=== PATIENT | male | born 1980 | race Caucasian/White ===

== ENCOUNTER 2018-06-20 11:47 | Emergency (ER) | payer OTHER, MEDICAID, SELFPAY ==
[2018-06-20 11:50] VITALS: BP 167/92; PULSE 82; RESP 24; TEMP 37; O2SAT 98
--- NOTE | 2018-06-20 11:54 | DI.RAD.S_ITS ---
PROCEDURE: XR CHEST 1V INDICATIONS: chest pain TECHNIQUE: One view of the chest was acquired. COMPARISON: [facility], , CHEST 2 VIEW, 08/30/2010, 13:55. FINDINGS: Surgical changes and devices: None. Lungs and pleura: No pleural effusions or pneumothorax. Lungs are clear considering reduced inspiratory volume. Mediastinum: Mediastinal contours appear normal. Heart size is normal. Bones and chest wall: No suspicious bony lesions. Overlying soft tissues appear unremarkable. IMPRESSION: Source of current symptoms is not seen. Reduced inspiratory volume. Dictated by: Meet Willett M.D. on 06/20/2018 at 12:04 Approved by: Meet Willett M.D. on 06/20/2018 at 12:05
[2018-06-20] MEDS: ASPIRIN 81 MG TAB 324 MG PO (12:05)
[2018-06-20] MEDS: NITROGLYCERIN 0.4 MG SL TAB SL (12:06)
[2018-06-20] MEDS: SODIUM CHLORIDE 0.9% 500 ML 150 ML IV (12:08)
[2018-06-20 12:09] VITALS: BP 143/63; PULSE 94; RESP 19; O2SAT 97
[2018-06-20 12:09] LABS: Add Manual Diff / Slide Review NO; Basophils Percent Auto 0.5 % (0-2); Eosinophils Percent Auto 2.7 % (2-4); Hematocrit 48.3 % (41-53); Hemoglobin 16.1 g/dL (13.5-17.5); Mean Corpuscular HGB Conc 33.3 % (30-36); Mean Corpuscular Volume 87.1 fL (80-100); Neutrophils Absolute Auto 9900 /uL (3000-5900); Neutrophils Percent Auto 69.8 % (50-75); Platelet Count 357 X10^3/uL (150-400); Red Blood Cell Count 5.54 X10^6/uL (4.5-5.9); Red Cell Distribution Width 13.7 % (11.6-14.8); White Blood Cell Count 14.2 X10^3/uL (4.5-11.0)
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
[2018-06-20 12:12] LABS: INR 1.1 (0.9-1.3); Prothrombin Time 12.2 SECONDS (10.1-12.7)
[2018-06-20 12:14] LABS: PTT Partial Thromboplastin Tim 29 SECONDS (26.4-36.2)
[2018-06-20 12:17] LABS: Alanine Aminotransferase 42 IU/L (21-72); Albumin 4.3 g/dL (3.5-5.0); Albumin Globulin Ratio 1.5 (1.0-2.8); Alkaline Phosphatase 94 U/L (38-126); Aspartate Aminotransferase 21 IU/L (17-59); BUN Creatinine Ratio 17.1 (6-22); Bilirubin Total 0.7 mg/dL (0.2-1.3); Blood Urea Nitrogen 12 mg/dL (9-20); Calcium 8.8 mg/dL (8.4-10.2); Carbon Dioxide 27 mmol/L (22-32); Chloride 104 mmol/L (98-107); Creatine Kinase 86 U/L (55-170); Estimated Glomerular Filt Rate > 60.0 mL/min (>60); Globulin 2.8 g/dL (1.7-4.1); Glucose 129 mg/dL (70-100); HEMOLYSIS < 15 (0-50); Lipase 61 U/L (23-300); Sodium 142 mmol/L (137-145); Total Protein 7.1 g/dL (6.3-8.2)
--- NOTE | 2018-06-20 12:22 | DI.RAD.S_ITS ---
PROCEDURE: XR CHEST 2V INDICATIONS: left lower chest pain TECHNIQUE: 2 views of the chest were acquired. COMPARISON: None. FINDINGS: Surgical changes and devices: None. Lungs and pleura: No pleural effusions or pneumothorax. Lungs are clear. Mediastinum: Mediastinal contours are normal. Heart size is normal. Bones and chest wall: No suspicious bony abnormalities. Soft tissues appear unremarkable. IMPRESSION: No acute cardiopulmonary disease process. Dictated by: Dacia Ramos MD, PhD on 06/20/2018 at 11:43 Approved by: Dacia Ramos MD, PhD on 06/20/2018 at 11:45
[2018-06-20 12:23] VITALS: BP 140/72; PULSE 93
[2018-06-20 12:29] LABS: Troponin I < 0.012 ng/mL (0.01-0.034)
[2018-06-20] MEDS: KETOROLAC 60 MG/2 ML VIAL 30 MG IV (12:37)
[2018-06-20 12:40] VITALS: BP 146/73; PULSE 87; RESP 20; O2SAT 97
[2018-06-20 12:48] LABS: D Dimer < 200 ng/mL (<230)
[2018-06-20 13:00] VITALS: BP 142/62; PULSE 77; RESP 18; O2SAT 98
[2018-06-20 13:16] VITALS: BP 142/62; PULSE 77; RESP 18; O2SAT 97
--- NOTE | 2018-06-28 12:46 | PC.NURSE ---
Late entry: NS infusing started at 1208 stopped at 1316. 160 cc infused w/o ill effect.
== END 2018-06-20 13:18 | disposition home or self-care (01) ==
PROVIDERS: Emergency Provider Emergency Medicine
DX: S29.011A Strain of muscle and tendon of front wall of thorax, initial encounter (principal)
CPT/HCPCS: 36591; 71045; 71046; 80053; 82550; 83690; 84484; 85025; 85379; 85610; 85730; 93005; 93041; 96361; 96374; 99283; 99285; J1885

== ENCOUNTER 2019-09-10 08:32 | Emergency (ER) | payer SELFPAY ==
[2019-09-10 08:52] VITALS: BP 165/110; PULSE 80; RESP 13; TEMP 36.4; O2SAT 98
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
--- NOTE | 2019-09-10 10:07 | PC.NURSE ---
C/o right hip pain and head pain. No apparent bruising, scratches or obvious injuries noted.
== END 2019-09-10 10:53 | disposition home or self-care (01) ==
PROVIDERS: Emergency Provider Emergency Medicine
DX: M25.551 Pain in right hip (principal); S09.90XA Unspecified injury of head, initial encounter; S39.92XA Unspecified injury of lower back, initial encounter; S29.9XXA Unspecified injury of thorax, initial encounter; V09.9XXA Pedestrian injured in unspecified transport accident, initial encounter
CPT/HCPCS: 70450; 71046; 72100; 72125; 72170; 99283; 99284

== ENCOUNTER 2020-03-03 14:55 | Emergency (ER) | payer SELFPAY ==
[2020-03-03 15:10] VITALS: BP 168/111; PULSE 77; RESP 16; TEMP 36.6; O2SAT 98; BMI 34.9
[2020-03-03 16:29] VITALS: BP 175/83; PULSE 63; O2SAT 98
--- NOTE | 2020-03-03 16:29 | PC.NURSE ---
pt brought back into department into rm 7. repeat vitals obtained
--- NOTE | 2020-03-03 16:38 | ED.FALL ---
HPI - Fall General Chief Complaint: Fall Stated Complaint: Fell Down Stairs, Lt Shoulder Pain, Head/Neck Pain Time Seen by Provider: 03/03/20 16:27 Source: patient and family Mode of arrival: Ambulatory History of Present Illness HPI Narrative: Patient driven here by his mother. Blood pressure on triage noted has improved. Patient here after having mechanical fall. Was walking up the steps at home and stepped on 1 of his daughters Lego pieces, startled him and he fell backwards. Awoke at the bottom of the steps. Complains of left shoulder pain and left-sided neck pain. Feel dizzy. Slightly nauseous. No confusion. Not repeating questions. Denies any pre fall events of chest pain headache palpitations abdominal pain or back pain. Denies any other injuries. No chest abdomen back or lower extremity or pelvis pain. No skin injury. Patient placed in hard collar at triage Related Data Previous Rx's Medication Instructions Recorded baclofen 20 mg PO TID PRN #20 tab 03/03/20 ondansetron 4 mg PO Q8H PRN #10 tab 03/03/20 Allergies Allergy/AdvReac Type Severity Reaction Status Date / Time Penicillins Allergy Intermediate Verified 03/03/20 16:39 Review of Systems Review of Systems Narrative: GENERAL: Denies chills, fatigue, malaise, fever, sweats. HEENT: Denies sinus pain, ear pain, sore throat, difficulty swallowing, dizziness. RESPIRATORY: Denies dyspnea, cough, wheezing, hemoptysis, sputum. CARDIOVASCULAR: Denies chest pain, palpitations, orthopnea, edema, GASTROINTESTINAL: Denies vomiting, abdominal pain, diarrhea, constipation, melena. Has nausea : Denies dysuria, frequency, incontinence, hematuria, urinary retention. MUSCULOSKELETAL: Complains of the shoulder joint pain and neck pain SKIN: Denies rash, skin lesions, or other NEUROLOGIC: Denies weakness, headache, numbness, change in speech, confusion, seizures, incoordination. PSYCHIATRIC: No concerning psychosocial issues. ROS Unobtainable: All systems reviewed & are unremarkable except as noted in HPI and below Patient History Medical History Hypertension (Acute) Surgical History No pertinent past surgical history (Acute) Social History Smoking Status: Current every day smoker Smoking Status: Current every day smoker Substance Use Type: marijuana Exam Narrative Exam Narrative: GENERAL: patient appears stated age. Well-nourished, well-developed patient, in no distress, not toxic HEAD: Atraumatic. Normocephalic. No scalp or skull tenderness in or skin injury crepitus or step-off. No bruising or bleeding or abrasion EYES: Pupils equal round and reactive. Extraocular motions intact. No scleral icterus. No injection or drainage. ENT: Nose without bleeding, purulent drainage. Throat without erythema, tonsillar hypertrophy or exudate. Airway patent. NECK: Trachea midline. Patient in hard collar but able to examined. There is left anterior trapezius muscle tenderness extending to the left side of the neck. CARDIOVASCULAR: Regular rate and rhythm without murmurs, gallops, or rubs. RESPIRATORY: Clear to auscultation. Breath sounds equal bilaterally. No wheezes, rales, or rhonchi. GASTROINTESTINAL: Abdomen soft, non-tender, nondistended. EXTREMITIES: No edema, there is tenderness to the anterior left shoulder but no deformity or step-offs. Able to bring left hand above his head and touch his right shoulder. Strong environmental sampling technician in radial pulse on the left side BACK: Nontender without deformity or crepitance. No flank tenderness. NEURO: AOx3. Clear speech no facial droop, no altered mental status. Answers questions appropriately. SKIN: No rash or erythema of visible areas Initial Vital Signs Initial Vital Signs: Vital Signs Temperature 97.8 F 03/03/20 15:10 Pulse Rate 77 03/03/20 15:10 Respiratory Rate 16 03/03/20 15:10 Blood Pressure 168/111 H 03/03/20 15:10 Pulse Oximetry 98 03/03/20 15:10 Course Course Course Narrative: Patient sleeping comfortably. I will patient to review results. C-collar cleared, CT C-spine no acute process. No midline tenderness or step-off. No nausea at this time no dizziness. Orders Ordered: Discontinued Medications Ondansetron HCl (Zofran Odt) 4 mg SL NOW ONE Stop: 03/03/20 16:38 Last Admin: 03/03/20 16:48 Dose: 4 mg Documented by: RIVERA Reevaluation(s) Reevaluation #1: Patient states feeling much better. He desires discharge home. Time: 18:24 Vital Signs Vital signs: Vital Signs - 8 hr 03/03/20 15:10 03/03/20 16:29 Temperature 97.8 F Pulse Rate 77 63 Respiratory Rate 16 Blood Pressure 168/111 H 175/83 H Pulse Oximetry 98 98 MDM - Fall Imaging Data CT scan - head: Radiologist's Impression: [address] [address] [address] Scan Report Signed Patient: Tushar Herron AMR#: [id number] : 1980Acct:[id number] Age/Sex: 40 / MDate of Service: 03/03/20 Loc: ED Accession Number: [id number] Procedure: CT head/brain wo con Ordering Provider: Bennett Cat MD PROCEDURE: CT HEAD/BRAIN WO CON INDICATIONS: Fall/injury TECHNIQUE: Noncontrast 4.5 mm thick angled axial sections acquired from the foramen magnum to the vertex, with coronal and sagittal reformats. For radiation dose reduction, the following was used: automated exposure control, adjustment of mA and/or kV according to patient size. COMPARISON: [facility], CT, CT HEAD/BRAIN WO CON, 09/10/2019, 9:04. [facility], CT, HEAD WITHOUT CONTRAST, 10/28/2008, 19:17. [facility], CT, CT CERVICAL SPINE WO CON, 03/03/2020, 16:37. FINDINGS: Image quality: Excellent. CSF spaces: Basal cisterns are patent. No extra-axial fluid collections. Ventricles are normal in size and shape. Brain: No midline shift. No intracranial masses or hemorrhage. Hanna-white matter interface is normal. Skull and face: Calvarium and visualized facial bones are intact, without suspicious lesions. Sinuses: Moderate mucosal thickening is seen within the maxillary sinuses. No significant mucosal thickening is seen elsewhere within the paranasal sinuses. No abnormal fluid is seen within the mastoid air cells. IMPRESSION: No acute intracranial hemorrhage is seen. No acute intracranial process is seen. Maxillary sinus disease again seen. Dictated by: Nicola Ramirez M.D. on 03/03/2020 at 16:04 Approved by: Nicola Ramirez M.D. on 03/03/2020 at 16:06 CT - cervical spine: Radiologist's Impression: [address] [address] [address] Scan Report Signed Patient: Tushar Herron AMR#: [id number] : 1980Acct:[id number] Age/Sex: 40 / MDate of Service: 03/03/20 Loc: ED Accession Number: [id number] Procedure: CT cervical spine wo con Ordering Provider: Bennett Cat MD PROCEDURE: CT CERVICAL SPINE WO CON INDICATIONS: Fall/injury TECHNIQUE: Noncontrast 3 mm thick sections acquired from the skull base to the T4 level. Sagittal and coronal reformats were then constructed. For radiation dose reduction, the following was used: automated exposure control, adjustment of mA and/or kV according to patient size. COMPARISON: [facility], CT, C-SPINE WITHOUT CONTRAST, 08/30/2010, 13:26. [facility], CT, CT HEAD/BRAIN WO CON, 03/03/2020, 16:37. [facility], CT, CT CERVICAL SPINE WO CON, 09/10/2019, 9:04. FINDINGS: Image quality: This examination is somewhat limited by quantum mottle artifact. Bones: No fractures or dislocations. Visualized superior ribs are intact. Mild to moderate disc space narrowing is seen at C5-C6 and C6-C7. Soft tissues: Prevertebral soft tissues are normal in thickness. No paravertebral hematomas. No apical pneumothoraces. IMPRESSION: No acute fractures are seen. Dictated by: Nicola Ramirez M.D. on 03/03/2020 at 16:06 Approved by: Nicola Ramirez M.D. on 03/03/2020 at 16:08 X-ray left shoulder: Radiologist's Impression: [address] [address] XRay Report Signed Patient: Tushar Herron AMR#: [id number] : 1980Acct:[id number] Age/Sex: 40 / MDate of Service: 03/03/20 Loc: ED Accession Number: [id number] Procedure: XR shoulder LT min 2V Ordering Provider: Bennett Cat MD PROCEDURE: XR SHOULDER LT MIN 2V INDICATIONS: pain/injury TECHNIQUE: 3 views of the shoulder were acquired. COMPARISON: None. FINDINGS: Bones: No fractures or dislocations. No suspicious bony lesions. Visualized ribs appear intact. Soft tissues: No suspicious soft tissue calcifications. IMPRESSION: Left shoulder without acute fracture or dislocation. If there is persistent clinical concern for occult fracture given adequate mechanism of injury, consider repeat imaging in 10-14 days. Dictated by: Johnnie De Jesus M.D. on 03/03/2020 at 18:09 Approved by: Johnnie De Jesus M.D. on 03/03/2020 at 18:12 [facility] Narrative Medical decision making narrative: Appropriate for discharge home. No altered mental status. Instructions for concussive syndrome given to patient. As well as shoulder strain/contusion Discharge Plan Departure Patient Disposition: Home Clinical Impression: Concussion with loss of consciousness Qualifiers: Encounter type: initial encounter Qualified Code(s): S06.0X9A - Concussion with loss of consciousness of unspecified duration, initial encounter Acute cervical myofascial strain Qualifiers: Encounter type: initial encounter Qualified Code(s): S16.1XXA - Strain of muscle, fascia and tendon at neck level, initial encounter Contusion of left shoulder Qualifiers: Encounter type: initial encounter Qualified Code(s): S40.012A - Contusion of left shoulder, initial encounter Discharge Date/Time: 03/03/20 18:49 Instructions: DI for Concussion, DI for Contusion, DI for Cervical Muscle Strain, DI for Shoulder Pain Activity Restrictions/Additional Instructions: No driving tonight. Return if worse. See family doctor in a week for recheck. Also have your blood pressure rechecked. Continue home medications. Return if worse or any questions or concerns. Her medications have been electronically sent to [facility] Prescriptions: New ondansetron 4 mg tablet,disintegrating 4 mg PO Q8H PRN (Reason: nausea and vomiting) Qty: 10 RF: 0 baclofen 20 mg tablet 20 mg PO TID PRN (Reason: pain) Qty: 20 RF: 0 Stand Alone Forms: Work Release Note
[2020-03-03] MEDS: ONDANSETRON 4 MG ODT SL (16:48)
--- NOTE | 2020-03-03 17:42 | DI.RAD.S_ITS ---
PROCEDURE: XR SHOULDER LT MIN 2V INDICATIONS: pain/injury TECHNIQUE: 3 views of the shoulder were acquired. COMPARISON: None. FINDINGS: Bones: No fractures or dislocations. No suspicious bony lesions. Visualized ribs appear intact. Soft tissues: No suspicious soft tissue calcifications. IMPRESSION: Left shoulder without acute fracture or dislocation. If there is persistent clinical concern for occult fracture given adequate mechanism of injury, consider repeat imaging in 10-14 days. Dictated by: Johnnie De Jesus M.D. on 03/03/2020 at 18:09 Approved by: Johnnie De Jesus M.D. on 03/03/2020 at 18:12
[2020-03-03 18:40] VITALS: BP 151/87; PULSE 77; O2SAT 100
== END 2020-03-03 18:49 | disposition home or self-care (01) ==
PROVIDERS: Emergency Provider Emergency Medicine
DX: S06.0X9A Concussion with loss of consciousness of unspecified duration, initial encounter (principal); S16.1XXA Strain of muscle, fascia and tendon at neck level, initial encounter; S40.012A Contusion of left shoulder, initial encounter; R11.0 Nausea; W10.9XXA Fall (on) (from) unspecified stairs and steps, initial encounter
CPT/HCPCS: 70450; 72125; 73030; 99284

== ENCOUNTER 2020-03-14 09:37 | Emergency (ER) | payer SELFPAY ==
[2020-03-14] VITALS (27 sets, daily range): BP systolic 148–191; BP diastolic 73–104; PULSE 75–98; RESP 18; TEMP 36.9–37.1; O2SAT 96–99
--- NOTE | 2020-03-14 09:54 | DI.CT.S_ITS ---
PROCEDURE: CT ABDOMEN PELVIS WO/W CON INDICATIONS: Left flank pain, LCV tenderness and LLQ tenderness TECHNIQUE: After the administration of oral contrast, 5 mm thick sections acquired from the diaphragms to the iliac crests. After the administration of intravenous contrast, 5 mm thick sections acquired from the diaphragms to the symphysis. 5 mm thick coronal and sagittal reformats were acquired. For radiation dose reduction, the following was used: automated exposure control, adjustment of mA and/or kV according to patient size. COMPARISON: None. FINDINGS: Image quality: Excellent. ABDOMEN: Lung bases: Lung bases are clear. Heart size is normal. Solid organs: Liver is normal in size and enhancement. Gallbladder is within normal limits . Biliary system is non-dilated. Pancreas enhances normally. Spleen is normal in size and enhancement. No adrenal nodules. Right kidney is normal in size. There is mild left renal enlargement. There is mild left perinephric fat stranding. There is a nonobstructing 8 mm calculus within the left interpolar/inferior pole kidney anteriorly. There is a nonobstructing 4 mm calculus within the inferior pole left kidney. Within the left interpolar kidney posteriorly, there is a 44 mm diameter low-density focus which demonstrates surrounding hypoperfusion within the adjacent renal parenchyma. Bowel and peritoneum: Stomach, small and large bowel loops are normal in caliber and wall thickness. No free fluid or air. Normal appendix. Nodes and vessels: No retroperitoneal or mesenteric adenopathy by size criteria. Aorta and inferior vena are normal in caliber. Miscellaneous: No ventral hernias. PELVIS: Genitourinary: Bladder wall thickness is normal. Miscellaneous: No inguinal hernias or adenopathy. Bones: No suspicious bony lesions. No vertebral body compression fractures. IMPRESSION: 1. Left renal abscess with surrounding pyelonephritis. 2. Nonobstructing left renal calculi. 3. No evidence of urinary tract obstruction. 4. Normal appendix. Dictated by: James Iglesias M.D. on 03/14/2020 at 9:52 Approved by: James Iglesias M.D. on 03/14/2020 at 9:56
--- NOTE | 2020-03-14 09:57 | ED.ABDPAIN ---
HPI - Abdominal Pain General Chief Complaint: Abdominal Pain Stated Complaint: PAIN IN LOWER ABD LT SIDE Time Seen by Provider: 03/14/20 09:45 Source: patient Mode of arrival: Wheelchair Limitations: no limitations History of Present Illness HPI narrative: CC: Left flank Pain HPI: The patient is a 40-year-old male who developed the sudden onset of left lower abdominal pain. The patient is writhing in pain and discomfort like he is having a kidney stone but denies a history of kidney stones. The pain is sharp in nature and 8/10 in intensity. He states that it hurts to take a deep breath and cough. It is worse with breathing. He denies any significant chest pain or cough. He has had no palpitations or dizziness. He denies any fall or injury. He has had no headache neck pain but feels cold with chills. He has had no fever. He has had normal bowel movements with his last bowel movement being yesterday. He denies any diarrhea melena or hematochezia. He denies a history of Crohn's disease ulcerative colitis diverticulitis or irritable bowel syndrome. He denies any fall or injury. He denies a history of asthma COPD myocardial infarction diabetes mellitus but admits to history of hypertension. He smokes marijuana and cigarettes but does not drink alcohol. He denies a history of pancreatitis. Related Data Home Medications Medication Instructions Recorded Confirmed No Known Home Medications 03/14/20 03/14/20 Allergies Allergy/AdvReac Type Severity Reaction Status Date / Time Penicillins Allergy Intermediate Verified 03/14/20 09:47 Review of Systems Review of Systems Narrative: Review of systems were all negative except for those mentioned in history of present illness. Patient History Medical History Hypertension (Acute) Surgical History No pertinent past surgical history (Acute) Social History Smoking Status: Current every day smoker Smoking Status: Current every day smoker alcohol intake frequency: 0-2 drinks per day Substance Use Type: marijuana Exam Narrative Exam Narrative: PHYSICAL EXAM: CONSTITUTIONAL: Awake, Alert, Oriented, he is very uncomfortable writhing in pain and discomfort. HEAD: AT/NC EENT: PERRL, FROM of eyes, no discharge,. NOSE:No epistaxis or nasal drainage MOUTH:Oral mucosa is moist and pink, posterior pharynx is without erythema or exudate. NECK: Supple, no obvious JVD, Trachea is midline without stridor, no palpable LN. SPINE: Palpation of the cervical, Thoracic, Lumbar or Sacral spine reveals no gross deformity or tenderness. The patient has tender to palpation over his left costovertebral angle. THORAX: No deformity, retractions, chest wall tenderness. LUNGS: Clear, symmetrical breath sounds without respiratory distress. HEART: Normal heart tones, regular rhythm and rate without murmur. ABDOMEN: The patient's abdomen is mildly distended. He is tender to palpation in the left upper and left lower quadrants with mild guarding no rebound no rigidity. No palpable mass. EXTREMITIES: No edema, deformity, tenderness. SKIN: No rash, bruising, petechiae or purpura. NEURO: Awake, alert, oriented, conversive, cranial nerves II-XII are symmetrical , moves all 4 extremities and is ambulatory. Initial Vital Signs Initial Vital Signs: Vital Signs Temperature 98.8 F 03/14/20 09:40 Pulse Rate 90 03/14/20 09:40 Respiratory Rate 18 03/14/20 09:40 Blood Pressure 174/104 H 03/14/20 09:40 Pulse Oximetry 99 03/14/20 09:40 Course Course Course Narrative: 1130: CT scan of the abdomen reveals IMPRESSION: 1. Left renal abscess with surrounding pyelonephritis. 2. Nonobstructing left renal calculi. 3. No evidence of urinary tract obstruction. 4. Normal appendix. Will call the hospitalist to admit this patient. Two blood cultures have been obtained on the patient and the patient has been administered 2 g of Maxipime. 1143: Dr. araiza talk off arm does not do surgery on the kidney for an abscess he recommended the patient be referred to neurology. I will call Dr. Lezama and discuss the patient with him. 1147: I discussed the patient with Dr. Lezama who states that the patient needs to be transferred to either [place] or [facility] to be treated by medicine for his pyelonephritis and Interventional Radiology to insert a arm catheter drain for the abscess. I will discuss the options with the patient and inform him of the findings. 1200; the patient was informed of the pyelonephritis and arm left renal abscess and the need for it to be drained by interventional radiology. The patient elected to be transferred to [facility] but they have no beds available and boarding in the emergency department. The patient was informed of this and he has elected to try being transferred to [facility] in [place]. 1314: Dr. Lundberg the urologist at [facility] and telling him did not call me back. I called and discussed the patient again with Dr. Montgomery at [facility], billing him and he informed me that he spoke with Dr. reymunod Blackmon. The patient's abscess is a 44 mm hypodense area over the left kidney without mention of any air-fluid levels. Dr. Montgomery and Dr. Lundberg states that normally they do not drain these but treat with IV antibiotics and if he progressively gets worse refer to interventional radiology to drain. Rarely do they have to drain these. They recommend treating the patient as acute pyelonephritis with IV antibiotics. 1420 I discussed the patient with the hospitalist Dr. Davis she is going to call and talk to someone about this patient she is reluctant to admit this patient without the availability of Interventional Radiology. She requested that we order a procalcitonin on the patient. 1428: Dr. Davis called back and refused to admit the patient without IR back up to drain the cyst/abscess. 1433: I called and re-discussed the patient with Dr. Montgomery at [facility]. He states that his urologist Dr. Lundberg does not recommend that this be drained by Urology or eye are and since the ORs at [facility] are not available , he refuses to accept the patient in transfer. 1456;I will call and discuss the patient with [facility]. 1520: I just gave report to the transfer center at [facility]. 1654 the patient and I believe his father were informed that we are waiting for [facility] to call back to determine whether not they will accept the patient in transfer. He was informed that [facility] has no beds to except the patient being transferred and because [facility] in [place] does not have a functional operating rooms refuses to accept the patient to be transferred. 1743: I discussed the patient with Dr. Whalen the hospitalist at [facility] who has accepted the patient being transferred. The transfer center will call back with the room. The patient is to be admitted to a general medical floor as a direct admit. Orders Ordered: Discontinued Medications Hydromorphone HCl (Dilaudid) 1 mg IV NOW ONE Stop: 03/14/20 09:54 Last Admin: 03/14/20 10:05 Dose: 1 mg Documented by: TRACE Hydromorphone HCl (Dilaudid) 1 mg IV NOW ONE Stop: 03/14/20 11:48 Last Admin: 03/14/20 11:50 Dose: 1 mg Documented by: TRACE Hydromorphone HCl (Dilaudid) 1 mg IV NOW ONE Stop: 03/14/20 18:52 Last Admin: 03/14/20 19:04 Dose: 1 mg Documented by: TRACE Sodium Chloride (Normal Saline 0.9%) 1,000 mls @ 1,000 mls/hr IV BOLUS ONE Stop: 03/14/20 10:52 Last Infusion: 03/14/20 11:32 Dose: 0 mls/hr Documented by: Admin: 03/14/20 10:05 Dose: 1,000 mls/hr Documented by: TRACE Cefepime HCl 2 gm/ Sodium (Chloride) 100 mls @ 200 mls/hr IV NOW ONE Stop: 03/14/20 11:17 Last Infusion: 03/14/20 12:13 Dose: 0 mls/hr Documented by: Admin: 03/14/20 11:42 Dose: 200 mls/hr Documented by: TRACE Ketorolac Tromethamine (Toradol) 30 mg IV NOW ONE Stop: 03/14/20 14:33 Last Admin: 03/14/20 14:54 Dose: 30 mg Documented by: TRACE Nicotine (Nicoderm) 21 mg TOP NOW ONE Stop: 03/14/20 14:05 Last Admin: 03/14/20 14:13 Dose: 21 mg Documented by: TRACE Ondansetron HCl (Zofran) 4 mg IV NOW ONE Stop: 03/14/20 09:54 Last Admin: 03/14/20 10:05 Dose: 4 mg Documented by: TRACE Vital Signs Vital signs: Vital Signs - 8 hr 03/14/20 11:08 03/14/20 11:09 03/14/20 11:30 Pulse Rate 90 86 88 Blood Pressure 173/98 H 164/91 H Pulse Oximetry 98 99 99 03/14/20 12:00 03/14/20 12:30 03/14/20 12:31 Pulse Rate 89 80 75 Blood Pressure 179/84 H 168/93 H Pulse Oximetry 97 96 96 03/14/20 13:00 03/14/20 13:01 03/14/20 13:30 Pulse Rate 78 89 Blood Pressure 167/98 H Pulse Oximetry 96 98 03/14/20 13:31 03/14/20 13:37 03/14/20 14:00 Pulse Rate 87 88 79 Blood Pressure 158/90 H 180/100 H Pulse Oximetry 98 99 97 03/14/20 14:20 03/14/20 14:29 03/14/20 14:30 Pulse Rate 87 86 85 Blood Pressure 166/88 H 166/88 H Pulse Oximetry 98 99 99 03/14/20 15:00 03/14/20 15:01 03/14/20 15:31 Pulse Rate 91 H 90 Blood Pressure 177/86 H 178/79 H Pulse Oximetry 97 97 03/14/20 16:00 03/14/20 16:31 03/14/20 17:00 Pulse Rate 98 H 90 86 Blood Pressure 191/90 H 183/86 H Pulse Oximetry 98 98 98 03/14/20 17:01 Pulse Rate 88 Blood Pressure 181/81 H Pulse Oximetry 98 MDM - Abdominal Pain Medical Records Attestation: I reviewed the patient's medical records. Lab Data Attestation: I reviewed the patient's lab results. Result diagrams: 03/14/20 10:00 03/14/20 10:00 Labs: Lab Results 03/14/20 03/14/20 03/14/20 Range/Units 10:00 10:00 10:00 WBC 17.3 H (4.5-11.0) X10^3/uL RBC 5.08 (4.5-5.9) X10^6/uL Hgb 15.0 (13.5-17.5) g/dL Hct 44.9 (41-53) % MCV 88.3 (80-100) fL MCH 29.5 (26-34) PG MCHC 33.4 (30-36) % RDW 13.8 (11.6-14.8) % Plt Count 308 (150-400) X10^3/uL Neut % (Auto) 77.3 H (50-75) % Lymph % (Auto) 15.7 L (25-40) % [place] % (Auto) 5.6 (3-14) % Eos % (Auto) 1.0 L (2-4) % Baso % (Auto) 0.4 (0-2) % Neut # (Auto) 17693 H (3732-2324) /uL Lymph # (Auto) 2700 (5776-6745) /uL [place] # (Auto) 1000 H (0-900) /uL Eos # (Auto) 200 (0-450) /uL Baso # (Auto) 100 (0-100) /uL ESR (0-15) MM/HR Sodium 134 L (137-145) mmol/L Potassium 3.8 (3.4-5.1) mmol/L Chloride 98 (98-107) mmol/L Carbon Dioxide 28 (22-32) mmol/L BUN 10 (9-20) mg/dL Creatinine 0.65 L (0.66-1.25) mg/dL Estimated GFR > 60.0 (>60) mL/min BUN/Creatinine Ratio 15.4 (6-22) Glucose 191 H (70-100) mg/dL Lactate 1.2 (0.7-2.1) mmol/L Calcium 9.3 (8.4-10.2) mg/dL Total Bilirubin 0.9 (0.2-1.3) mg/dL AST 22 (17-59) IU/L ALT 32 (<50) IU/L Alkaline Phosphatase 104 (38-126) U/L C-Reactive Protein (<1.0) mg/dL Total Protein 7.4 (6.3-8.2) g/dL Albumin 4.3 (3.5-5.0) g/dL Globulin 3.1 (1.7-4.1) g/dL Albumin/Globulin Ratio 1.4 (1.0-2.8) Lipase 38 (23-300) U/L Procalcitonin (<0.5) ng/mL Urine Color Urine Appearance Urine pH (4.5-8.0) Ur Specific [place] (1.000-1.035) Urine Protein (Negative) Urine Glucose (UA) (Negative) g/dL Urine Ketones (NEGATIVE) Urine Occult Blood (Negative) Urine Nitrate (Negative) Urine Bilirubin (NEGATIVE) Urine Urobilinogen (0.2) E.U./dL Ur Leukocyte Esterase (NEGATIVE) Urine RBC (0-5/HPF) Urine WBC (0-5/HPF) Ur Squamous Epith Cells (0-5/HPF) Urine Bacteria (None) Ur Culture Indicated? COVID-19 PCR (Negative) 03/14/20 03/14/20 03/14/20 Range/Units 10:00 10:00 10:00 WBC (4.5-11.0) X10^3/uL RBC (4.5-5.9) X10^6/uL Hgb (13.5-17.5) g/dL Hct (41-53) % MCV (80-100) fL MCH (26-34) PG MCHC (30-36) % RDW (11.6-14.8) % Plt Count (150-400) X10^3/uL Neut % (Auto) (50-75) % Lymph % (Auto) (25-40) % [place] % (Auto) (3-14) % Eos % (Auto) (2-4) % Baso % (Auto) (0-2) % Neut # (Auto) (3722-3670) /uL Lymph # (Auto) (8198-1254) /uL [place] # (Auto) (0-900) /uL Eos # (Auto) (0-450) /uL Baso # (Auto) (0-100) /uL ESR 3 (0-15) MM/HR Sodium (137-145) mmol/L Potassium (3.4-5.1) mmol/L Chloride (98-107) mmol/L Carbon Dioxide (22-32) mmol/L BUN (9-20) mg/dL Creatinine (0.66-1.25) mg/dL Estimated GFR (>60) mL/min BUN/Creatinine Ratio (6-22) Glucose (70-100) mg/dL Lactate (0.7-2.1) mmol/L Calcium (8.4-10.2) mg/dL Total Bilirubin (0.2-1.3) mg/dL AST (17-59) IU/L ALT (<50) IU/L Alkaline Phosphatase (38-126) U/L C-Reactive Protein 4.9 H (<1.0) mg/dL Total Protein (6.3-8.2) g/dL Albumin (3.5-5.0) g/dL Globulin (1.7-4.1) g/dL Albumin/Globulin Ratio (1.0-2.8) Lipase (23-300) U/L Procalcitonin < 0.05 (<0.5) ng/mL Urine Color Urine Appearance Urine pH (4.5-8.0) Ur Specific [place] (1.000-1.035) Urine Protein (Negative) Urine Glucose (UA) (Negative) g/dL Urine Ketones (NEGATIVE) Urine Occult Blood (Negative) Urine Nitrate (Negative) Urine Bilirubin (NEGATIVE) Urine Urobilinogen (0.2) E.U./dL Ur Leukocyte Esterase (NEGATIVE) Urine RBC (0-5/HPF) Urine WBC (0-5/HPF) Ur Squamous Epith Cells (0-5/HPF) Urine Bacteria (None) Ur Culture Indicated? COVID-19 PCR (Negative) 03/14/20 03/14/20 Range/Units 10:55 12:10 WBC (4.5-11.0) X10^3/uL RBC (4.5-5.9) X10^6/uL Hgb (13.5-17.5) g/dL Hct (41-53) % MCV (80-100) fL MCH (26-34) PG MCHC (30-36) % RDW (11.6-14.8) % Plt Count (150-400) X10^3/uL Neut % (Auto) (50-75) % Lymph % (Auto) (25-40) % [place] % (Auto) (3-14) % Eos % (Auto) (2-4) % Baso % (Auto) (0-2) % Neut # (Auto) (3216-9534) /uL Lymph # (Auto) (7144-0517) /uL [place] # (Auto) (0-900) /uL Eos # (Auto) (0-450) /uL Baso # (Auto) (0-100) /uL ESR (0-15) MM/HR Sodium (137-145) mmol/L Potassium (3.4-5.1) mmol/L Chloride (98-107) mmol/L Carbon Dioxide (22-32) mmol/L BUN (9-20) mg/dL Creatinine (0.66-1.25) mg/dL Estimated GFR (>60) mL/min BUN/Creatinine Ratio (6-22) Glucose (70-100) mg/dL Lactate (0.7-2.1) mmol/L Calcium (8.4-10.2) mg/dL Total Bilirubin (0.2-1.3) mg/dL AST (17-59) IU/L ALT (<50) IU/L Alkaline Phosphatase (38-126) U/L C-Reactive Protein (<1.0) mg/dL Total Protein (6.3-8.2) g/dL Albumin (3.5-5.0) g/dL Globulin (1.7-4.1) g/dL Albumin/Globulin Ratio (1.0-2.8) Lipase (23-300) U/L Procalcitonin (<0.5) ng/mL Urine Color Yellow Urine Appearance Clear Urine pH 7.0 (4.5-8.0) Ur Specific [place] <=1.005 (1.000-1.035) Urine Protein Negative (Negative) Urine Glucose (UA) Negative (Negative) g/dL Urine Ketones Negative (NEGATIVE) Urine Occult Blood 1+ H (Negative) Urine Nitrate Negative (Negative) Urine Bilirubin Negative (NEGATIVE) Urine Urobilinogen 0.2 (0.2) E.U./dL Ur Leukocyte Esterase Trace H (NEGATIVE) Urine RBC 1-5/hpf (0-5/HPF) Urine WBC 1-5/hpf (0-5/HPF) Ur Squamous Epith Cells 0-1 /hpf (0-5/HPF) Urine Bacteria Few (2-10) H (None) Ur Culture Indicated? Specimen cultured COVID-19 PCR Negative (Negative) Discharge Plan Departure Patient Disposition: [facility] Clinical Impression: Acute left flank pain, Abscess of left kidney, Acute pyelonephritis Discharge Date/Time: 03/14/20 19:15 Prescriptions: No Action No Known Home Medications RF: 0
[2020-03-14 10:05] LABS: Add Manual Diff / Slide Review NO; Basophils Absolute Auto 100 /uL (0-100); Basophils Percent Auto 0.4 % (0-2); Eosinophils Absolute Auto 200 /uL (0-450); Hematocrit 44.9 % (41-53); Lymphocytes Absolute Auto 2700 /uL (1100-4500); Lymphocytes Percent Auto 15.7 % (25-40); Mean Corpuscular HGB Conc 33.4 % (30-36); Mean Corpuscular Hemoglobin 29.5 PG (26-34); Mean Corpuscular Volume 88.3 fL (80-100); Monocytes Absolute Auto 1000 /uL (0-900); Monocytes Percent Auto 5.6 % (3-14); Neutrophils Absolute Auto 13400 /uL (1500-7000); Neutrophils Percent Auto 77.3 % (50-75); Platelet Count 308 X10^3/uL (150-400); Red Blood Cell Count 5.08 X10^6/uL (4.5-5.9); Red Cell Distribution Width 13.8 % (11.6-14.8); White Blood Cell Count 17.3 X10^3/uL (4.5-11.0)
[2020-03-14] MEDS: HYDROMORPHONE 1 MG INJ IV ×3 (10:05→19:04)
[2020-03-14] MEDS: ONDANSETRON 4 MG/2 ML INJ IV (10:05)
[2020-03-14] MEDS: SODIUM CHLORIDE 0.9% 1,000 ML 1000 ML IV (10:05)
[2020-03-14 10:19] LABS: Lactate (Lactic Acid) 1.2 mmol/L (0.7-2.1)
[2020-03-14 10:21] LABS: Alanine Aminotransferase 32 IU/L (<50); Albumin 4.3 g/dL (3.5-5.0); Albumin Globulin Ratio 1.4 (1.0-2.8); Alkaline Phosphatase 104 U/L (38-126); Aspartate Aminotransferase 22 IU/L (17-59); BUN Creatinine Ratio 15.4 (6-22); Bilirubin Total 0.9 mg/dL (0.2-1.3); Blood Urea Nitrogen 10 mg/dL (9-20); Calcium 9.3 mg/dL (8.4-10.2); Carbon Dioxide 28 mmol/L (22-32); Chloride 98 mmol/L (98-107); Estimated Glomerular Filt Rate > 60.0 mL/min (>60); Globulin 3.1 g/dL (1.7-4.1); Glucose 191 mg/dL (70-100); HEMOLYSIS < 15 (0-50); Lipase 38 U/L (23-300); Potassium 3.8 mmol/L (3.4-5.1); Sodium 134 mmol/L (137-145); Total Protein 7.4 g/dL (6.3-8.2)
[2020-03-14 11:24] LABS: Appearance Urine UA CLEAR; Bilirubin Urine UA NEGATIVE (NEGATIVE); Color Urine UA YELLOW; Glucose Urine UA NEGATIVE (Negative); Ketones Urine UA NEGATIVE (NEGATIVE); Leukocyte Esterase Urine UA TRACE (NEGATIVE); Nitrite Urine UA NEGATIVE (Negative); Occult Blood Urine UA 1+ (Negative); Protein Urine UA NEGATIVE (Negative); Specific Gravity Urine UA <=1.005 (1.000-1.035); Urobilinogen Urine UA 0.2 E.U./dL (0.2)
[2020-03-14 11:33] LABS: Bacteria Urine Few (2-10); Culture Indicated Urine Specimen Cultured; RBC Urine 1-5/HPF (0-5/HPF); Squamous Epithelial Cell Urine 0-1 /HPF (0-5/HPF); WBC Urine 1-5/HPF (0-5/HPF)
[2020-03-14] MEDS: CEFEPIME 2 GM in SODIUM CHLORIDE 0.9% 100 ML 200 ML IV (11:42)
[2020-03-14 13:18] LABS: COVID19 -Nasal RAPID Negative (Negative)
[2020-03-14] MEDS: NICOTINE 21 MG PATCH TOP (14:13)
[2020-03-14 14:40] LABS: C-Reactive Protein Quant 4.9 mg/dL (<1.0)
[2020-03-14 14:53] LABS: Procalcitonin < 0.05 ng/mL (<0.5)
[2020-03-14] MEDS: KETOROLAC 60 MG/2 ML VIAL 30 MG IV (14:54)
[2020-03-14 15:03] LABS: Erythrocyte Sedimentation Rate 3 MM/HR (0-15)
== END 2020-03-14 19:15 | disposition short-term general hospital (02) ==
PROVIDERS: Emergency Provider Emergency Medicine
DX: R10.32 Left lower quadrant pain (principal); N15.1 Renal and perinephric abscess; N10 Acute pyelonephritis; I10 Essential (primary) hypertension
CPT/HCPCS: 36415; 74178; 80053; 81001; 83605; 83690; 84145; 85025; 85651; 86140; 87040; 87086; 87635; 96361; 96365; 96375; 96376; 99284; 99285; J0692; J1170; J1885; J2405; Q9967

== ENCOUNTER 2020-12-10 15:35 | Emergency (ER) | payer SELFPAY ==
[2020-12-10 15:40] VITALS: BP 227/118; PULSE 94; RESP 16; TEMP 36.7; O2SAT 96; BMI 38.9
--- NOTE | 2020-12-10 15:51 | DI.RAD.S_ITS ---
PROCEDURE: XR SHOULDER RT MIN 2V INDICATIONS: fell down 1.5 flight stairs,mod trauma TECHNIQUE: 3 views of the shoulder were acquired. COMPARISON: [facility], CR, XR SHOULDER LT MIN 2V, 03/03/2020, 17:39. FINDINGS: Bones: There is a linear lucency near the distal right clavicle with possible cortical irregularity/step-off. There is overlying soft tissue swelling. This may represent a subtle nondisplaced fracture. Coracoclavicular and acromioclavicular intervals are maintained. Remainder of the visualized osseous structures appear intact. No suspicious bony lesions. Visualized ribs appear intact. Soft tissues: No suspicious soft tissue calcifications. IMPRESSION: Possible nondisplaced distal right clavicle fracture. The coracoclavicular and acromioclavicular intervals are maintained. Recommend correlating with physical examination for point tenderness over the acromioclavicular joint and distal clavicle. Dictated by: Johnnie De Jesus M.D. on 12/10/2020 at 15:26 Approved by: Johnnie De Jesus M.D. on 12/10/2020 at 15:29
--- NOTE | 2020-12-10 15:51 | DI.CT.S_ITS ---
PROCEDURE: CT HEAD/BRAIN WO CON INDICATIONS: fell down 1.5 flight stairs,mod trauma TECHNIQUE: Noncontrast 4.5 mm thick angled axial sections acquired from the foramen magnum to the vertex, with coronal and sagittal reformats. For radiation dose reduction, the following was used: automated exposure control, adjustment of mA and/or kV according to patient size. COMPARISON: [facility], CT, CT HEAD/BRAIN WO CON, 03/03/2020, 16:37. [facility], CT, CT HEAD/BRAIN WO CON, 09/10/2019, 9:04. FINDINGS: Image quality: Excellent. CSF spaces: Basal cisterns are patent. No extra-axial fluid collections. Ventricles are normal in size and shape. Brain: No midline shift. No intracranial masses or hemorrhage. [place]-white matter interface is normal. Skull and face: Calvarium and visualized facial bones are intact, without suspicious lesions. Sinuses: Visualized sinuses and mastoids are clear. IMPRESSION: CT head without acute intracranial abnormalities. No acute calvarial fractures. Dictated by: Johnnie De Jesus M.D. on 12/10/2020 at 15:29 Approved by: Johnnie De Jesus M.D. on 12/10/2020 at 15:32
--- NOTE | 2020-12-10 15:51 | DI.CT.S_ITS ---
PROCEDURE: CT CERVICAL SPINE WO CON INDICATIONS: fell down 1.5 flight stairs,mod trauma TECHNIQUE: Noncontrast 3 mm thick sections acquired from the skull base to the T4 level. Sagittal and coronal reformats were then constructed. For radiation dose reduction, the following was used: automated exposure control, adjustment of mA and/or kV according to patient size. COMPARISON: [facility], CT, CT CERVICAL SPINE WO CON, 03/03/2020, 16:37. [facility], CT, CT CERVICAL SPINE WO CON, 09/10/2019, 9:04. FINDINGS: Image quality: Excellent. Bones: No acute fractures or dislocations. No acute compression fractures of the vertebral bodies. Craniocervical junction is intact. C1-C2 relationship is preserved. Visualized superior ribs are intact. Straightening of cervical lordosis which may be due to patient positioning and/or concurrent muscle spasms. Multilevel cervical spondylosis is again noted, most severe at C6-7. There is disc space loss, degenerative endplate changes and endplate osteophyte formation at this level. Soft tissues: Prevertebral soft tissues are normal in thickness. No paravertebral hematomas. No apical pneumothoraces. IMPRESSION: 1. CT cervical spine without acute fracture or dislocation. 2. Mild straightening of normal cervical lordosis likely related to positioning and/or concurrent muscle spasms. 3. Multilevel cervical spondylosis most severe at C6-7. Dictated by: Johnnie De Jesus M.D. on 12/10/2020 at 15:33 Approved by: Johnnie De Jesus M.D. on 12/10/2020 at 15:39
--- NOTE | 2020-12-10 16:45 | ED_ITS ---
HPI - Fall General Chief Complaint: Fall Stated Complaint: fall, head injury, dizzy Time Seen by Provider: 12/10/20 15:40 Source: patient Mode of arrival: Ambulatory Limitations: no limitations History of Present Illness HPI Narrative: 40-year-old male daily smoker with noncontributory medical history presents with a chief complaint of an accidental ground level fall down approximately 1 flight of stairs. He struck the back of his head but denies any loss of consciousness, nausea or vomiting. He has a bit of dizziness since this occurred but denies any other focal neurologic findings. He does have some midl ine tenderness of his cervical spinous seems to be worse with motion and improves with rest. He takes no blood thinners, denies alcohol or street drug use. He is activated as a modified trauma based on his mechanism of injury. His only complaint otherwise is of some right shoulder pain that seems to be worse with motion and improves with rest. He states his fall was secondary to not paying attention to where his feet were. MD complaint: fall Onset (ago): minute(s) Fall from: standing Fall witnessed: no Place fall occurred: home Loss of consciousness: none Prolonged down time: no Symptoms prior to fall: none Context: tripped/slipped Location of injury: head Severity: mild Related Data Previous Rx's Medication Instructions Recorded atenolol 50 mg PO DAILY #30 tab 12/10/20 ondansetron 4 mg PO TID-QID PRN #10 tab 12/10/20 Allergies Allergy/AdvReac Type Severity Reaction Status Date / Time Penicillins Allergy Intermediate Verified 12/10/20 15:40 Review of Systems Constitutional Constitutional: Denies chills, Denies fatigue, Denies fever(s), Denies frequent falls, Denies lethargy and Denies weakness Eyes Eyes: Denies change in vision, Denies eye discharge, Denies irritation and Denies loss of vision ENT Ears, Nose, Mouth, and Throat: Denies change in voice, Reports dizziness, Reports neck pain, Denies sore throat and Denies throat swelling Cardiovascular Cardiovascular: Denies chest pain, Denies irregular heart rhythm, Denies lightheadedness, Denies palpitations, Denies dyspnea, Denies dyspnea on exertion and Denies orthopnea Respiratory Respiratory: Denies cough, Denies dyspnea, Denies dyspnea on exertion and Denies wheezing Gastrointestinal Gastrointestinal: Denies abdominal pain, Denies change in bowel habits, Denies diarrhea, Denies nausea and Denies vomiting Musculoskeletal Musculoskeletal: Reports neck pain and Denies numbness Integumentary/Breasts Skin/Breast: Denies pruritus, Denies erythema, Denies rash and Denies wounds Neurologic Neurologic: Denies behavioral changes, Denies confusion, Reports dizziness, Denies frequent falls, Denies loss of vision, Denies numbness and Denies weakness Psychiatric Psychiatric: Denies anxiety, Denies behavioral changes, Denies confusion, Denies depression, Denies homicidal ideation and Denies suicidal ideation Endocrine Endocrine: Denies fatigue, Denies flushing and Denies palpitations Hematologic/Lymphatic Hematologic/Lymphatic: Denies easy bruising Allergic/Immunologic Allergic/Immunologic: Denies urticaria, Denies throat swelling and Denies wheezing Patient History Medical History (Updated 12/10/20 @ 17:09 by Axel Colorado DO) Hypertension Surgical History No pertinent past surgical history Social History Smoking Status: Current every day smoker Smoking Status: Current every day smoker alcohol intake frequency: holidays/special occasions only Substance Use Type: marijuana Exam Narrative Exam Narrative: GENERAL: [40] year old patient appears stated age. Well- nourished, well-developed patient, in mild distress. HEAD: Atraumatic. Normocephalic. No obvious injury but tenderness to palpation on his occiput, no abrasion, contusion EYES: Pupils equal round and reactive. Extraocular motions intact. No scleral icterus. No injection or drainage. ENT: Nose without bleeding, purulent drainage. Throat without erythema, tonsillar hypertrophy or exudate. Airway patent. NECK: Trachea midline. Mild midline tenderness no crepitance or step-off, no obvious worsening with axial load CARDIOVASCULAR: Regular rate and rhythm without murmurs, gallops, or rubs. RESPIRATORY: Clear to auscultation. Breath sounds equal bilaterally. No wheezes, rales, or rhonchi. GASTROINTESTINAL: Abdomen soft, non-tender, nondistended. EXTREMITIES: No edema or joint tenderness. BACK: Nontender without deformity or crepitance. No flank tenderness. NEURO: AOx3. SKIN: No rash or erythema of visible areas Initial Vital Signs Initial Vital Signs: Vital Signs Temperature 98.1 F 12/10/20 15:40 Pulse Rate 94 H 12/10/20 15:40 Respiratory Rate 16 12/10/20 15:40 Blood Pressure 227/118 H 12/10/20 15:40 Pulse Oximetry 96 12/10/20 15:40 Scores GCS [place] coma scale eye opening: Spontaneous [place] coma scale verbal response: Orientated Junior coma scale motor response: Obey commands Junior coma scale total score: 15 Course Orders Ordered: ED Orders 12/10/20 15:51 CT cervical spine wo con Stat CT head/brain wo con Stat XR shoulder RT min 2V Stat Vital Signs Vital signs: Vital Signs - 8 hr 12/10/20 15:40 Temperature 98.1 F Pulse Rate 94 H Respiratory Rate 16 Blood Pressure 227/118 H Pulse Oximetry 96 MDM - Fall Imaging Data CT scan - head: Radiologist's Impression: [address] [id number] Scan ReportSigned Patient: Tushar Herron AMR#: [id number]: 1980Acct:[id number]/Sex: 40 / MDate of Service: 12/10/20Loc: EDAccession Number: [id number] Procedure: CT head/brain wo con Ordering Provider: Axel Colorado D.O. PROCEDURE: CT HEAD/BRAIN WO CON INDICATIONS: fell down 1.5 flight stairs,mod trauma TECHNIQUE: Noncontrast 4.5 mm thick angled axial sections acquired from the foramen magnum to the vertex, with coronal and sagittal reformats. For radiation dose reduction, the following was used: automated exposure control, adjustment of mA and/or kV according to patient size. COMPARISON: [facility], CT, CT HEAD/BRAIN WO CON, 03/03/2020, 16:37. [facility], CT, CT HEAD/BRAIN WO CON, 09/10/2019, 9:04. FINDINGS: Image quality: Excellent. CSF spaces: Basal cisterns are patent. No extra-axial fluid collections. Ventricles are normal in size and shape. Brain: No midline shift. No intracranial masses or hemorrhage. Hanna-white matter interface is normal. Skull and face: Calvarium and visualized facial bones are intact, without suspicious lesions. Sinuses: Visualized sinuses and mastoids are clear. IMPRESSION: CT head without acute intracranial abnormalities. No acute calvarial fractures. Dictated by: Johnnie De Jesus M.D. on 12/10/2020 at 15:29 Approved by: Johnnie De Jesus M.D. on 12/10/2020 at 15:32 CT - cervical spine: Radiologist's Impression: [address] [id number] Scan ReportSigned Patient: Tushar Herron AMR#: [id number]: 1980Acct:[id number]/Sex: 40 / MDate of Service: 12/10/20Loc: EDAccession Number: [id number] Procedure: CT cervical spine wo con Ordering Provider: Axel Colorado D.O. PROCEDURE: CT CERVICAL SPINE WO CON INDICATIONS: fell down 1.5 flight stairs,mod trauma TECHNIQUE: Noncontrast 3 mm thick sections acquired from the skull base to the T4 level. Sagittal and coronal reformats were then constructed. For radiation dose reduction, the following was used: automated exposure control, adjustment of mA and/or kV according to patient size. COMPARISON: [facility], CT, CT CERVICAL SPINE WO CON, 03/03/2020, 16:37. [facility], CT, CT CERVICAL SPINE WO CON, 09/10/2019, 9:04. FINDINGS: Image quality: Excellent. Bones: No acute fractures or dislocations. No acute compression fractures of the vertebral bodies. Craniocervical junction is intact. C1-C2 relationship is preserved. Visualized superior ribs are intact. Straightening of cervical lordosis which may be due to patient positioning and/or concurrent muscle spasms. Multilevel cervical spondylosis is again noted, most severe at C6-7. There is disc space loss, degenerative endplate changes and endplate osteophyte formation at this level. Soft tissues: Prevertebral soft tissues are normal in thickness. No paravertebral hematomas. No apical pneumothoraces. IMPRESSION: 1. CT cervical spine without acute fracture or dislocation. 2. Mild straightening of normal cervical lordosis likely related to positioning and/or concurrent muscle spasms. 3. Multilevel cervical spondylosis most severe at C6-7. Dictated by: Johnnie De Jesus M.D. on 12/10/2020 at 15:33 Approved by: Johnnie De Jesus M.D. on 12/10/2020 at 15:39 Extremity x-ray #1: Radiologist's Impression: [facility] [place] [id number] ReportSigned Patient: Tushar Herron AMR#: [id number]: 1980Acct:[id number]/Sex: 40 / MDate of Service: 12/10/20Loc: EDAccession Number: [id number] Procedure: XR shoulder RT min 2V Ordering Provider: Axel Colorado D.O. PROCEDURE: XR SHOULDER RT MIN 2V INDICATIONS: fell down 1.5 flight stairs,mod trauma TECHNIQUE: 3 views of the shoulder were acquired. COMPARISON: [facility], CR, XR SHOULDER LT MIN 2V, 03/03/2020, 17:39. FINDINGS: Bones: There is a linear lucency near the distal right clavicle with possible cortical irregularity/step-off. There is overlying soft tissue swelling. This may represent a subtle nondisplaced fracture. Coracoclavicular and acromioclavicular intervals are maintained. Remainder of the visualized osseous structures appear intact. No suspicious bony lesions. Visualized ribs appear intact. Soft tissues: No suspicious soft tissue calcifications. IMPRESSION: Possible nondisplaced distal right clavicle fracture. The coracoclavicular and acromioclavicular intervals are maintained. Recommend correlating with physical examination for point tenderness over the acromioclavicular joint and distal clavicle. Dictated by: Johnnie De Jesus M.D. on 12/10/2020 at 15:26 Approved by: Johnnie De Jesus M.D. on 12/10/2020 at 15:29 MDM Narrative Medical decision making narrative: Patient ambulates to the department without any difficulty. No significant findings on exam or imaging. Return precautions given and questions answered to his apparent satisfaction Discharge Plan Departure Patient Disposition: Home Clinical Impression: Muscle spasms of neck Concussion Qualifiers: Encounter type: initial encounter Loss of consciousness presence/duration: without LOC Qualified Code(s): S06.0X0A - Concussion without loss of consciousness, initial encounter Fx clavicle shaft-closed Qualifiers: Encounter type: initial encounter Fracture alignment: nondisplaced Laterality: right Qualified Code(s): S42.024A - Nondisplaced fracture of shaft of right clavicle, initial encounter for closed fracture HTN (hypertension) Qualifiers: Hypertension type: essential hypertension Qualified Code(s): I10 - Essential (primary) hypertension Instructions: How to Prevent Falls Activity Restrictions/Additional Instructions: *You have been diagnosed with [mild concussion as a consequence of her fall but CT scan demonstrates no significant findings under head or neck imaging. There is, perhaps a small crack in your right clavicle which we discussed.] *What to do: *Take medications as directed *Follow up with your primary care provider in 2-3 days, call for an appointment. Let them know you were seen in the Emergency Department and that we ask that you be seen in follow up * You have a slight concussion and will likely have a mild headache and some nausea for a few days. Avoiding highly stimulating activities and even TV or computers may be helpful in minimizing your symptoms. Avoid activities that will put you at risk for another head injury for at least a week. You can take tylenol or motrin for headache or the prescription provided for nausea/vomiting. Return for worsening or persistent symptoms *Return to ER if you should have any new, worsening or concerning symptoms Prescriptions: New ondansetron 4 mg tablet,disintegrating 4 mg PO TID-QID PRN (Reason: nausea and vomiting) Qty: 10 RF: 0 atenolol 50 mg tablet 50 mg PO DAILY Qty: 30 RF: 0 Referrals: [facility] [Outside] Stand Alone Forms: Work Release Note
--- NOTE | 2020-12-10 16:48 | PC.NURSE ---
c-collar removed by Dr Colorado
[2020-12-10 17:10] VITALS: BP 191/105; PULSE 87; O2SAT 98
== END 2020-12-10 17:10 | disposition home or self-care (01) ==
PROVIDERS: Emergency Provider Emergency Medicine
DX: S06.0X0A Concussion without loss of consciousness, initial encounter (principal); S42.024A Nondisplaced fracture of shaft of right clavicle, initial encounter for closed fracture; M62.838 Other muscle spasm; I10 Essential (primary) hypertension; R42 Dizziness and giddiness; W10.8XXA Fall (on) (from) other stairs and steps, initial encounter
CPT/HCPCS: 70450; 72125; 73030; 99283; 99284

== ENCOUNTER 2022-01-22 11:21 | Emergency (ER) | payer SELFPAY ==
[2022-01-22] VITALS (10 sets, daily range): BP systolic 165–179; BP diastolic 77–100; PULSE 73–88; RESP 18–20; TEMP 37.2; O2SAT 96–97; BMI 42.2
[2022-01-22] MEDS: METOCLOPRAMIDE 10 MG/2 ML INJ IV (12:30)
[2022-01-22] MEDS: diphenhydrAMINE 50 MG/ML VIAL 25 MG IV (12:30)
[2022-01-22] MEDS: atenoloL 50 MG TABLET PO (12:30)
[2022-01-22] MEDS: KETOROLAC 30 MG/ML VIAL 15 MG IV (12:31)
[2022-01-22] MEDS: ACETAMINOPHEN 325 MG TABLET 975 MG PO (12:31)
[2022-01-22] MEDS: DEXAMETHASONE 10 MG/ML VIAL IV (12:31)
[2022-01-22] MEDS: SODIUM CHLORIDE 0.9% 1,000 ML 1000 ML IV (12:32)
--- NOTE | 2022-01-22 12:44 | ED_ITS ---
HPI - Headache <LORENA Matson - Last Filed: 01/22/22 14:51> General Chief Complaint: Headache Stated Complaint: head hurts Time Seen by Provider: 01/22/22 12:02 Mode of arrival: Family Vehicle History of Present Illness HPI Narrative: This is a 41-year-old male with history of uncontrolled hypertension, states he is out of atenolol currently, who also has a history of migraines and states he had a headache which came on last night, he took Tylenol approximately 12 hours ago and states that today he still has a headache. He denies any other symptoms other than photophobia. Patient states that he is COVID vaccinated x2, denies any sick COVID contacts, denies other contacts. He denies any nausea vomiting, weakness, fever, back pain, or other symptom at this time. He states that he needs a primary care provider, he needs a refill on his atenolol because taking it, this is likely why is hypertensive in triage. Patient denies any recent trauma, denies any vision changes other than sensitivity to light. Patient states that his headache came on gradually, it is similar to his previous headaches, started behind his eyes yesterday. Related Data Previous Rx's Medication Instructions Recorded atenolol 50 mg tablet 50 mg PO DAILY #30 tab 12/10/20 ondansetron 4 mg disintegrating 4 mg PO TID-QID PRN #10 tab 12/10/20 tablet atenolol 50 mg tablet 50 mg PO DAILY 90 Days #90 tab 01/22/22 Allergies Allergy/AdvReac Type Severity Reaction Status Date / Time Penicillins Allergy Intermediate Verified 01/22/22 11:52 Review of Systems <LORENA Matson - Last Filed: 01/22/22 14:51> Review of Systems Narrative: General: denies fever, chills Head/Neck: Endorses headache, denies any neck pain Eyes: denies visual changes, eye pain Cardio: denies chest pain, palpitations Respiratory: denies shortness of breath, cough GI: denies abdominal pain, nausea, vomiting, or diarrhea : denies dysuria, hematuria or flank pain MSK: denies new joint pain, muscle weakness or swelling Skin: denies rash, itching or wound Neuro: denies numbness, tingling, dizziness Patient History <LORENA Matson - Last Filed: 01/22/22 14:51> Medical History (Updated 01/22/22 @ 13:08 by LORENA Matson) Hypertension Surgical History No pertinent past surgical history Social History Smoking Status: Current every day smoker Smoking Status: Current every day smoker tobacco type: cigarettes alcohol intake frequency: holidays/special occasions only Substance Use Type: marijuana Exam <LORENA Matson - Last Filed: 01/22/22 14:51> Narrative Exam Narrative: Independently reviewed vitals signs and nursing notes. General: cooperative, comfortable, in no acute distress, well groomed, shielding his eyes from light Head: atraumatic, symmetrical facial expressions, no swelling Neck: supple Eyes: pupils equal round and reactive, EOMI, conjunctiva normal Nose: nares patent, no rhinorrhea Mouth/Throat: moist mucus membranes Cardiovascular: regular rate and rhythm, no peripheral edema, warm extremities Respiratory: normal effort, able to speak in complete sentences, no audible wheezing, stridor, or rales. No retractions or tachypnea. GI: abdomen soft, nontender to palpation, nondistended, no masses, no exquisite tenderness with exam, without guarding or rebound. MSK: moves all extremities, neurovascularly intact, no weakness, normal tone Skin: brisk capillary refill, no rash, no erythema Neuro: normal speech and cognition, A&O x3 Psych: mental status is grossly normal, congruent mood, normal affect, pleasant and cooperative Initial Vital Signs Initial Vital Signs: Vital Signs Pulse Rate 88 01/22/22 11:43 Pulse Oximetry 96 01/22/22 11:43 <Curtis Smith DO - Last Filed: 01/22/22 17:56> Initial Vital Signs Initial Vital Signs: Vital Signs Pulse Rate 88 01/22/22 11:43 Pulse Oximetry 96 01/22/22 11:43 Course <LORENA Matson - Last Filed: 01/22/22 14:51> Orders Ordered: Discontinued Medications Acetaminophen (Acetaminophen 325 Mg Tablet) 975 mg PO NOW ONE Stop: 01/22/22 12:07 Last Admin: 01/22/22 12:31 Dose: 975 mg Documented by: JENNY Atenolol (Atenolol 50 Mg Tablet) 50 mg PO NOW ONE Stop: 01/22/22 12:13 Last Admin: 01/22/22 12:30 Dose: 50 mg Documented by: JENNY Dexamethasone (Dexamethasone 10 Mg/Ml Vial) 10 mg IV NOW ONE Stop: 01/22/22 12:07 Last Admin: 01/22/22 12:31 Dose: 10 mg Documented by: JENNY Diphenhydramine HCl (Diphenhydramine 50 Mg/Ml Vial) 25 mg IV NOW ONE Stop: 01/22/22 12:07 Last Admin: 01/22/22 12:30 Dose: 25 mg Documented by: JENNY Sodium Chloride (Normal Saline 0.9%) 1,000 mls @ 1,000 mls/hr IV BOLUS ONE Stop: 01/22/22 13:05 Last Infusion: 01/22/22 13:28 Dose: 0 mls/hr Documented by: Admin: 01/22/22 12:32 Dose: 1,000 mls/hr Documented by: JENNY Ketorolac Tromethamine (Ketorolac 30 Mg/Ml Vial) 15 mg IV NOW ONE Stop: 01/22/22 12:07 Last Admin: 01/22/22 12:31 Dose: 15 mg Documented by: JENNY Metoclopramide HCl (Metoclopramide 10 Mg/2 Ml Inj) 10 mg IV NOW ONE Stop: 01/22/22 12:07 Last Admin: 01/22/22 12:30 Dose: 10 mg Documented by: JENNY Vital Signs Vital signs: Vital Signs - 8 hr 01/22/22 11:43 01/22/22 11:44 01/22/22 11:46 Temperature 98.9 F Pulse Rate 88 84 83 Respiratory Rate 18 20 Blood Pressure 177/100 H 177/100 H Pulse Oximetry 96 97 96 01/22/22 11:59 01/22/22 12:00 01/22/22 12:30 Temperature Pulse Rate 78 77 74 Respiratory Rate Blood Pressure 179/88 H Pulse Oximetry 96 97 96 01/22/22 12:31 01/22/22 13:00 01/22/22 13:01 Temperature Pulse Rate 79 80 73 Respiratory Rate Blood Pressure 173/88 H 179/86 H Pulse Oximetry 96 97 96 01/22/22 13:11 Temperature Pulse Rate 78 Respiratory Rate Blood Pressure 165/77 H Pulse Oximetry 97 <Curtis Smith, DO - Last Filed: 01/22/22 17:56> Orders Ordered: Discontinued Medications Acetaminophen (Acetaminophen 325 Mg Tablet) 975 mg PO NOW ONE Stop: 01/22/22 12:07 Last Admin: 01/22/22 12:31 Dose: 975 mg Documented by: JENNY Atenolol (Atenolol 50 Mg Tablet) 50 mg PO NOW ONE Stop: 01/22/22 12:13 Last Admin: 01/22/22 12:30 Dose: 50 mg Documented by: JENNY Dexamethasone (Dexamethasone 10 Mg/Ml Vial) 10 mg IV NOW ONE Stop: 01/22/22 12:07 Last Admin: 01/22/22 12:31 Dose: 10 mg Documented by: JENNY Diphenhydramine HCl (Diphenhydramine 50 Mg/Ml Vial) 25 mg IV NOW ONE Stop: 01/22/22 12:07 Last Admin: 01/22/22 12:30 Dose: 25 mg Documented by: JENNY Sodium Chloride (Normal Saline 0.9%) 1,000 mls @ 1,000 mls/hr IV BOLUS ONE Stop: 01/22/22 13:05 Last Infusion: 01/22/22 13:28 Dose: 0 mls/hr Documented by: Admin: 01/22/22 12:32 Dose: 1,000 mls/hr Documented by: JENNY Ketorolac Tromethamine (Ketorolac 30 Mg/Ml Vial) 15 mg IV NOW ONE Stop: 01/22/22 12:07 Last Admin: 01/22/22 12:31 Dose: 15 mg Documented by: JENNY Metoclopramide HCl (Metoclopramide 10 Mg/2 Ml Inj) 10 mg IV NOW ONE Stop: 01/22/22 12:07 Last Admin: 01/22/22 12:30 Dose: 10 mg Documented by: JENNY Vital Signs Vital signs: Vital Signs - 8 hr 01/22/22 11:43 01/22/22 11:44 01/22/22 11:46 Temperature 98.9 F Pulse Rate 88 84 83 Respiratory Rate 18 20 Blood Pressure 177/100 H 177/100 H Pulse Oximetry 96 97 96 01/22/22 11:59 01/22/22 12:00 01/22/22 12:30 Temperature Pulse Rate 78 77 74 Respiratory Rate Blood Pressure 179/88 H Pulse Oximetry 96 97 96 01/22/22 12:31 01/22/22 13:00 01/22/22 13:01 Temperature Pulse Rate 79 80 73 Respiratory Rate Blood Pressure 173/88 H 179/86 H Pulse Oximetry 96 97 96 01/22/22 13:11 Temperature Pulse Rate 78 Respiratory Rate Blood Pressure 165/77 H Pulse Oximetry 97 [facility] - Headache <JoannLORENA Marques - Last Filed: 01/22/22 14:51> [facility] Narrative Medical decision making narrative: This is a 41-year-old male who presents to the emergency department with history of migraines, endorses a migraine which started behind his eyes last evening, states he took Tylenol 12 hours ago, and has not improved. He denies any other symptoms except for photophobia. Patient was given a migraine cocktail in the emergency department, this included 1 L of normal saline, dexamethasone, Reglan, Toradol, Tylenol and he had complete resolution of his headache. Patient states that he feels much better, he endorses running out of his atenolol because he needs a primary care provider. He was given phone number to establish care with a new PCP, encouraged to contact his insurance and find out who he has covered with and start bear, he was given a three month supply of atenolol, he was given one dose in the emergency department with mild to moderate reduction in his systolic blood pressure down to 165 from the 180s. Patient denied any symptoms at time of discharge, understands the hydrated, to return to the emergency department for any new or worsening symptoms. Headache considerations include, but not limited to: Subarachnoid hemorrhage, but unlikely as patient denies sudden onset of pain, not worst of life, or neck pain Meningitis considered, but thought unlikely given lack of Brudzinski's, Kernig's sign, altered mental status or fever Giant cell arteritis considered, but thought unlikely given lack of unilateral findings, pain in voodoo, vision change HTN Emergency considered, but thought unlikely given normal vitals Other serious diagnoses considered unlikely given lack of red flag findings such as sudden onset, increasing frequency, immunocompromise, systemic signs (fever, chills, stiff neck, or rash), focal neurologic findings, trauma, blood thinners, etc. Discharge Plan Departure Patient Disposition: Home Clinical Impression: Migraine Qualifiers: Migraine type: without aura Status migrainosus presence: without status migrainosus Intractability: not intractable Qualified Code(s): G43.009 - Migraine without aura, not intractable, without status migrainosus Instructions: DI for Migraine Activity Restrictions/Additional Instructions: *You have been diagnosed with a migraine. I think it is likely that your elevated blood pressure is a component your migraine. Your blood pressure came down nicely on your medication, please continue to stay hydrated, practice healthy diet habits, avoid smoking, and please call the number listed below or check on your insurance to find a primary care provider near you. Please take your atenolol each day, I gave you three months worth, this should give you enou gh time to find in primary care provider and follow-up. Thank you for trusting us with your care. *What to do: *Please continue to take your regular medications as directed. [x ] New medication prescriptions sent to your pharmacy: [ [facility]] [ ] New medication written as a paper prescription [ ] No new medications given *Please follow up with your primary care provider in 2-3 days, call for an appointment. Let them know you were seen in the Emergency Department and that we asked that you be seen for follow-up. We will electronically transmit a record of today's note if your PCP is in our system *If you do not have a primary care provider please contact [phone] to establish care with one of the [facility] primary care providers. *Return to Emergency Department if you should have any new, worsening or concerning symptoms, such as [fever greater than 101F, chills, worsening pain, persistent vomiting or other bothersome symptoms] Prescriptions: New atenolol 50 mg tablet 50 mg PO DAILY 90 Days Qty: 90 0RF No Action ondansetron 4 mg tablet,disintegrating 4 mg PO TID-QID PRN (Reason: nausea and vomiting) Qty: 10 0RF atenolol 50 mg tablet 50 mg PO DAILY Qty: 30 0RF Referrals: [facility] [Provider Group] Stand Alone Forms: Work Release Note Visit Report Forms: Patient Portal/API <Curtis Smith, DO - Last Filed: 01/22/22 17:56> Cosign ED Attending Cosignature Attestation: Dr Smith Co-Sign Statement: I was available for consultation during this pat ient's emergency department visit. This chart is signed by myself for administrative purposes only. I did not have direct contact with this patient during this visit. They were seen independently by the APC.
== END 2022-01-22 13:29 | disposition home or self-care (01) ==
PROVIDERS: Emergency Provider Nurse Practitioner Critical Care Medicine
DX: G43.009 Migraine without aura, not intractable, without status migrainosus (principal)
CPT/HCPCS: 36415; 96361; 96374; 96375; 99284; J1100; J1200; J1885; J2765

== ENCOUNTER 2022-06-07 10:00 | Emergency (ER) | payer SELFPAY ==
[2022-06-07] VITALS (16 sets, daily range): BP systolic 155–196; BP diastolic 81–95; PULSE 88–119; RESP 14–29; TEMP 37.2–37.8; O2SAT 94–98; BMI 39.5
--- NOTE | 2022-06-07 10:11 | DI.RAD.S_ITS ---
PROCEDURE: XR CHEST 1V INDICATIONS: suspected sepsis TECHNIQUE: One view of the chest was acquired. COMPARISON: [facility], CR, XR CHEST 2V, 09/10/2019, 9:27. FINDINGS: Surgical changes and devices: None. Lungs and pleura: There is a mild appearance of interstitial prominence. Mediastinum: Mediastinal contours appear normal. Heart size is enlarged. Bones and chest wall: No suspicious bony lesions. Overlying soft tissues appear unremarkable. IMPRESSION: Mild interstitial prominence. This could represent edema versus areas of pneumonia. Dictated by: Shweta Lui M.D. on 06/07/2022 at 10:45 Approved by: Shweta Lui M.D. on 06/07/2022 at 10:45
[2022-06-07] MEDS: SODIUM CHLORIDE 0.9% 1,000 ML 1000 ML IV ×2 (10:36→11:13)
[2022-06-07] MEDS: ACETAMINOPHEN 325 MG TABLET 650 MG PO (10:36)
--- NOTE | 2022-06-07 10:41 | ED.SOB ---
HPI - SOB/Dyspnea General Chief Complaint: Shortness of Breath/Dyspnea Stated Complaint: leg pain,difficulty breathing & dizziness Time Seen by Provider: 06/07/22 10:36 Source: patient Mode of arrival: Ambulatory Limitations: no limitations History of Present Illness HPI Narrative: Tushar Andujar is a 42-year-old man with shortness of breath and leg pain. Symptoms started last night. He has diffuse myalgias in his lower extremities, sore throat, congestion and cough. He has a history of hypertension but no other chronic health conditions. He does smoke cigarettes daily he denies any other substance use. He is not vaccinated for COVID-19. No vomiting, no diarrhea. No fevers far as he is aware. Related Data Previous Rx's Medication Instructions Recorded atenolol 50 mg tablet 50 mg PO DAILY #30 tabs 12/10/20 ondansetron 4 mg disintegrating 4 mg PO TID-QID PRN nausea and 12/10/20 tablet vomiting #10 tabs azithromycin 250 mg tablet 250 mg PO DAILY 5 days #6 tabs 06/07/22 (Zithromax Z-Christian) Allergies Allergy/AdvReac Type Severity Reaction Status Date / Time Penicillins Allergy Intermediate Verified 06/07/22 10:09 Review of Systems Review of Systems Narrative: Complete review of systems is negative other than as noted above. Patient History Medical History (Updated 06/07/22 @ 13:19 by Kristopher Merchant MD) Hypertension Surgical History No pertinent past surgical history Social History Smoking Status: Current every day smoker Smoking Status: Current every day smoker tobacco type: cigarettes alcohol intake frequency: holidays/special occasions only Substance Use Type: marijuana Exam Narrative Exam Narrative: GENERAL: Alert, cooperative and in no distress. HEAD: Atraumatic. Normocephalic. EYES: Sclera are clear without icterus. Extraocular movements are full. ENT: No rhinorrhea. NECK: Supple. Full range of motion. CARDIOVASCULAR: Normal rate and rhythm without murmur gallop or rub. RESPIRATORY: Clear to auscultation. Breath sounds equal bilaterally. No wheezes, rales, or rhonchi. GASTROINTESTINAL: Abdomen soft, non-tender, nondistended. EXTREMITIES: No edema, full range of motion. No obvious trauma. No pain to palpation of the lower extremities BACK: Normal inspection, no CVA tenderness. NEURO: Nonfocal examination, normal speech, normal gait. SKIN: No rash or erythema of visible areas PSYCH: Normally oriented. Normal range of affect. Appropriate behavior Initial Vital Signs Initial Vital Signs: Vital Signs Temperature 100.0 F H 06/07/22 10:04 Pulse Rate 119 H 06/07/22 10:04 Respiratory Rate 26 H 06/07/22 10:04 Blood Pressure 180/95 H 06/07/22 10:04 Pulse Oximetry 98 06/07/22 10:04 Oxygen Delivery Method 06/07/22 10:04 Course Orders Ordered: ED Orders 06/07/22 10:05 COVID19 -Nasal RAPID/Pre-Proc Stat 06/07/22 10:11 XR chest 1V Stat RT Consult Eval and Treat NOW 06/07/22 10:15 Complete Blood Count AUTO DIFF Stat Comprehensive Metabolic Panel Stat Lactate (Lactic Acid) Stat Lipase Stat Partial Thromboplastin Time Stat Procalcitonin Stat Prothrombin Time INR Stat Troponin I Stat 06/07/22 10:21 EKG-12 Lead Stat 06/07/22 11:45 Blood Culture Stat Discontinued Medications Acetaminophen (Acetaminophen 325 Mg Tablet) 650 mg PO NOW ONE Stop: 06/07/22 10:34 Last Admin: 06/07/22 10:36 Dose: 650 mg Documented By: ERNST Sodium Chloride (Normal Saline 0.9%) 1,000 mls @ 1,000 mls/hr IV BOLUS ONE Stop: 06/07/22 11:10 Last Infusion: 06/07/22 12:08 Dose: 0 mls/hr Documented By: ANA PAULA Admin: 06/07/22 10:36 Dose: 1,000 mls/hr Documented By: ERNST Sodium Chloride (Normal Saline 0.9%) 1,000 mls @ 1,000 mls/hr IV BOLUS ONE Stop: 06/07/22 11:42 Last Admin: 06/07/22 11:13 Dose: 1,000 mls/hr Documented By: ANA PAULA Ketorolac Tromethamine (Ketorolac 30 Mg/Ml Vial) 15 mg IV NOW ONE Stop: 06/07/22 10:44 Last Admin: 06/07/22 11:13 Dose: 15 mg Documented By: ANA PAULA Vital Signs Vital signs: Vital Signs - 8 hr 06/07/22 10:04 06/07/22 11:25 06/07/22 10:07 Temperature 100.0 F H 99.2 F Pulse Rate 119 H 115 H Respiratory Rate 26 H Blood Pressure 180/95 H Pulse Oximetry 98 97 Oxygen Delivery Method Room Air 06/07/22 10:08 06/07/22 10:08 06/07/22 10:30 Temperature Pulse Rate 118 H 111 H Respiratory Rate 26 H Blood Pressure 173/81 H Pulse Oximetry 94 98 Oxygen Delivery Method 06/07/22 10:31 06/07/22 10:31 06/07/22 11:00 Temperature Pulse Rate 112 H 109 H Respiratory Rate 29 H 28 H Blood Pressure 196/88 H Pulse Oximetry 96 97 Oxygen Delivery Method 06/07/22 11:18 06/07/22 11:18 06/07/22 12:43 Temperature 98.9 F Pulse Rate 114 H Respiratory Rate 28 H Blood Pressure 176/83 H Pulse Oximetry 98 Oxygen Delivery Method Room Air 06/07/22 11:30 06/07/22 11:35 06/07/22 11:35 Temperature Pulse Rate 111 H 112 H Respiratory Rate 25 H 21 Blood Pressure 164/90 H Pulse Oximetry 95 96 Oxygen Delivery Method 06/07/22 12:00 06/07/22 12:30 06/07/22 12:43 Temperature Pulse Rate 108 H 106 H 95 H Respiratory Rate 19 Blood Pressure Pulse Oximetry 96 Oxygen Delivery Method Room Air 06/07/22 12:43 Temperature Pulse Rate 88 Respiratory Rate Blood Pressure 155/89 H Pulse Oximetry Oxygen Delivery Method MDM - SOB/Dyspnea Lab Data Result diagrams: 06/07/22 10:15 06/07/22 10:15 Labs: Lab Results 06/07/22 06/07/22 06/07/22 Range/Units 10:05 10:15 10:15 WBC Cancelled RBC Cancelled Hgb Cancelled Hct Cancelled MCV Cancelled MCH Cancelled MCHC Cancelled RDW Cancelled Plt Count Cancelled Neut % (Auto) Cancelled Lymph % (Auto) Cancelled [place] % (Auto) Cancelled Eos % (Auto) Cancelled Baso % (Auto) Cancelled Neut # (Auto) Cancelled Lymph # (Auto) Cancelled [place] # (Auto) Cancelled Eos # (Auto) Cancelled Baso # (Auto) Cancelled PT 12.7 (10.1-12.7) SECONDS INR 1.1 (0.9-1.3) APTT 28 (26-36) SECONDS Sodium (137-145) mmol/L Potassium (3.4-5.1) mmol/L Chloride (98-107) mmol/L Carbon Dioxide (22-32) mmol/L BUN (9-20) mg/dL Creatinine (0.66-1.25) mg/dL Estimated GFR (>60) mL/min BUN/Creatinine Ratio (6-22) Glucose (70-100) mg/dL Lactate (0.7-2.1) mmol/L Calcium (8.4-10.2) mg/dL Total Bilirubin (0.2-1.3) mg/dL AST (17-59) IU/L ALT (<50) IU/L Alkaline Phosphatase (38-126) U/L Troponin I (0.01-0.034) ng/mL Total Protein (6.3-8.2) g/dL Albumin (3.5-5.0) g/dL Globulin (1.7-4.1) g/dL Albumin/Globulin Ratio (1.0-2.8) Lipase (23-300) U/L Procalcitonin (<0.5) ng/mL SARS-CoV-2 (PCR) Negative (Negative) 06/07/22 06/07/22 06/07/22 Range/Units 10:15 10:15 10:15 WBC 22.3 H RBC 5.03 Hgb 14.5 Hct 43.5 MCV 86.4 MCH 28.9 MCHC 33.4 RDW 13.5 Plt Count 283 Neut % (Auto) 89.6 H Lymph % (Auto) 6.2 L [place] % (Auto) 3.6 Eos % (Auto) 0.3 L Baso % (Auto) 0.3 Neut # (Auto) 01734 H Lymph # (Auto) 1400 [place] # (Auto) 800 Eos # (Auto) 100 Baso # (Auto) 100 PT (10.1-12.7) SECONDS INR (0.9-1.3) APTT (26-36) SECONDS Sodium 134 L (137-145) mmol/L Potassium 3.9 (3.4-5.1) mmol/L Chloride 98 (98-107) mmol/L Carbon Dioxide 22 (22-32) mmol/L BUN 9 (9-20) mg/dL Creatinine 0.68 (0.66-1.25) mg/dL Estimated GFR > 60 (>60) mL/min BUN/Creatinine Ratio 13.2 (6-22) Glucose 209 H (70-100) mg/dL Lactate 2.4 H (0.7-2.1) mmol/L Calcium 8.2 L (8.4-10.2) mg/dL Total Bilirubin 0.7 (0.2-1.3) mg/dL AST 25 (17-59) IU/L ALT 31 (<50) IU/L Alkaline Phosphatase 113 (38-126) U/L Troponin I (0.01-0.034) ng/mL Total Protein 7.4 (6.3-8.2) g/dL Albumin 4.0 (3.5-5.0) g/dL Globulin 3.4 (1.7-4.1) g/dL Albumin/Globulin Ratio 1.2 (1.0-2.8) Lipase 30 (23-300) U/L Procalcitonin 0.08 (<0.5) ng/mL SARS-CoV-2 (PCR) (Negative) 06/07/22 Range/Units 10:15 WBC RBC Hgb Hct MCV MCH MCHC RDW Plt Count Neut % (Auto) Lymph % (Auto) [place] % (Auto) Eos % (Auto) Baso % (Auto) Neut # (Auto) Lymph # (Auto) [place] # (Auto) Eos # (Auto) Baso # (Auto) PT (10.1-12.7) SECONDS INR (0.9-1.3) APTT (26-36) SECONDS Sodium (137-145) mmol/L Potassium (3.4-5.1) mmol/L Chloride (98-107) mmol/L Carbon Dioxide (22-32) mmol/L BUN (9-20) mg/dL Creatinine (0.66-1.25) mg/dL Estimated GFR (>60) mL/min BUN/Creatinine Ratio (6-22) Glucose (70-100) mg/dL Lactate (0.7-2.1) mmol/L Calcium (8.4-10.2) mg/dL Total Bilirubin (0.2-1.3) mg/dL AST (17-59) IU/L ALT (<50) IU/L Alkaline Phosphatase (38-126) U/L Troponin I < 0.012 (0.01-0.034) ng/mL Total Protein (6.3-8.2) g/dL Albumin (3.5-5.0) g/dL Globulin (1.7-4.1) g/dL Albumin/Globulin Ratio (1.0-2.8) Lipase (23-300) U/L Procalcitonin (<0.5) ng/mL SARS-CoV-2 (PCR) (Negative) ECG Data Interpretation: ECG obtained at 10:21 a.m. shows a sinus tachycardia, nonspecific STT wave changes MDM Narrative Medical decision making narrative: This patient has non COVID community-acquired pneumonia. He has dramatic elevation in his white blood cell count and a modest elevation in his lactate. However, has demonstrated his ability to mount a dramatic leukocytosis previously and his symptomatology is dramatically improved at this point. Says he just wants to go eat a cheeseburger and go home. He is in no respiratory distress at all and all of his symptoms of leg pain and sweats have resolved with modest intervention here with intravenous fluids and Tylenol. I think it is safe to discharge him home with azithromycin for community-acquired pneumonia. Careful return precautions given. Discharge Plan Departure Patient Disposition: Home Clinical Impression: Community acquired pneumonia Instructions: DI for Pneumonia -- Adult Activity Restrictions/Additional Instructions: You have pneumonia. You do not have COVID-19. Take the antibiotic as instructed. You should start to feel better over the next few days. In the meantime, make sure you are drinking lots of fluid every day at least 3 L. Take Tylenol 1000 mg and ibuprofen 600 mg together every 6 hours. Return to the ER if you are getting much worse, otherwise follow-up with your doctor in about a week if not dramatically better. Prescriptions: New azithromycin [Zithromax Z-Christian] 250 mg tablet 250 mg PO DAILY 5 Days Qty: 6 0RF Rx Instructions: Take 2 pills today and then 1 tablet each day afterwards No Action ondansetron 4 mg tablet,disintegrating 4 mg PO TID-QID PRN (Reason: nausea and vomiting) Qty: 10 0RF atenolol 50 mg tablet 50 mg PO DAILY Qty: 30 0RF
[2022-06-07 10:45] LABS: Add Manual Diff / Slide Review NO; Basophils Absolute Auto 100 /uL (0-100); Basophils Percent Auto 0.3 % (0-2); Eosinophils Absolute Auto 100 /uL (0-450); Eosinophils Percent Auto 0.3 % (2-4); Hematocrit 43.5 % (41-53); Hemoglobin 14.5 g/dL (13.5-17.5); Lymphocytes Absolute Auto 1400 /uL (1100-4500); Lymphocytes Percent Auto 6.2 % (25-40); Mean Corpuscular HGB Conc 33.4 % (30-36); Mean Corpuscular Hemoglobin 28.9 PG (26-34); Mean Corpuscular Volume 86.4 fL (80-100); Monocytes Absolute Auto 800 /uL (0-900); Monocytes Percent Auto 3.6 % (3-14); Neutrophils Absolute Auto 20000 /uL (1500-7000); Neutrophils Percent Auto 89.6 % (50-75); Platelet Count 283 X10^3/uL (150-400); Red Blood Cell Count 5.03 X10^6/uL (4.5-5.9); Red Cell Distribution Width 13.5 % (11.6-14.8); White Blood Cell Count 22.3 X10^3/uL (4.5-11.0)
[2022-06-07 10:55] LABS: INR 1.1 (0.9-1.3); Prothrombin Time 12.7 SECONDS (10.1-12.7)
[2022-06-07 10:56] LABS: COVID19 -Nasal RAPID Negative (Negative)
[2022-06-07 10:58] LABS: PTT Partial Thromboplastin Tim 28 SECONDS (26-36)
[2022-06-07 11:00] LABS: Lactate (Lactic Acid) 2.4 mmol/L (0.7-2.1)
[2022-06-07 11:01] LABS: Alanine Aminotransferase 31 IU/L (<50); Albumin Globulin Ratio 1.2 (1.0-2.8); Alkaline Phosphatase 113 U/L (38-126); Aspartate Aminotransferase 25 IU/L (17-59); BUN Creatinine Ratio 13.2 (6-22); Bilirubin Total 0.7 mg/dL (0.2-1.3); Blood Urea Nitrogen 9 mg/dL (9-20); Calcium 8.2 mg/dL (8.4-10.2); Carbon Dioxide 22 mmol/L (22-32); Chloride 98 mmol/L (98-107); Estimated Glomerular Filt Rate > 60 mL/min (>60); Globulin 3.4 g/dL (1.7-4.1); Glucose 209 mg/dL (70-100); HEMOLYSIS < 15 (0-50); Lipase 30 U/L (23-300); Potassium 3.9 mmol/L (3.4-5.1); Sodium 134 mmol/L (137-145); Total Protein 7.4 g/dL (6.3-8.2)
[2022-06-07] MEDS: KETOROLAC 30 MG/ML VIAL 15 MG IV (11:13)
[2022-06-07 11:17] LABS: Procalcitonin 0.08 ng/mL (<0.5)
[2022-06-07 11:36] LABS: Troponin I < 0.012 ng/mL (0.01-0.034)
[2022-06-07 12:23] LABS: Reflexed Lactate in 2 Hours Y
[2022-06-07 13:44] LABS: Appearance Urine UA CLEAR; Bilirubin Urine UA NEGATIVE (NEGATIVE); Color Urine UA YELLOW; Glucose Urine UA NEGATIVE (Negative); Ketones Urine UA NEGATIVE (NEGATIVE); Leukocyte Esterase Urine UA 1+ (NEGATIVE); Nitrite Urine UA NEGATIVE (Negative); Occult Blood Urine UA TRACE-INTACT (Negative); Protein Urine UA NEGATIVE (Negative); Urobilinogen Urine UA 0.2 E.U./dL (0.2); pH Urine UA 7.5 (4.5-8.0)
[2022-06-07 13:54] LABS: Bacteria Urine Occasional (0-1); Culture Indicated Urine Specimen Cultured; RBC Urine 1-5/HPF (0-5/HPF); Squamous Epithelial Cell Urine 0-1 /HPF (0-5/HPF); WBC Urine 1-5/HPF (0-5/HPF)
== END 2022-06-07 13:39 | disposition home or self-care (01) ==
PROVIDERS: Emergency Provider Family Medicine Addiction Medicine
DX: J18.9 Pneumonia, unspecified organism (principal); Z20.822 Contact with and (suspected) exposure to COVID-19
CPT/HCPCS: 36415; 71045; 80053; 81001; 81003; 83605; 83690; 84145; 84484; 85025; 85610; 85730; 87040; 87086; 87635; 93005; 93010; 96361; 96374; 99284; C9803; J1885

== ENCOUNTER 2022-09-24 16:46 | Emergency (ER) | payer SELFPAY ==
[2022-09-24] VITALS (11 sets, daily range): BP systolic 147–254; BP diastolic 78–148; PULSE 71–103; RESP 18–22; TEMP 36.9; O2SAT 96–98; BMI 39.5
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
--- NOTE | 2022-09-24 17:01 | ED.HEATRA ---
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 He states that the dish rack full of dishes started to fall forward towards him and struck him in the bridge of his nose. He states that he saw stars afterwards and blackness but did not fall down or have a secondary injury. He denies vomiting, denies loss of consciousness and denies neck pain however he complains of nausea, difficulty concentrating, difficulty falling asleep, forming his thoughts and his words and also endorses having a headache. He has a history of hypertension, I saw this patient in January of 2022 and prescribed for him atenolol as he had run out of his from his primary provider for his tachycardia and hypertension history. He states that he is out of his atenolol again and has not taken it today. In triage his blood pressure is 204/148, blood pressure 103. He denies any vision changes or eye pain, denies any weakness or sensation changes. He denies any muscular pain, has full range of motion of his neck without deficit. Related Data Previous Rx's Medication Instructions Recorded atenolol 50 mg tablet 50 mg PO DAILY #30 tabs 12/10/20 ondansetron 4 mg disintegrating 4 mg PO TID-QID PRN nausea and 12/10/20 tablet vomiting #10 tabs metoprolol tartrate 50 mg tablet 50 mg PO BID #60 tabs 09/24/22 Allergies Allergy/AdvReac Type Severity Reaction Status Date / Time Penicillins Allergy Intermediate Verified 06/07/22 10:09 Review of Systems <LORENA Matson - Last Filed: 09/24/22 18:47> Review of Systems ROS Unobtainable: All systems reviewed & are unremarkable except as noted in HPI and below Patient History <LORENA Matson - Last Filed: 09/24/22 18:47> Medical History (Updated 09/24/22 @ 17:47 by LORENA Matson) Hypertension Surgical History No pertinent past surgical history Social History Smoking Status: Current every day smoker Smoking Status: Current every day smoker tobacco type: cigarettes alcohol intake frequency: holidays/special occasions only Substance Use Type: marijuana Exam <LORENA Matson - Last Filed: 09/24/22 18:47> Narrative Exam Narrative: Reviewed vitals signs and nursing notes. General: cooperative, comfortable, in no acute distress, well groomed HEENT: symmetrical facial expressions, moist mucous membranes, abrasion and contusion over bridge of nose, no tenderness over facial bones including maxillary, orbital, mandibular, and temporal regions. No mastoid tenderness bilaterally, no hemotympanum, no C-spine tenderness to palpation, no cervical spine range of motion deficit, PERRLA, EOMI Cardiovascular: Tachycardic rate and regular rhythm, S1-S2 without murmur no peripheral edema, warm extremities Respiratory: normal effort, able to speak in complete sentences, without wheezing, stridor, or abnormal breath sounds. No retractions or tachypnea. GI: abdomen soft, nontender to palpation, nondistended, without masses, rebound tenderness or exquisite tenderness with exam. MSK: moves all extremities, neurovascularly intact, no weakness, normal tone Skin: brisk capillary refill, without pallor or erythema Neuro: normal speech and cognition, A&O x3, ambulatory, clear speech, without focal neuro deficits Psych: mental status is grossly normal, congruent mood, normal affect, pleasant and cooperative Initial Vital Signs Initial Vital Signs: Vital Signs Pulse Rate 103 H 09/24/22 16:53 Blood Pressure 204/148 H 09/24/22 16:53 Pulse Oximetry 98 09/24/22 16:53 <Curtis Smith DO - Last Filed: 09/25/22 07:07> Initial Vital Signs Initial Vital Signs: Vital Signs Pulse Rate 103 H 09/24/22 16:53 Blood Pressure 204/148 H 09/24/22 16:53 Pulse Oximetry 98 09/24/22 16:53 Course <LORENA Matson - Last Filed: 09/24/22 18:47> Orders Ordered: Discontinued Medications Acetaminophen (Acetaminophen 325 Mg Tablet) 975 mg PO NOW ONE Stop: 09/24/22 16:57 Last Admin: 09/24/22 17:19 Dose: 975 mg Documented By: RB Atenolol (Atenolol 50 Mg Tablet) 50 mg PO NOW ONE Stop: 09/24/22 16:57 Last Admin: 09/24/22 17:21 Dose: 50 mg Documented By: RB Ketorolac Tromethamine (Ketorolac 30 Mg/Ml Vial) 15 mg IM NOW ONE Stop: 09/24/22 16:57 Last Admin: 09/24/22 17:19 Dose: 15 mg Documented By: RB Ondansetron HCl (Ondansetron 4 Mg Odt) 4 mg SL NOW ONE Stop: 09/24/22 16:57 Last Admin: 09/24/22 17:19 Dose: 4 mg Documented By: SHAHIDA Vital Signs Vital signs: Vital Signs - 8 hr 09/24/22 16:57 09/24/22 16:53 09/24/22 16:53 Temperature 98.5 F Pulse Rate 103 H 103 H Respiratory Rate 22 Blood Pressure 204/148 H 204/148 H Pulse Oximetry 98 98 Oxygen Delivery Method Room Air 09/24/22 16:57 09/24/22 16:57 09/24/22 17:00 Temperature Pulse Rate 101 H 98 H Respiratory Rate Blood Pressure 254/135 H Pulse Oximetry 98 98 Oxygen Delivery Method 09/24/22 17:01 09/24/22 17:01 09/24/22 17:11 Temperature Pulse Rate 98 H 97 H Respiratory Rate Blood Pressure 203/95 H Pulse Oximetry 97 98 Oxygen Delivery Method 09/24/22 17:11 09/24/22 17:54 09/24/22 18:11 Temperature Pulse Rate 82 71 Respiratory Rate 18 18 Blood Pressure 176/81 H 160/88 H 147/78 H Pulse Oximetry 96 98 Oxygen Delivery Method 09/24/22 17:16 09/24/22 17:16 09/24/22 17:41 Temperature Pulse Rate 97 H 90 Respiratory Rate Blood Pressure 217/101 H Pulse Oximetry 98 98 Oxygen Delivery Method 09/24/22 17:55 09/24/22 17:55 09/24/22 18:00 Temperature Pulse Rate 82 78 Respiratory Rate Blood Pressure 160/88 H Pulse Oximetry 98 96 Oxygen Delivery Method <Curtis Smith DO - Last Filed: 09/25/22 07:07> Orders Ordered: Discontinued Medications Acetaminophen (Acetaminophen 325 Mg Tablet) 975 mg PO NOW ONE Stop: 09/24/22 16:57 Last Admin: 09/24/22 17:19 Dose: 975 mg Documented By: RB Atenolol (Atenolol 50 Mg Tablet) 50 mg PO NOW ONE Stop: 09/24/22 16:57 Last Admin: 09/24/22 17:21 Dose: 50 mg Documented By: RB Ketorolac Tromethamine (Ketorolac 30 Mg/Ml Vial) 15 mg IM NOW ONE Stop: 09/24/22 16:57 Last Admin: 09/24/22 17:19 Dose: 15 mg Documented By: RB Ondansetron HCl (Ondansetron 4 Mg Odt) 4 mg SL NOW ONE Stop: 09/24/22 16:57 Last Admin: 09/24/22 17:19 Dose: 4 mg Documented By: SHAHIDA Vital Signs Vital signs: Vital Signs - 8 hr 09/24/22 16:57 09/24/22 16:53 09/24/22 16:53 Temperature 98.5 F Pulse Rate 103 H 103 H Respiratory Rate 22 Blood Pressure 204/148 H 204/148 H Pulse Oximetry 98 98 Oxygen Delivery Method Room Air 09/24/22 16:57 09/24/22 16:57 09/24/22 17:00 Temperature Pulse Rate 101 H 98 H Respiratory Rate Blood Pressure 254/135 H Pulse Oximetry 98 98 Oxygen Delivery Method 09/24/22 17:01 09/24/22 17:01 09/24/22 17:11 Temperature Pulse Rate 98 H 97 H Respiratory Rate Blood Pressure 203/95 H Pulse Oximetry 97 98 Oxygen Delivery Method 09/24/22 17:11 09/24/22 17:54 09/24/22 18:11 Temperature Pulse Rate 82 71 Respiratory Rate 18 18 Blood Pressure 176/81 H 160/88 H 147/78 H Pulse Oximetry 96 98 Oxygen Delivery Method 09/24/22 17:16 09/24/22 17:16 09/24/22 17:41 Temperature Pulse Rate 97 H 90 Respiratory Rate Blood Pressure 217/101 H Pulse Oximetry 98 98 Oxygen Delivery Method 09/24/22 17:55 09/24/22 17:55 09/24/22 18:00 Temperature Pulse Rate 82 78 Respiratory Rate Blood Pressure 160/88 H Pulse Oximetry 98 96 Oxygen Delivery Method MDM - Head Injury <Joann Donis Pryor, [facility] - Last Filed: 09/24/22 18:47> Lab Data 09/24/22 17:15 09/24/22 17:15 Labs: Lab Results 09/24/22 09/24/22 Range/Units 17:15 17:15 WBC 10.4 (4.5-11.0) X10^3/uL RBC 5.41 (4.5-5.9) X10^6/uL Hgb 15.6 (13.5-17.5) g/dL Hct 46.1 (41-53) % MCV 85.2 (80-100) fL MCH 28.8 (26-34) PG MCHC 33.8 (30-36) % RDW 14.4 (11.6-14.8) % Plt Count 301 (150-400) X10^3/uL Neut % (Auto) 65.8 (50-75) % Lymph % (Auto) 27.4 (25-40) % Boone % (Auto) 4.1 (3-14) % Eos % (Auto) 1.9 L (2-4) % Baso % (Auto) 0.8 (0-2) % Neut # (Auto) 6900 (7828-0838) /uL Lymph # (Auto) 2800 (3933-9179) /uL Boone # (Auto) 400 (0-900) /uL Eos # (Auto) 200 (0-450) /uL Baso # (Auto) 100 (0-100) /uL Sodium 140 (137-145) mmol/L Potassium 3.4 (3.4-5.1) mmol/L Chloride 102 (98-107) mmol/L Carbon Dioxide 26 (22-32) mmol/L BUN 15 (9-20) mg/dL Creatinine 0.78 (0.66-1.25) mg/dL Estimated GFR > 60 (>60) mL/min BUN/Creatinine Ratio 19.2 (6-22) Glucose 163 H (70-100) mg/dL Calcium 8.4 (8.4-10.2) mg/dL Magnesium 1.9 (1.6-2.3) mg/dL Total Bilirubin 0.6 (0.2-1.3) mg/dL AST 28 (17-59) IU/L ALT 39 (<50) IU/L Alkaline Phosphatase 110 (38-126) U/L Total Creatine Kinase 162 (55-170) U/L CK-MB (CK-2) 3.55 H (<2.37) ng/mL CK-MB (CK-2) Rel Index 2.2 (1.5-5.0) % Troponin I 0.013 (0.01-0.034) ng/mL NT-Pro-B Natriuret Pep 228 H (<125) pg/mL Total Protein 7.4 (6.3-8.2) g/dL Albumin 4.2 (3.5-5.0) g/dL Globulin 3.2 (1.7-4.1) g/dL Albumin/Globulin Ratio 1.3 (1.0-2.8) Lipase 45 (23-300) U/L Imaging Data CT scan - head: Radiologist's Impression: PROCEDURE:? CT HEAD/BRAIN WO CON ? INDICATIONS:? head injury yest ? TECHNIQUE:? Noncontrast 4.5 mm thick angled axial sections acquired from the foramen magnum to the vertex, with coronal and sagittal reformats.? For radiation dose reduction, the following was used:? automated exposure control, adjustment of mA and/or kV according to patient size.? ? COMPARISON:? [facility], CT, CT HEAD/BRAIN WO CON, 12/10/2020, 15:54. ? FINDINGS:? Image quality:? Excellent.? ? CSF spaces:? Basal cisterns are patent.? No extra-axial fluid collections.? Ventricles are normal in size and shape.? ? Brain:? No midline shift.? No intracranial masses or hemorrhage.? Hanna-white matter interface is normal.? ? Skull and face:? Calvarium and visualized facial bones are intact, without suspicious lesions.? ? Sinuses:? Visualized sinuses and mastoids are clear.? ? IMPRESSION:? No acute intracranial abnormality. ? ? Dictated by: Armando Jett M.D. on 09/24/2022 at 17:49 ? ? Approved by: Armando Jett M.D. on 09/24/2022 at 17:51 ? Chest x-ray: Radiologist's Impression: PROCEDURE:? XR CHEST 1V ? INDICATIONS:? sob, HTN, dizziness ? TECHNIQUE:? One view of the chest was acquired.? ? COMPARISON:? [facility], CR, XR CHEST 1V, 06/07/2022, 10:30. ? FINDINGS:? ? Surgical changes and devices:? None.? ? Lungs and pleura:? Lungs are clear.? No pleural effusions or pneumothorax.? Interstitial prominence is unchanged compared to the prior study and is likely chronic.? ? Mediastinum:? Mediastinal contours appear normal.? Heart size is normal.? ? Bones and chest wall:? No suspicious bony lesions.? Overlying soft tissues appear unremarkable.? ? IMPRESSION:? No acute cardiopulmonary abnormality. ? ? ? Dictated by: Armando Jett M.D. on 09/24/2022 at 17:54 ? ? Approved by: Armando Jett M.D. on 09/24/2022 at 17:54 ? ECG Data Interpretation: EKG independently reviewed by myself at [1710] reveals normal sinus rhythm at [95] bpm with regular axis and intervals. ST abnormality MDM Narrative Medical decision making narrative: Chief Complaint: fall Differential diagnoses include but are not limited to: Intracranial injury, closed head injury concussion, postconcussive syndrome, nasal bone fracture, facial fractures, broken teeth, whiplash injury, cervical spine/ligamental injury, trapezius injury I have reviewed the patient's vital signs and nursing notes as well as prior records if available. Pertinent lab findings reviewed: CBC within normal limits, CMP within normal limits, no elevation to troponin, CK, BNP or other, Pertinent Imaging reviewed: Chest x-ray without acute focal opacity or pneumothorax CT head and facial bones without contrast without acute abnormality Clinical decision rules or scores evaluated: Nexus C-spine, [place] head CT rule, chest pain Patient's heart score is 2, he does not have chest pain, shortness of breath, wheezing, dizziness, altered mentation. Does have hypertension, his headache symptoms were treated with Tylenol, IM Toradol, his hypertension was treated with p.o. atenolol and his blood pressure came down to 147/78. He initially had the wrong size blood pressure cuff on. I changed this for him. He is nontoxic appearing, without lab abnormalities of concern, his headache has improved and he does not have vision changes dizziness, or other symptoms of concern. He was given information about concussions, given a work note for the next 3 days to avoid exertion and return to the emergency department if he has worsening concussive symptoms, weakness, numbness or tingling or other. He was strongly encouraged to follow-up in obtain a primary care provider and he states that he will follow-up on this and promised. I refilled his atenolol 50 mg twice a day. Patient's symptoms improved over duration of stay with above-stated therapies. Social considerations that may affect disposition: none Questions are addressed and there is agreement with the plan and for follow-up. Patient is appropriate for outpatient management. MIPS: This encounter doesn't have any diagnosis' associated with MIPS criteria. <Curtis Smith DO - Last Filed: 09/25/22 07:07> Lab Data Labs: Lab Results 09/24/22 09/24/22 Range/Units 17:15 17:15 WBC 10.4 (4.5-11.0) X10^3/uL RBC 5.41 (4.5-5.9) X10^6/uL Hgb 15.6 (13.5-17.5) g/dL Hct 46.1 (41-53) % MCV 85.2 (80-100) fL MCH 28.8 (26-34) PG MCHC 33.8 (30-36) % RDW 14.4 (11.6-14.8) % Plt Count 301 (150-400) X10^3/uL Neut % (Auto) 65.8 (50-75) % Lymph % (Auto) 27.4 (25-40) % Boone % (Auto) 4.1 (3-14) % Eos % (Auto) 1.9 L (2-4) % Baso % (Auto) 0.8 (0-2) % Neut # (Auto) 6900 (4870-7867) /uL Lymph # (Auto) 2800 (3306-1926) /uL Boone # (Auto) 400 (0-900) /uL Eos # (Auto) 200 (0-450) /uL Baso # (Auto) 100 (0-100) /uL Sodium 140 (137-145) mmol/L Potassium 3.4 (3.4-5.1) mmol/L Chloride 102 (98-107) mmol/L Carbon Dioxide 26 (22-32) mmol/L BUN 15 (9-20) mg/dL Creatinine 0.78 (0.66-1.25) mg/dL Estimated GFR > 60 (>60) mL/min BUN/Creatinine Ratio 19.2 (6-22) Glucose 163 H (70-100) mg/dL Calcium 8.4 (8.4-10.2) mg/dL Magnesium 1.9 (1.6-2.3) mg/dL Total Bilirubin 0.6 (0.2-1.3) mg/dL AST 28 (17-59) IU/L ALT 39 (<50) IU/L Alkaline Phosphatase 110 (38-126) U/L Total Creatine Kinase 162 (55-170) U/L CK-MB (CK-2) 3.55 H (<2.37) ng/mL CK-MB (CK-2) Rel Index 2.2 (1.5-5.0) % Troponin I 0.013 (0.01-0.034) ng/mL NT-Pro-B Natriuret Pep 228 H (<125) pg/mL Total Protein 7.4 (6.3-8.2) g/dL Albumin 4.2 (3.5-5.0) g/dL Globulin 3.2 (1.7-4.1) g/dL Albumin/Globulin Ratio 1.3 (1.0-2.8) Lipase 45 (23-300) U/L Discharge Plan Departure Patient Disposition: Home Clinical Impression: Postconcussion syndrome Closed head injury Qualifiers: Encounter type: initial encounter Qualified Code(s): S09.90XA - Unspecified injury of head, initial encounter Concussion without loss of consciousness Qualifiers: Encounter type: initial encounter Qualified Code(s): S06.0X0A - Concussion without loss of consciousness, initial encounter Hypertension Qualifiers: Hypertension type: unspecified Qualified Code(s): I10 - Essential (primary) hypertension Instructions: Concussion, High Blood Pressure, DI for Closed Head Injury Activity Restrictions/Additional Instructions: *You have been diagnosed with high blood pressure, a head injury without facial bone fracture, bleeding in your brain, but you do have a left trapezius muscle strain which is common in a whiplash injury. Please rest, stay hydrated, take your blood pressure medication twice a day, please schedule an appointment with any primary care provider that your insurance covers you 4, you can call the number below to set up 1 here, you need to have a full medical screening and be put on the appropriate blood pressure medication for you. I hope that you start feeling better soon, thank you for coming in for evaluation, I think you have concussive symptoms and wish you did not work today however if you reduce your activity level and rest her brain comfortable your symptoms will hopefully go away. Please avoid going back to work or exerting herself physically until your headache and difficulty concentrating has gone away. *What to do: *Please continue to take your regular medications as directed. [x ] New medication prescriptions sent to your pharmacy: [facility] ] [ ] New medication written as a paper prescription [ ] No new medications given *Please follow up with your primary care provider in 2-3 days, call for an appointment. Let them know you were seen in the Emergency Department and that we asked that you be seen for follow-up. We will electronically transmit a record of today's note if your PCP is in our system *If you do not have a primary care provider please contact [phone] to establish care with one of the [facility] primary care providers. *Return to Emergency Department if you should have any new, worsening, or concerning symptoms, such as [fever greater than 101F, chills, worsening pain, persistent vomiting or other bothersome symptoms]. Prescriptions: New metoprolol tartrate 50 mg tablet 50 mg PO BID Qty: 60 2RF No Action ondansetron 4 mg tablet,disintegrating 4 mg PO TID-QID PRN (Reason: nausea and vomiting) Qty: 10 0RF atenolol 50 mg tablet 50 mg PO DAILY Qty: 30 0RF Stand Alone Forms: Patient Portal/API, Work Release Note <Curtis Smith, DO - Last Filed: 09/25/22 07:07> Cosign ED Attending Cosignature Attestation: Dr Smith Co-Sign Statement: I was available for consultation during this patient's emergency department visit. This chart is signed by myself for administrative purposes only. I did not have direct contact with this patient during this visit. They were seen independently by the APC.
--- NOTE | 2022-09-24 17:16 | DI.RAD.S_ITS ---
PROCEDURE: XR CHEST 1V INDICATIONS: sob, HTN, dizziness TECHNIQUE: One view of the chest was acquired. COMPARISON: [facility], CR, XR CHEST 1V, 06/07/2022, 10:30. FINDINGS: Surgical changes and devices: None. Lungs and pleura: Lungs are clear. No pleural effusions or pneumothorax. Interstitial prominence is unchanged compared to the prior study and is likely chronic. Mediastinum: Mediastinal contours appear normal. Heart size is normal. Bones and chest wall: No suspicious bony lesions. Overlying soft tissues appear unremarkable. IMPRESSION: No acute cardiopulmonary abnormality. Dictated by: Armando Jett M.D. on 09/24/2022 at 17:54 Approved by: Armando Jett M.D. on 09/24/2022 at 17:54
[2022-09-24] MEDS: KETOROLAC 30 MG/ML VIAL 15 MG IM (17:19)
[2022-09-24] MEDS: ONDANSETRON 4 MG ODT SL (17:19)
[2022-09-24] MEDS: ACETAMINOPHEN 325 MG TABLET 975 MG PO (17:19)
[2022-09-24] MEDS: atenoloL 50 MG TABLET PO (17:21)
[2022-09-24 17:34] LABS: Add Manual Diff / Slide Review NO; Basophils Absolute Auto 100 /uL (0-100); Basophils Percent Auto 0.8 % (0-2); Eosinophils Absolute Auto 200 /uL (0-450); Eosinophils Percent Auto 1.9 % (2-4); Hematocrit 46.1 % (41-53); Hemoglobin 15.6 g/dL (13.5-17.5); Lymphocytes Absolute Auto 2800 /uL (1100-4500); Lymphocytes Percent Auto 27.4 % (25-40); Mean Corpuscular HGB Conc 33.8 % (30-36); Mean Corpuscular Hemoglobin 28.8 PG (26-34); Mean Corpuscular Volume 85.2 fL (80-100); Monocytes Absolute Auto 400 /uL (0-900); Monocytes Percent Auto 4.1 % (3-14); Neutrophils Absolute Auto 6900 /uL (1500-7000); Neutrophils Percent Auto 65.8 % (50-75); Platelet Count 301 X10^3/uL (150-400); Red Blood Cell Count 5.41 X10^6/uL (4.5-5.9); Red Cell Distribution Width 14.4 % (11.6-14.8); White Blood Cell Count 10.4 X10^3/uL (4.5-11.0)
[2022-09-24 17:51] LABS: Alanine Aminotransferase 39 IU/L (<50); Albumin 4.2 g/dL (3.5-5.0); Albumin Globulin Ratio 1.3 (1.0-2.8); Alkaline Phosphatase 110 U/L (38-126); Aspartate Aminotransferase 28 IU/L (17-59); BUN Creatinine Ratio 19.2 (6-22); Bilirubin Total 0.6 mg/dL (0.2-1.3); Blood Urea Nitrogen 15 mg/dL (9-20); Calcium 8.4 mg/dL (8.4-10.2); Carbon Dioxide 26 mmol/L (22-32); Chloride 102 mmol/L (98-107); Creatine Kinase 162 U/L (55-170); Estimated Glomerular Filt Rate > 60 mL/min (>60); Globulin 3.2 g/dL (1.7-4.1); Glucose 163 mg/dL (70-100); HEMOLYSIS < 15 (0-50); Lipase 45 U/L (23-300); Magnesium 1.9 mg/dL (1.6-2.3); Potassium 3.4 mmol/L (3.4-5.1); Sodium 140 mmol/L (137-145); Total Protein 7.4 g/dL (6.3-8.2)
[2022-09-24 18:02] LABS: NT-proBNP (BNP-Adult 18+) 228 pg/mL (<125); Troponin I 0.013 ng/mL (0.01-0.034)
[2022-09-24 18:05] LABS: CKMB % Relative Index 2.2 % (1.5-5.0); Creatine Kinase MB 3.55 ng/mL (<2.37)
== END 2022-09-24 18:38 | disposition home or self-care (01) ==
PROVIDERS: Emergency Provider Nurse Practitioner Critical Care Medicine
DX: S06.0X0A Concussion without loss of consciousness, initial encounter (principal); I10 Essential (primary) hypertension; H53.8 Other visual disturbances; R51.9 Headache, unspecified; W18.09XA Striking against other object with subsequent fall, initial encounter
CPT/HCPCS: 36415; 70450; 70486; 71045; 80053; 82550; 82553; 83690; 83735; 83880; 84484; 85025; 93005; 93010; 96372; 99283; 99284; J1885

== ENCOUNTER 2023-03-09 22:52 | Emergency (ER) | payer SELFPAY ==
[2023-03-09 22:59] VITALS: BP 190/101; PULSE 100; RESP 20; TEMP 36.4; O2SAT 99; BMI 39.5
--- NOTE | 2023-03-09 23:08 | DI.RAD.S_ITS ---
PROCEDURE: XR CHEST 2V INDICATIONS: sob and cough TECHNIQUE: 2 views of the chest were acquired. COMPARISON: [facility], CR, XR CHEST 1V, 09/24/2022, 17:25. FINDINGS: Surgical changes and devices: None. Lungs and pleura: Lungs are clear. No pleural effusions or pneumothorax. Mediastinum: Mediastinal contours are normal. Heart size is normal. Bones and chest wall: No suspicious bony abnormalities. Soft tissues appear unremarkable. IMPRESSION: 1. No acute cardiopulmonary disease. Dictated by: Haroon Arroyo M.D. on 03/10/2023 at 1:28 Approved by: Haroon Arroyo M.D. on 03/10/2023 at 1:34
[2023-03-09 23:15] VITALS: PULSE 98; RESP 18
[2023-03-09 23:17] VITALS: BP 181/101; PULSE 97; RESP 18; O2SAT 98
[2023-03-09 23:30] VITALS: BP 180/79; PULSE 94; RESP 21; O2SAT 97
[2023-03-09 23:51] LABS: Influenza A - CEPHEID Flu A NEGATIVE (NEGATIVE); Influenza B - CEPHEID Flu B NEGATIVE (NEGATIVE); Respiratory Syncytial Virus Negative (Negative)
[2023-03-09 23:54] LABS: COVID-19 CEPHEID 4-PLEX PCR Negative (Negative)
[2023-03-10] VITALS: PULSE 84; RESP 21; O2SAT 96
[2023-03-10 00:30] VITALS: PULSE 78; RESP 19; O2SAT 96
[2023-03-10 01:00] VITALS: PULSE 89; RESP 20; O2SAT 97
--- NOTE | 2023-03-10 01:21 | ED_ITS ---
HPI - General Adult General Chief complaint: Upper Respiratory Symptoms Stated complaint: difficulty standing, breathing Time Seen by Provider: 03/09/23 23:20 Source: patient Mode of arrival: Ambulatory History of Present Illness HPI narrative: Patient is a 43-year-old male who is here for evaluation of about 24 hours congestion, shortness of breath. No chest pain. He is coughing. No fevers. Has a history of high blood pressure but has not been taking his medications. No skin rashes. Has not tried anything for the symptoms prior to arrival. Related Data Previous Rx's Medication Instructions Recorded atenolol 50 mg tablet 50 mg PO DAILY #30 tabs 12/10/20 ondansetron 4 mg disintegrating 4 mg PO TID-QID PRN nausea and 12/10/20 tablet vomiting #10 tabs metoprolol tartrate 50 mg tablet 50 mg PO BID #60 tabs 09/24/22 Allergies Allergy/AdvReac Type Severity Reaction Status Date / Time Penicillins Allergy Intermediate Verified 06/07/22 10:09 Review of Systems Constitutional Constitutional: Reports system reviewed and no additional complaints, except as documented ENT Ears, Nose, Mouth, and Throat: Reports system reviewed and no additional complaints, except as documented Respiratory Respiratory: Reports system reviewed and no additional complaints, except as documented Gastrointestinal Gastrointestinal: Reports system reviewed and no additional complaints, except as documented Integumentary/Breasts Skin/Breast: Reports system reviewed and no additional complaints, except as documented Patient History Medical History (Updated 03/10/23 @ 01:46 by Curtis Smith DO) Hypertension Surgical History No pertinent past surgical history Social History Smoking Status: Current every day smoker Smoking Status: Current every day smoker tobacco type: cigarettes alcohol intake frequency: holidays/special occasions only Substance Use Type: marijuana Exam Initial Vital Signs Initial Vital Signs: Vital Signs Temperature 97.6 F 03/09/23 22:59 Pulse Rate 100 H 03/09/23 22:59 Respiratory Rate 20 03/09/23 22:59 Blood Pressure 190/101 H 03/09/23 22:59 Pulse Oximetry 99 03/09/23 22:59 Oxygen Delivery Method Room Air 03/09/23 22:59 HENNH Head: normal to inspection and normocephalic Resp Effort & Inspection: normal respiratory effort Auscultation: clear to auscultation bilaterally Cardio Rate: regular rate Rhythm: regular rhythm Skin General: no rashes or lesions noted Neuro General: patient alert and patient awake Course Orders Ordered: ED Orders 03/09/23 23:05 Covid-19 + FLU A/B + RSV - PCR Stat 03/09/23 23:08 Chest [XR chest 2V] Stat Vital Signs Vital signs: Vital Signs - 8 hr 03/09/23 22:59 03/09/23 23:15 03/09/23 23:17 Temperature 97.6 F Pulse Rate 100 H 98 H 97 H Respiratory Rate 20 18 18 Blood Pressure 190/101 H Pulse Oximetry 99 98 Oxygen Delivery Method Room Air Room Air 03/09/23 23:17 03/09/23 23:30 03/09/23 23:30 Temperature Pulse Rate 94 H Respiratory Rate 21 Blood Pressure 181/101 H 180/79 H Pulse Oximetry 97 Oxygen Delivery Method Room Air 03/10/23 00:00 03/10/23 00:30 03/10/23 01:00 Temperature Pulse Rate 84 78 89 Respiratory Rate 21 19 20 Blood Pressure Pulse Oximetry 96 96 97 Oxygen Delivery Method Room Air Room Air Room Air 03/10/23 01:30 Temperature Pulse Rate 74 Respiratory Rate 21 Blood Pressure Pulse Oximetry 96 Oxygen Delivery Method Room Air Medical Decision Making Lab Data Lab results reviewed: Yes I reviewed the patient's lab results. Labs: Lab Results 03/09/23 Range/Units 23:05 SARS-CoV-2 (PCR) Negative (Negative) Influenza A (RT-PCR) Flu a negative (NEGATIVE) Influenza B (RT-PCR) Flu b negative (NEGATIVE) RSV (PCR) Negative (Negative) Imaging Data Chest x-ray: Radiologist's Impression: PROCEDURE:? XR CHEST 2V ? INDICATIONS:? sob and cough ? TECHNIQUE:? 2 views of the chest were acquired.? ? COMPARISON:? [facility], , XR CHEST 1V, 09/24/2022, 17:25. ? FINDINGS:? ? Surgical changes and devices:? None.? ? Lungs and pleura:? Lungs are clear.? No pleural effusions or pneumothorax.? ? Mediastinum:? Mediastinal contours are normal.? Heart size is normal.? ? Bones and chest wall:? No suspicious bony abnormalities.? Soft tissues appear unremarkable.? ? IMPRESSION:? ? 1.? No acute cardiopulmonary disease. MDM Narrative Medical decision making narrative: Chest x-ray shows no signs of pneumonia. Lungs are clear. Not tachypneic. Not hypoxic. Respiratory panel is negative. Indication for antibiotics. I did discuss this with the patient. Suspect viral illness. Will discharge patient home with instructions for symptom treatment. Discharge Plan Departure Patient Disposition: Home Clinical Impression: Chest congestion Instructions: Decongestant/Expectorant (By mouth) Activity Restrictions/Additional Instructions: The x-ray today did not show any signs of pneumonia. Continue to take all of your medications as directed return to the emergency department for new symptoms . Prescriptions: No Action ondansetron 4 mg tablet,disintegrating 4 mg PO TID-QID PRN (Reason: nausea and vomiting) Qty: 10 0RF atenolol 50 mg tablet 50 mg PO DAILY Qty: 30 0RF metoprolol tartrate 50 mg tablet 50 mg PO BID Qty: 60 2RF Stand Alone Forms: Patient Portal/API
[2023-03-10 01:30] VITALS: PULSE 74; RESP 21; O2SAT 96
== END 2023-03-10 01:59 | disposition home or self-care (01) ==
PROVIDERS: Emergency Provider Emergency Medicine
DX: R05.9 Cough, unspecified (principal); R09.89 Other specified symptoms and signs involving the circulatory and respiratory systems; Z20.822 Contact with and (suspected) exposure to COVID-19
CPT/HCPCS: 0241U; 71046; 99283

== ENCOUNTER 2023-05-25 17:43 | Emergency (ER) | payer SELFPAY ==
[2023-05-25] VITALS (51 sets, daily range): BP systolic 138–206; BP diastolic 70–117; PULSE 57–82; RESP 16–27; TEMP 37.6; O2SAT 89–100; BMI 39.5
--- NOTE | 2023-05-25 18:01 | DI.RAD.S_ITS ---
PROCEDURE: XR CHEST 1V INDICATIONS: chest pain TECHNIQUE: One view of the chest was acquired. COMPARISON: [facility], CR, XR CHEST 2V, 03/09/2023, 23:18. [facility], CR, XR CHEST 1V, 09/24/2022, 17:25. FINDINGS: Surgical changes and devices: None. Lungs and pleura: Lungs are clear. No pleural effusions or pneumothorax. Mediastinum: Mediastinal contours appear normal. Heart size is normal. Bones and chest wall: No suspicious bony lesions. Overlying soft tissues appear unremarkable. IMPRESSION: Portable chest within normal limits for age. Dictated by: Taiwo Rose M.D. on 05/25/2023 at 18:46 Approved by: Taiwo Rose M.D. on 05/25/2023 at 18:46
--- NOTE | 2023-05-25 18:13 | PC.NURSE ---
Pt in room from rai bed at 181.
[2023-05-25] MEDS: ASPIRIN 81 MG CHEW TAB 324 MG PO (18:20)
[2023-05-25 18:22] LABS: Add Manual Diff / Slide Review NO; Basophils Absolute Auto 100 /uL (0-100); Basophils Percent Auto 0.7 % (0-2); Eosinophils Absolute Auto 200 /uL (0-450); Eosinophils Percent Auto 1.1 % (2-4); Hematocrit 45.9 % (41-53); Hemoglobin 15.4 g/dL (13.5-17.5); Lymphocytes Absolute Auto 3600 /uL (1100-4500); Lymphocytes Percent Auto 27.2 % (25-40); Mean Corpuscular HGB Conc 33.6 % (30-36); Mean Corpuscular Hemoglobin 28.3 PG (26-34); Mean Corpuscular Volume 84.2 fL (80-100); Monocytes Absolute Auto 700 /uL (0-900); Neutrophils Absolute Auto 8800 /uL (1500-7000); Platelet Count 343 X10^3/uL (150-400); Red Blood Cell Count 5.46 X10^6/uL (4.5-5.9); Red Cell Distribution Width 14.8 % (11.6-14.8); White Blood Cell Count 13.4 X10^3/uL (4.5-11.0)
--- NOTE | 2023-05-25 18:22 | PC.NURSE ---
Addendum entered by Bozena Mendez R.N. 05/25/23 18:25: Reports last methamphetamine usage 24 hrs ago. Original Note: Pt reports using methamphetamine PO 3-4 times a week, each dose is roughly 1/2 gram.
[2023-05-25] MEDS: NITROGLYCERIN 0.4 MG SL TAB SL (18:24)
[2023-05-25 18:30] LABS: INR 1.1 (0.9-1.3); Prothrombin Time 13.1 SECONDS (10.1-12.7)
[2023-05-25 18:33] LABS: Alanine Aminotransferase 31 IU/L (<50); Albumin 4.3 g/dL (3.5-5.0); Albumin Globulin Ratio 1.2 (1.0-2.8); Alkaline Phosphatase 106 U/L (38-126); Aspartate Aminotransferase 25 IU/L (17-59); BUN Creatinine Ratio 14.6 (6-22); Bilirubin Total 0.8 mg/dL (0.2-1.3); Blood Urea Nitrogen 12 mg/dL (9-20); Calcium 9.3 mg/dL (8.4-10.2); Carbon Dioxide 27 mmol/L (22-32); Chloride 103 mmol/L (98-107); Creatine Kinase 145 U/L (55-170); Estimated Glomerular Filt Rate > 60 mL/min (>60); Globulin 3.6 g/dL (1.7-4.1); Glucose 137 mg/dL (70-100); HEMOLYSIS 16 (0-50); Lipase 43 U/L (23-300); PTT Partial Thromboplastin Tim 29 SECONDS (26-36); Potassium 3.7 mmol/L (3.4-5.1); Sodium 140 mmol/L (137-145); Total Protein 7.9 g/dL (6.3-8.2)
--- NOTE | 2023-05-25 18:35 | CM.SWNOTE ---
ED EIGHT ARM OPERATOR Note EIGHT ARM OPERATOR receives consult due to concern for patient's report of concern regarding losing housing soon. Patient is 43 y/o male who presents to ED due to concern for chest pain. Patient endorses in triage that he used methamphetamine yesterday. EIGHT ARM OPERATOR enters room to meet with patient, patient presents as A/Ox4. 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 Patient endorses he reached out to [facility], [facility] and [facility] for financial resources to maintain his housing. Patient endorses his is a few weeks away from delivering their baby. Patient endorses that he is seeking work and has a few job offers that he can follow up with. EIGHT ARM OPERATOR provides patient with food, social service and housing resources. EIGHT ARM OPERATOR asks if there are any other resources patient is interested in or if EIGHT ARM OPERATOR can assist with anything and patient denies need. ED provider to evaluate patient further regarding medical presentation to ED. Mariya Garcia, CABINETMAKER MAINTENANCE
--- NOTE | 2023-05-25 18:36 | ED.CHESTPAIN ---
HPI - Chest Pain General Chief Complaint: Chest Pain Stated Complaint: chest pain Time Seen by Provider: 05/25/23 18:08 Source: patient Mode of arrival: Ambulatory Limitations: no limitations History of Present Illness HPI narrative: 43M daily smoker with history of HTN presents with chest pain that started this afternoon. He states that he has been in his normal state of health and denies any exertional symptoms, exercise intolerance or unexplained fatigue. He has been taking his medications as directed and denies any change in his dosing but he states he did miss the 1st dose of his metoprolol yesterday. He states that he was grocery shopping and felt flushed in his face and a bit of a vague headache that was then followed by sharp and stabbing 8/10 chest pain with the occasional radiation to his left shoulder. He denies dizziness, weakness or lightheadedness. He denies nausea, vomiting but did feel a little bit sweaty. He denies fever or chills. He has no runny nose, sore throat or cough. Denies any abdominal pain, dysuria, frequency or urgency. He denies any obvious provocation or palliation. He does admit to using methamphetamines a few times per week, most recently about 24 hours ago consuming 0.5 g shard orally Related Data Previous Rx's Medication Instructions Recorded atenolol 50 mg tablet 50 mg PO DAILY #30 tabs 12/10/20 ondansetron 4 mg disintegrating 4 mg PO TID-QID PRN nausea and 12/10/20 tablet vomiting #10 tabs metoprolol tartrate 50 mg tablet 50 mg PO BID #60 tabs 09/24/22 Allergies Allergy/AdvReac Type Severity Reaction Status Date / Time Penicillins Allergy Intermediate Verified 05/25/23 17:50 Review of Systems Review of Systems Narrative: GENERAL: Denies chills, fatigue, malaise, fever, sweats. HEENT: Denies sinus pain, ear pain, sore throat, difficulty swallowing, dizziness. RESPIRATORY: Denies dyspnea, cough, wheezing, hemoptysis, sputum. CARDIOVASCULAR: See HPI GASTROINTESTINAL: Denies nausea, vomiting, abdominal pain, diarrhea, constipation, melena. : Denies dysuria, frequency, incontinence, hematuria, urinary retention. MUSCULOSKELETAL: denies weakness, joint pain, or bony pain SKIN: Denies rash, skin lesions, or other NEUROLOGIC: See HPI PSYCHIATRIC: No concerning psychosocial issues. 12 point review of systems is negative except for those stated above Patient History Medical History (Updated 05/25/23 @ 22:03 by Axel [place] DO) Hypertension Surgical History No pertinent past surgical history Social History Smoking Status: Current every day smoker Smoking Status: Current every day smoker tobacco type: cigarettes alcohol intake frequency: holidays/special occasions only Substance Use Type: marijuana Exam Narrative Exam Narrative: GENERAL: [43] year old patient appears stated age. Well-developed patient, in mild distress. HEAD: Atraumatic. Normocephalic. EYES: Pupils equal round and reactive. Extraocular motions intact. No scleral icterus. No injection or drainage. ENT: Nose without bleeding, purulent drainage. Throat without erythema, tonsillar hypertrophy or exudate. Airway patent. NECK: Trachea midline. Non tender CARDIOVASCULAR: Regular rate and rhythm without murmurs, gallops, or rubs. RESPIRATORY: Clear to auscultation. Breath sounds equal bilaterally. No wheezes, rales, or rhonchi. GASTROINTESTINAL: Abdomen soft, non-tender, nondistended. EXTREMITIES: No edema or joint tenderness. BACK: Nontender without deformity or crepitance. No flank tenderness. NEURO: AOx3. SKIN: No rash or erythema of visible areas Initial Vital Signs Initial Vital Signs: Vital Signs Temperature 99.6 F 05/25/23 17:46 Pulse Rate 75 05/25/23 17:46 Respiratory Rate 22 05/25/23 17:46 Blood Pressure 206/117 H 05/25/23 17:46 Pulse Oximetry 98 05/25/23 17:46 Oxygen Delivery Method Room Air 05/25/23 17:46 Scores HEART Score Heart Score history: Moderately Suspicious Heart Score EKG: Non-Specific repolarization disturbance Heart Score Age: < 45 years old Heart Score risk factors: 1-2 risk factors Heart Score troponin: < or = to normal limit Heart Score Total: 3 Course Orders Ordered: ED Orders 05/25/23 17:51 Consult to PROPERTY SITE MANAGER - Programming Internship Stat 05/25/23 18:01 XR chest 1V Stat 05/25/23 18:08 EKG-12 Lead Stat 05/25/23 18:10 CRP [C-Reactive Protein Quant] Stat Complete Blood Count AUTO DIFF Stat Comprehensive Metabolic Panel Stat D Dimer Stat ESR [Erythrocyte Sedimentation Rate] Stat Lipase Stat Magnesium Stat PTT Partial Thromboplastin Ricardo Stat Prothrombin Time INR Stat Troponin & CK Cardiac Panel Stat 05/25/23 21:24 Troponin & CK Cardiac Panel Stat Discontinued Medications Aspirin (Aspirin 81 Mg Chew Tab) 324 mg PO NOW ONE Stop: 05/25/23 18:02 Last Admin: 05/25/23 18:20 Dose: 324 mg Documented By: ERNST Metoprolol Tartrate (Metoprolol Ir 25 Mg Tablet) 50 mg PO NOW ONE Stop: 05/25/23 18:45 Last Admin: 05/25/23 18:50 Dose: 50 mg Documented By: ERNST Nitroglycerin (Nitroglycerin 0.4 Mg Sl Tab) 0.4 mg SL [id number] PRN PRN Reason: Chest Pain Last Admin: 05/25/23 18:24 Dose: 0.4 mg Documented By: ERNST Reevaluation(s) Reevaluation #1: Patient given nitro which improved discomfort to 5/10, initial blood pressure 2016/117 and improved to 165/91 withi improved discomfort Reevaluation #2: Patient completely symptom free once blood pressure down to the 140s and on his routine medications. Vital Signs Vital signs: Vital Signs - 8 hr 05/25/23 17:46 05/25/23 18:15 05/25/23 18:20 Temperature 99.6 F Pulse Rate 75 77 Respiratory Rate 22 Blood Pressure 206/117 H 195/104 H Pulse Oximetry 98 96 Oxygen Delivery Method Room Air 05/25/23 18:20 05/25/23 18:24 05/25/23 18:26 Temperature Pulse Rate 81 82 82 Respiratory Rate Blood Pressure 165/91 H Pulse Oximetry 97 97 Oxygen Delivery Method 05/25/23 18:26 05/25/23 18:30 05/25/23 18:30 Temperature Pulse Rate 79 Respiratory Rate Blood Pressure 165/91 H 175/98 H Pulse Oximetry 96 Oxygen Delivery Method 05/25/23 18:33 05/25/23 18:33 05/25/23 18:35 Temperature Pulse Rate 82 Respiratory Rate 23 Blood Pressure 185/101 H 186/104 H Pulse Oximetry 98 Oxygen Delivery Method 05/25/23 18:35 05/25/23 18:40 05/25/23 18:40 Temperature Pulse Rate 80 78 Respiratory Rate 24 22 Blood Pressure 186/102 H Pulse Oximetry 98 97 Oxygen Delivery Method 05/25/23 18:45 05/25/23 18:45 05/25/23 18:50 Temperature Pulse Rate 74 Respiratory Rate 17 Blood Pressure 167/93 H 183/102 H Pulse Oximetry 96 Oxygen Delivery Method 05/25/23 18:50 05/25/23 18:55 05/25/23 18:55 Temperature Pulse Rate 77 75 Respiratory Rate 23 24 Blood Pressure 167/98 H Pulse Oximetry 97 Oxygen Delivery Method 05/25/23 19:00 05/25/23 19:00 05/25/23 19:05 Temperature Pulse Rate 70 67 Respiratory Rate 18 18 Blood Pressure 173/100 H Pulse Oximetry 94 94 Oxygen Delivery Method 05/25/23 19:05 05/25/23 19:10 05/25/23 19:10 Temperature Pulse Rate 68 Respiratory Rate 18 Blood Pressure 173/96 H 165/91 H Pulse Oximetry 94 Oxygen Delivery Method 05/25/23 19:15 05/25/23 19:15 05/25/23 19:20 Temperature Pulse Rate 68 Respiratory Rate 18 Blood Pressure 172/90 H 171/91 H Pulse Oximetry 94 Oxygen Delivery Method 05/25/23 19:20 05/25/23 19:25 05/25/23 19:25 Temperature Pulse Rate 67 66 Respiratory Rate 17 17 Blood Pressure 165/90 H Pulse Oximetry 95 95 Oxygen Delivery Method 05/25/23 19:30 05/25/23 19:30 05/25/23 19:35 Temperature Pulse Rate 66 68 Respiratory Rate 17 27 H Blood Pressure 162/91 H Pulse Oximetry 95 98 Oxygen Delivery Method 05/25/23 19:35 05/25/23 19:40 05/25/23 19:40 Temperature Pulse Rate 64 Respiratory Rate 17 Blood Pressure 171/92 H 170/91 H Pulse Oximetry 97 Oxygen Delivery Method 05/25/23 19:45 05/25/23 19:45 05/25/23 19:50 Temperature Pulse Rate 60 64 Respiratory Rate 18 18 Blood Pressure 163/87 H Pulse Oximetry 100 100 Oxygen Delivery Method 05/25/23 19:50 05/25/23 19:55 05/25/23 19:55 Temperature Pulse Rate 63 Respiratory Rate 17 Blood Pressure 155/88 H 160/84 H Pulse Oximetry 99 Oxygen Delivery Method 05/25/23 20:00 05/25/23 20:00 05/25/23 20:05 Temperature Pulse Rate 63 62 Respiratory Rate 18 18 Blood Pressure 138/80 Pulse Oximetry 99 99 Oxygen Delivery Method 05/25/23 20:05 05/25/23 20:10 05/25/23 20:10 Temperature Pulse Rate 61 Respiratory Rate 17 Blood Pressure 157/90 H 161/91 H Pulse Oximetry 96 Oxygen Delivery Method 05/25/23 20:15 05/25/23 20:15 05/25/23 20:20 Temperature Pulse Rate 66 57 L Respiratory Rate 20 20 Blood Pressure 167/98 H Pulse Oximetry 93 92 Oxygen Delivery Method 05/25/23 20:20 05/25/23 20:25 05/25/23 20:25 Temperature Pulse Rate 57 L Respiratory Rate 19 Blood Pressure 158/87 H 142/78 H Pulse Oximetry 92 Oxygen Delivery Method 05/25/23 20:30 05/25/23 20:30 05/25/23 20:36 Temperature Pulse Rate 57 L Respiratory Rate 19 Blood Pressure 146/76 H 138/75 Pulse Oximetry 91 Oxygen Delivery Method 05/25/23 20:36 05/25/23 20:40 05/25/23 20:40 Temperature Pulse Rate 58 L 58 L Respiratory Rate 19 19 Blood Pressure 143/79 H Pulse Oximetry 89 L 91 Oxygen Delivery Method 05/25/23 20:45 05/25/23 20:45 05/25/23 20:50 Temperature Pulse Rate 58 L 58 L Respiratory Rate 19 18 Blood Pressure 142/78 H Pulse Oximetry 91 90 L Oxygen Delivery Method 05/25/23 20:50 05/25/23 20:55 05/25/23 20:55 Temperature Pulse Rate 61 Respiratory Rate 19 Blood Pressure 140/76 145/72 H Pulse Oximetry 91 Oxygen Delivery Method 05/25/23 21:00 05/25/23 21:01 05/25/23 21:01 Temperature Pulse Rate 59 L 59 L Respiratory Rate 18 17 Blood Pressure 147/96 H Pulse Oximetry 97 97 Oxygen Delivery Method 05/25/23 21:05 05/25/23 21:05 05/25/23 21:11 Temperature Pulse Rate 58 L 63 Respiratory Rate 19 16 Blood Pressure 152/78 H Pulse Oximetry 96 97 Oxygen Delivery Method 05/25/23 21:11 05/25/23 21:15 05/25/23 21:15 Temperature Pulse Rate 61 Respiratory Rate 18 Blood Pressure 148/80 H 145/90 H Pulse Oximetry 98 Oxygen Delivery Method 05/25/23 21:21 05/25/23 21:21 05/25/23 21:25 Temperature Pulse Rate 62 62 Respiratory Rate 20 21 Blood Pressure 155/101 H Pulse Oximetry 97 97 Oxygen Delivery Method 05/25/23 21:25 05/25/23 21:30 05/25/23 21:30 Temperature Pulse Rate 60 Respiratory Rate 22 Blood Pressure 162/105 H 164/101 H Pulse Oximetry 97 Oxygen Delivery Method 05/25/23 21:35 05/25/23 21:35 05/25/23 21:41 Temperature Pulse Rate 63 64 Respiratory Rate 19 20 Blood Pressure 168/106 H Pulse Oximetry 99 98 Oxygen Delivery Method 05/25/23 21:41 05/25/23 21:46 05/25/23 21:46 Temperature Pulse Rate 64 Respiratory Rate 20 Blood Pressure 204/98 H 174/70 H Pulse Oximetry 96 Oxygen Delivery Method 05/25/23 21:50 05/25/23 21:50 05/25/23 21:56 Temperature Pulse Rate 64 Respiratory Rate 21 Blood Pressure 163/70 H 155/95 H Pulse Oximetry 98 Oxygen Delivery Method 05/25/23 21:56 05/25/23 22:00 05/25/23 22:05 Temperature Pulse Rate 65 66 Respiratory Rate 24 23 Blood Pressure 141/95 H Pulse Oximetry 97 Oxygen Delivery Method MDM - Chest Pain Lab Data 05/25/23 18:10 05/25/23 18:10 Labs: Lab Results 05/25/23 05/25/23 Range/Units 18:10 21:24 WBC 13.4 H (4.5-11.0) X10^3/uL RBC 5.46 (4.5-5.9) X10^6/uL Hgb 15.4 (13.5-17.5) g/dL Hct 45.9 (41-53) % MCV 84.2 (80-100) fL MCH 28.3 (26-34) PG MCHC 33.6 (30-36) % RDW 14.8 (11.6-14.8) % Plt Count 343 (150-400) X10^3/uL Neut % (Auto) 66.0 (50-75) % Lymph % (Auto) 27.2 (25-40) % [place] % (Auto) 5.0 (3-14) % Eos % (Auto) 1.1 L (2-4) % Baso % (Auto) 0.7 (0-2) % Neut # (Auto) 8800 H (4043-1945) /uL Lymph # (Auto) 3600 (4000-0387) /uL [place] # (Auto) 700 (0-900) /uL Eos # (Auto) 200 (0-450) /uL Baso # (Auto) 100 (0-100) /uL ESR 6 (0-15) MM/HR PT 13.1 H (10.1-12.7) SECONDS INR 1.1 (0.9-1.3) APTT 29 (26-36) SECONDS D-Dimer 250 (<500) ng/ml Sodium 140 (137-145) mmol/L Potassium 3.7 (3.4-5.1) mmol/L Chloride 103 (98-107) mmol/L Carbon Dioxide 27 (22-32) mmol/L BUN 12 (9-20) mg/dL Creatinine 0.82 (0.66-1.25) mg/dL Estimated GFR > 60 (>60) mL/min BUN/Creatinine Ratio 14.6 (6-22) Glucose 137 H (70-100) mg/dL Calcium 9.3 (8.4-10.2) mg/dL Magnesium 2.0 (1.6-2.3) mg/dL Total Bilirubin 0.8 (0.2-1.3) mg/dL AST 25 (17-59) IU/L ALT 31 (<50) IU/L Alkaline Phosphatase 106 (38-126) U/L Total Creatine Kinase 145 114 (55-170) U/L Troponin I < 0.012 0.013 (0.01-0.034) ng/mL C-Reactive Protein 2.4 H (<1.0) mg/dL Total Protein 7.9 (6.3-8.2) g/dL Albumin 4.3 (3.5-5.0) g/dL Globulin 3.6 (1.7-4.1) g/dL Albumin/Globulin Ratio 1.2 (1.0-2.8) Lipase 43 (23-300) U/L MDM Narrative Medical decision making narrative: [43] year old patient presents with chest pain and critically elevated blood pressure Multiple etiologies for patient's symptoms considered including, but not limited to: [Cardiac ischemia versus hypertensive emergency versus pulmonary embolism versus other] Prior Charts reviewed in our EMR Primary Historian: patient Labs reviewed and interpreted by myself: Slight leukocytosis of 13.4 without left shift, no signs of anemia, D-dimer 250 (below cutoff), primary electrolytes and function within normal, troponin negative x2 HEART Score low Imaging reviewed: Chest x-ray without acute findings Patient with reassuring history and physical exam. Multiple diagnoses considered as noted above. Cardiac ischemia thought extremely unlikely given lack of exertional symptoms, lack of exercise intolerance, low risk, low heart score, nonischemic EKG, troponin negative x2. Pulmonary embolism considered but thought unlikely given negative D-dimer. Dissection and other vascular catastrophe thought unlikely given complete resolution of symptoms, lack of lab and imaging abnormalities. Hypertension thought most likely given the temporal relationship between symptoms and blood pressure and resolution of symptoms along with improved blood pressure control. Patient's symptoms improved over duration of stay with above-stated therapies. Findings and discharge diagnosis discussed with patient/family followed by verbalization of understanding Return precautions discussed with patient/family whom verbalize understanding of diagnosis and plan Discharge Plan Departure Patient Disposition: Home Clinical Impression: Atypical chest pain Instructions: DI for Atypical Chest Pain Activity Restrictions/Additional Instructions: *You have been diagnosed with [atypical chest pain, likely a consequence of elevated blood pressure. As we discussed there is no evidence of blood clot or heart attack] *What to do: *Please continue to take your regular medications as directed. [ ] New medication prescriptions sent to your pharmacy: [ ] [ ] New medication written as a paper prescription [ ] No new medications given *Please follow up with your primary care provider in 2-3 days, call for an appointment. Let them know you were seen in the Emergency Department and that we ask that you be seen in follow up. We will electronically transmit a record of today's note if your PCP is in our system *If you do not have a primary care provider please contact the [facility] Resource line at [phone]. They will ask some questions about your medical history and help get you set up with a doctor in the community. *Return to Emergency Department if you should have any new, worsening or concerning symptoms, such as [fever greater than 101 F, shaking chills, worsening pain, persistent vomiting or other bothersome symptoms] Prescriptions: No Action ondansetron 4 mg tablet,disintegrating 4 mg PO TID-QID PRN (Reason: nausea and vomiting) Qty: 10 0RF atenolol 50 mg tablet 50 mg PO DAILY Qty: 30 0RF metoprolol tartrate 50 mg tablet 50 mg PO BID Qty: 60 2RF Stand Alone Forms: Patient Portal/API
--- NOTE | 2023-05-25 18:36 | PC.NURSE ---
Nitro 1st dose given 182 chest pain 8/10. At 1830 pt reports 1/10 chest discomfort.
[2023-05-25 18:37] LABS: C-Reactive Protein Quant 2.4 mg/dL (<1.0)
[2023-05-25 18:42] LABS: D Dimer 250 ng/ml (<500)
[2023-05-25 18:45] LABS: Troponin I < 0.012 ng/mL (0.01-0.034)
[2023-05-25 18:49] LABS: Erythrocyte Sedimentation Rate 6 MM/HR (0-15)
[2023-05-25] MEDS: METOPROLOL IR 25 MG TABLET 50 MG PO (18:50)
[2023-05-25 21:41] LABS: Creatine Kinase 114 U/L (55-170)
[2023-05-25 21:54] LABS: Troponin I 0.013 ng/mL (0.01-0.034)
== END 2023-05-25 22:07 | disposition home or self-care (01) ==
PROVIDERS: Emergency Medicine; Emergency Provider Emergency Medicine
DX: R07.89 Other chest pain (principal)
CPT/HCPCS: 36415; 71045; 80053; 82550; 83690; 83735; 84484; 85025; 85379; 85610; 85651; 85730; 86140; 93005; 99284

== ENCOUNTER 2024-01-23 13:29 | Emergency (ER) | payer SELFPAY ==
[2024-01-23] VITALS (47 sets, daily range): BP systolic 152–234; BP diastolic 74–112; PULSE 60–87; RESP 13–23; TEMP 36.7; O2SAT 95–99; BMI 39.5
--- NOTE | 2024-01-23 14:11 | DI.RAD.S_ITS ---
PROCEDURE: XR CHEST 1V INDICATIONS: chest pain TECHNIQUE: One view of the chest was acquired. COMPARISON: [facility], CR, XR CHEST 1V, 05/25/2023, 18:08. [facility], CR, XR CHEST 2V, 03/09/2023, 23:18. FINDINGS: Surgical changes and devices: None. Lungs and pleura: Lungs are clear. No pleural effusions or pneumothorax. Mediastinum: Mediastinal contours appear normal. Heart size is normal. Bones and chest wall: No suspicious bony lesions. Overlying soft tissues appear unremarkable. IMPRESSION: No acute cardiopulmonary abnormality is seen. Dictated by: Brian Man M.D. on 01/23/2024 at 14:49 Approved by: Brian Man M.D. on 01/23/2024 at 14:49
[2024-01-23] MEDS: ASPIRIN 81 MG CHEW TAB 324 MG PO (16:07)
--- NOTE | 2024-01-23 16:28 | PC.NURSE ---
Pt reports not taking blood pressure medications for a while due to lack of insurance. Pt reports dizziness for past 3 days with intermittent chest pain and some intermittent blurred vision. Pt is tearful and asking if he is going to be OK.
[2024-01-23 16:31] LABS: Add Manual Diff / Slide Review NO; Basophils Absolute Auto 100 /uL (0-100); Basophils Percent Auto 0.8 % (0-2); Eosinophils Absolute Auto 200 /uL (0-450); Eosinophils Percent Auto 2.6 % (2-4); Hematocrit 45.8 % (41-53); Hemoglobin 15.4 g/dL (13.5-17.5); Lymphocytes Absolute Auto 2900 /uL (1100-4500); Lymphocytes Percent Auto 32.2 % (25-40); Mean Corpuscular HGB Conc 33.6 % (30-36); Mean Corpuscular Hemoglobin 29.3 PG (26-34); Mean Corpuscular Volume 87.1 fL (80-100); Monocytes Absolute Auto 500 /uL (0-900); Monocytes Percent Auto 5.4 % (3-14); Neutrophils Absolute Auto 5300 /uL (1500-7000); Platelet Count 284 X10^3/uL (150-400); Red Blood Cell Count 5.25 X10^6/uL (4.5-5.9); Red Cell Distribution Width 14.5 % (11.6-14.8)
[2024-01-23 16:40] LABS: HEMOLYSIS < 15 (0-50); Prothrombin Time 11.7 SECONDS (9.4-12.5)
[2024-01-23 16:43] LABS: PTT Partial Thromboplastin Tim 34 SECONDS (25.1-36.5)
[2024-01-23 16:45] LABS: Alanine Aminotransferase 31 IU/L (<50); Albumin 4.1 g/dL (3.5-5.0); Albumin Globulin Ratio 1.4 (1.0-2.8); Alkaline Phosphatase 98 U/L (38-126); Aspartate Aminotransferase 24 IU/L (17-59); BUN Creatinine Ratio 17.4 (6-22); Bilirubin Total 0.6 mg/dL (0.2-1.3); Blood Urea Nitrogen 15 mg/dL (9-20); Calcium 8.5 mg/dL (8.4-10.2); Carbon Dioxide 33 mmol/L (22-32); Chloride 103 mmol/L (98-107); Creatine Kinase 145 U/L (55-170); Estimated Glomerular Filt Rate > 60 mL/min (>60); Glucose 134 mg/dL (70-100); Lipase 40 U/L (23-300); Magnesium 2.1 mg/dL (1.6-2.3); Potassium 3.8 mmol/L (3.4-5.1); Sodium 138 mmol/L (137-145); Total Protein 7.1 g/dL (6.3-8.2)
[2024-01-23 16:59] LABS: Troponin I 0.024 ng/mL (0.01-0.034)
--- NOTE | 2024-01-23 17:46 | ED_ITS ---
HPI - General Adult <Gio Wong MD - Last Filed: 01/24/24 07:14> General Chief complaint: Hypertension Stated complaint: Think he has High BP Time Seen by Provider: 01/23/24 17:46 Source: patient Mode of arrival: Ambulatory History of Present Illness HPI narrative: 43-year-old male with history of hypertension, in the past had been on metoprolol and lisinopril, ran out of insurance, has been off medication, feels pressure behind his eyes that he usually feels when his blood pressure has been too high in the past. He is interested in starting blood pressure medication again. He denies having any chest pain. He denies having any weakness numbness to face arm or leg. He denies having trouble breathing. He also denies any recent fevers, chills, cough, shortness of breath, swelling of the legs. Related Data Previous Rx's Medication Instructions Recorded atenolol 50 mg tablet 50 mg PO DAILY #30 tabs 12/10/20 ondansetron 4 mg disintegrating 4 mg PO TID-QID PRN nausea and 12/10/20 tablet vomiting #10 tabs metoprolol tartrate 50 mg tablet 50 mg PO BID #60 tabs 09/24/22 lisinopril 20 mg tablet 20 mg PO BID #60 tabs 01/23/24 metoprolol tartrate 50 mg tablet 50 mg PO BID #60 tabs 01/23/24 Allergies Allergy/AdvReac Type Severity Reaction Status Date / Time Penicillins Allergy Intermediate Verified 01/23/24 14:06 Patient History <Gio Wong MD - Last Filed: 01/24/24 07:14> Medical History (Updated 01/24/24 @ 00:37 by Curtis Smith DO) Hypertension Surgical History No pertinent past surgical history Social History Smoking Status: Current every day smoker Smoking Status: Current every day smoker tobacco type: cigarettes alcohol intake frequency: holidays/special occasions only Substance Use Type: marijuana Exam <Gio Wong MD - Last Filed: 01/24/24 07:14> Narrative Exam Narrative: GENERAL: Well-developed patient, in mild distress. HEAD: Atraumatic. Normocephalic. EYES: Pupils equal round and reactive. Extraocular motions intact. No scleral icterus. No injection or drainage. ENT: Nose without bleeding, purulent drainage. Throat without erythema, tonsillar hypertrophy or exudate. Airway patent. NECK: Trachea midline. Non tender CARDIOVASCULAR: Regular rate and rhythm without murmurs, gallops, or rubs. RESPIRATORY: Clear to auscultation. Breath sounds equal bilaterally. No wheezes, rales, or rhonchi. GASTROINTESTINAL: Abdomen soft, non-tender, nondistended. EXTREMITIES: No edema or joint tenderness. BACK: Nontender without deformity or crepitance. No flank tenderness. NEURO: AOx3. SKIN: No rash or erythema of visible areas Initial Vital Signs Initial Vital Signs: Vital Signs Temperature 98.1 F 01/23/24 14:02 Pulse Rate 87 01/23/24 14:02 Respiratory Rate 20 01/23/24 14:02 Blood Pressure 234/112 H 01/23/24 14:02 Pulse Oximetry 97 01/23/24 14:02 Oxygen Delivery Method Room Air 01/23/24 14:02 <Curtis Smith DO - Last Filed: 01/24/24 01:36> Initial Vital Signs Initial Vital Signs: Vital Signs Temperature 98.1 F 01/23/24 14:02 Pulse Rate 87 01/23/24 14:02 Respiratory Rate 20 01/23/24 14:02 Blood Pressure 234/112 H 01/23/24 14:02 Pulse Oximetry 97 01/23/24 14:02 Oxygen Delivery Method Room Air 01/23/24 14:02 Course <Gio Wong MD - Last Filed: 01/24/24 07:14> Orders Ordered: Discontinued Medications Aspirin (Aspirin 81 Mg Chew Tab) 324 mg PO NOW ONE Stop: 01/23/24 14:12 Last Admin: 01/23/24 16:07 Dose: 324 mg Documented By: KEITH Diazepam (Diazepam 10 Mg/2 Ml Syringe) 2 mg IV NOW ONE Stop: 01/23/24 23:40 Last Admin: 01/23/24 23:59 Dose: 2 mg Documented By: KEITH Hydralazine HCl (Hydralazine 20 Mg/Ml Vial) 10 mg IV Q6HR PRN PRN Reason: Hypertension Last Admin: 01/23/24 19:26 Dose: 10 mg Documented By: SB Lisinopril (Lisinopril 20 Mg Tablet) 20 mg PO NOW ONE Stop: 01/23/24 18:01 Last Admin: 01/23/24 18:05 Dose: 20 mg Documented By: SB Meclizine HCl (Meclizine Hcl 12.5 Mg Tablet) 25 mg PO NOW ONE Stop: 01/23/24 21:53 Last Admin: 01/23/24 22:07 Dose: 25 mg Documented By: VALERY Metoprolol Tartrate (Metoprolol Ir 25 Mg Tablet) 50 mg PO NOW ONE Stop: 01/23/24 18:02 Last Admin: 01/23/24 18:04 Dose: 50 mg Documented By: SB Vital Signs Vital signs: Vital Signs - 8 hr 01/23/24 23:20 01/23/24 23:20 01/23/24 23:30 Pulse Rate 62 Respiratory Rate 16 Blood Pressure 168/79 H 171/83 H Pulse Oximetry 96 Oxygen Delivery Method 01/23/24 23:30 01/23/24 23:40 01/23/24 23:40 Pulse Rate 66 62 Respiratory Rate 23 16 Blood Pressure 166/75 H Pulse Oximetry 95 95 Oxygen Delivery Method Room Air 01/23/24 23:50 01/23/24 23:50 01/24/24 00:00 Pulse Rate 69 69 Respiratory Rate 17 15 Blood Pressure 166/74 H Pulse Oximetry 95 96 Oxygen Delivery Method 01/24/24 00:00 01/24/24 00:10 01/24/24 00:10 Pulse Rate 72 Respiratory Rate 22 Blood Pressure 160/72 H 180/70 H Pulse Oximetry 97 Oxygen Delivery Method 01/24/24 00:20 01/24/24 00:20 01/24/24 00:30 Pulse Rate 64 Respiratory Rate 16 Blood Pressure 169/73 H 148/65 H Pulse Oximetry 95 Oxygen Delivery Method 01/24/24 00:30 Pulse Rate 66 Respiratory Rate 16 Blood Pressure Pulse Oximetry 95 Oxygen Delivery Method <Curtis Smith DO - Last Filed: 01/24/24 01:36> Orders Ordered: Discontinued Medications Aspirin (Aspirin 81 Mg Chew Tab) 324 mg PO NOW ONE Stop: 01/23/24 14:12 Last Admin: 01/23/24 16:07 Dose: 324 mg Documented By: KEITH Diazepam (Diazepam 10 Mg/2 Ml Syringe) 2 mg IV NOW ONE Stop: 01/23/24 23:40 Last Admin: 01/23/24 23:59 Dose: 2 mg Documented By: KEITH Hydralazine HCl (Hydralazine 20 Mg/Ml Vial) 10 mg IV Q6HR PRN PRN Reason: Hypertension Last Admin: 01/23/24 19:26 Dose: 10 mg Documented By: SB Lisinopril (Lisinopril 20 Mg Tablet) 20 mg PO NOW ONE Stop: 01/23/24 18:01 Last Admin: 01/23/24 18:05 Dose: 20 mg Documented By: SB Meclizine HCl (Meclizine Hcl 12.5 Mg Tablet) 25 mg PO NOW ONE Stop: 01/23/24 21:53 Last Admin: 01/23/24 22:07 Dose: 25 mg Documented By: VALERY Metoprolol Tartrate (Metoprolol Ir 25 Mg Tablet) 50 mg PO NOW ONE Stop: 01/23/24 18:02 Last Admin: 01/23/24 18:04 Dose: 50 mg Documented By: SB Vital Signs Vital signs: Vital Signs - 8 hr 01/23/24 23:20 01/23/24 23:20 01/23/24 23:30 Pulse Rate 62 Respiratory Rate 16 Blood Pressure 168/79 H 171/83 H Pulse Oximetry 96 Oxygen Delivery Method 01/23/24 23:30 01/23/24 23:40 01/23/24 23:40 Pulse Rate 66 62 Respiratory Rate 23 16 Blood Pressure 166/75 H Pulse Oximetry 95 95 Oxygen Delivery Method Room Air 01/23/24 23:50 01/23/24 23:50 01/24/24 00:00 Pulse Rate 69 69 Respiratory Rate 17 15 Blood Pressure 166/74 H Pulse Oximetry 95 96 Oxygen Delivery Method 01/24/24 00:00 01/24/24 00:10 01/24/24 00:10 Pulse Rate 72 Respiratory Rate 22 Blood Pressure 160/72 H 180/70 H Pulse Oximetry 97 Oxygen Delivery Method 01/24/24 00:20 01/24/24 00:20 01/24/24 00:30 Pulse Rate 64 Respiratory Rate 16 Blood Pressure 169/73 H 148/65 H Pulse Oximetry 95 Oxygen Delivery Method 01/24/24 00:30 Pulse Rate 66 Respiratory Rate 16 Blood Pressure Pulse Oximetry 95 Oxygen Delivery Method Medical Decision Making <Gio Wong MD - Last Filed: 01/24/24 07:14> Lab Data 01/23/24 16:23 01/23/24 16:23 Labs: Lab Results 01/23/24 01/23/24 Range/Units 16:23 20:30 WBC 9.0 (4.5-11.0) X10^3/uL RBC 5.25 (4.5-5.9) X10^6/uL Hgb 15.4 (13.5-17.5) g/dL Hct 45.8 (41-53) % MCV 87.1 (80-100) fL MCH 29.3 (26-34) PG MCHC 33.6 (30-36) % RDW 14.5 (11.6-14.8) % Plt Count 284 (150-400) X10^3/uL Neut % (Auto) 59.0 (50-75) % Lymph % (Auto) 32.2 (25-40) % [place] % (Auto) 5.4 (3-14) % Eos % (Auto) 2.6 (2-4) % Baso % (Auto) 0.8 (0-2) % Neut # (Auto) 5300 (8086-1610) /uL Lymph # (Auto) 2900 (9497-1915) /uL [place] # (Auto) 500 (0-900) /uL Eos # (Auto) 200 (0-450) /uL Baso # (Auto) 100 (0-100) /uL PT 11.7 (9.4-12.5) SECONDS INR 1.0 (0.9-1.3) APTT 34 (25.1-36.5) SECONDS Sodium 138 (137-145) mmol/L Potassium 3.8 (3.4-5.1) mmol/L Chloride 103 (98-107) mmol/L Carbon Dioxide 33 H (22-32) mmol/L BUN 15 (9-20) mg/dL Creatinine 0.86 (0.66-1.25) mg/dL Estimated GFR > 60 (>60) mL/min BUN/Creatinine Ratio 17.4 (6-22) Glucose 134 H (70-100) mg/dL Calcium 8.5 (8.4-10.2) mg/dL Magnesium 2.1 (1.6-2.3) mg/dL Total Bilirubin 0.6 (0.2-1.3) mg/dL AST 24 (17-59) IU/L ALT 31 (<50) IU/L Alkaline Phosphatase 98 (38-126) U/L Total Creatine Kinase 145 (55-170) U/L Troponin I 0.024 0.022 (0.01-0.034) ng/mL Total Protein 7.1 (6.3-8.2) g/dL Albumin 4.1 (3.5-5.0) g/dL Globulin 3.0 (1.7-4.1) g/dL Albumin/Globulin Ratio 1.4 (1.0-2.8) Lipase 40 (23-300) U/L Imaging Data Chest x-ray: Radiologist's Impression: [address] [address] XRay Report Signed Patient: Tushar Herron MR#: [id number] : 1980 Acct:[id number] Age/Sex: 43 / M Date of Service: 01/23/24 Loc: ED Accession Number: [id number] Procedure: XR chest 1V Ordering Provider: Erica Cardona D.O. PROCEDURE: XR CHEST 1V INDICATIONS: chest pain TECHNIQUE: One view of the chest was acquired. COMPARISON: [facility], CR, XR CHEST 1V, 05/25/2023, 18:08. [facility], CR, XR CHEST 2V, 03/09/2023, 23:18. FINDINGS: Surgical changes and devices: None. Lungs and pleura: Lungs are clear. No pleural effusions or pneumothorax. Mediastinum: Mediastinal contours appear normal. Heart size is normal. Bones and chest wall: No suspicious bony lesions. Overlying soft tissues appear unremarkable. IMPRESSION: No acute cardiopulmonary abnormality is seen. Dictated by: Brian Man M.D. on 01/23/2024 at 14:49 Approved by: Brian Man M.D. on 01/23/2024 at 14:49 ECG Data Attestation: I personally reviewed and interpreted this ECG as follows: Interpretation: Normal sinus rhythm with rate of 76, T-wave inversions lateral leads, T-wave inversion lead to, early repolarization changes with LVH. No significant change morphology from comparison study 05/25/2023. NC 150, QRS 98, QTC 438. Repeat EKG 01/23/2024 at 8:13 p.m.. Normal sinus rhythm with rate 69, LVH noted, with T-wave inversions leads I, II, V5-V6, aVL are again noted. No change from prior study. MDM Narrative Medical decision making narrative: 43-year-old with elevated blood pressure, history of hypertension, round medications due to insurance change, has sensation in his face that he usually is when blood pressure quite high. No weakness or numbness symptoms. No chest pain or shortness of breath. Screening EKG without obvious ischemic changes. Troponin negative. He recalls being on lisinopril believes that was 20 mg daily dose, he believes he was on metoprolol 50 mg dose. We will give lisinopril 20 mg p.o., metoprolol 50 mg p.o. for now. Blood pressure elevated after oral lisinopril and oral metoprolol, IV hydralazine dose. Systolic blood pressure 170. Consider discharge on prescriptions for metoprolol and lisinopril, sent to his pharmacy. 2029, patient had an episode of chest pain, was not having chest pain prior, repeat EKG this visit shows similar changes to prior study, which was unchanged from 05/25/2023 study. Patient willing to have 2nd troponin drawn, still pending. Signed out to [facility] ED shift physician Dr Smith <Curtis Smith, DO - Last Filed: 01/24/24 01:36> Lab Data Labs: Lab Results 01/23/24 01/23/24 Range/Units 16:23 20:30 WBC 9.0 (4.5-11.0) X10^3/uL RBC 5.25 (4.5-5.9) X10^6/uL Hgb 15.4 (13.5-17.5) g/dL Hct 45.8 (41-53) % MCV 87.1 (80-100) fL MCH 29.3 (26-34) PG MCHC 33.6 (30-36) % RDW 14.5 (11.6-14.8) % Plt Count 284 (150-400) X10^3/uL Neut % (Auto) 59.0 (50-75) % Lymph % (Auto) 32.2 (25-40) % [place] % (Auto) 5.4 (3-14) % Eos % (Auto) 2.6 (2-4) % Baso % (Auto) 0.8 (0-2) % Neut # (Auto) 5300 (6376-5965) /uL Lymph # (Auto) 2900 (6025-2311) /uL [place] # (Auto) 500 (0-900) /uL Eos # (Auto) 200 (0-450) /uL Baso # (Auto) 100 (0-100) /uL PT 11.7 (9.4-12.5) SECONDS INR 1.0 (0.9-1.3) APTT 34 (25.1-36.5) SECONDS Sodium 138 (137-145) mmol/L Potassium 3.8 (3.4-5.1) mmol/L Chloride 103 (98-107) mmol/L Carbon Dioxide 33 H (22-32) mmol/L BUN 15 (9-20) mg/dL Creatinine 0.86 (0.66-1.25) mg/dL Estimated GFR > 60 (>60) mL/min BUN/Creatinine Ratio 17.4 (6-22) Glucose 134 H (70-100) mg/dL Calcium 8.5 (8.4-10.2) mg/dL Magnesium 2.1 (1.6-2.3) mg/dL Total Bilirubin 0.6 (0.2-1.3) mg/dL AST 24 (17-59) IU/L ALT 31 (<50) IU/L Alkaline Phosphatase 98 (38-126) U/L Total Creatine Kinase 145 (55-170) U/L Troponin I 0.024 0.022 (0.01-0.034) ng/mL Total Protein 7.1 (6.3-8.2) g/dL Albumin 4.1 (3.5-5.0) g/dL Globulin 3.0 (1.7-4.1) g/dL Albumin/Globulin Ratio 1.4 (1.0-2.8) Lipase 40 (23-300) U/L MDM Narrative Medical decision making narrative: 43-year-old with elevated blood pressure, history of hypertension, round medications due to insurance change, has sensation in his face that he usually is when blood pressure quite high. No weakness or numbness symptoms. No chest pain or shortness of breath. Screening EKG without obvious ischemic changes. Troponin negative. He recalls being on lisinopril believes that was 20 mg daily dose, he believes he was on metoprolol 50 mg dose. We will give lisinopril 20 mg p.o., metoprolol 50 mg p.o. for now. Blood pressure elevated after oral lisinopril and oral metoprolol, IV hydralazine dose. Systolic blood pressure 170. Consider discharge on prescriptions for metoprolol and lisinopril, sent to his pharmacy. 2029, patient had an episode of chest pain, was not having chest pain prior, repeat EKG this visit shows similar changes to prior study, which was unchanged from 05/25/2023 study. Patient willing to have 2nd troponin drawn, still pending. [facility] Sarah smith: Received turned over. Review patient's history and physical and workup it was point. EKGs have been unchanged. Repeat troponin was negative. His blood pressure improved after medications. He then developed episodes of vertigo. Was given meclizine which did very little to improve his symptoms. He was then given a dose of Valium. This completely resolved all of his symptoms. His blood pressure improved. His chest pain has resolved. Will discharge patient home with instructions to start back on his blood pressure medicines that he has been taking in the past. He was given return precautions. He expressed understanding and agreement. Discharge Plan Departure Patient Disposition: Home Clinical Impression: Hypertension, Vertigo Instructions: DI for High Blood Pressure Activity Restrictions/Additional Instructions: Medications were sent to [facility] for your blood pressure. Please start taking them as directed. Contact your primary provider for follow-up. Return to the emergency department for new symptoms. Prescriptions: New metoprolol tartrate 50 mg tablet 50 mg PO BID Qty: 60 0RF lisinopril 20 mg tablet 20 mg PO BID Qty: 60 0RF No Action ondansetron 4 mg tablet,disintegrating 4 mg PO TID-QID PRN (Reason: nausea and vomiting) Qty: 10 0RF atenolol 50 mg tablet 50 mg PO DAILY Qty: 30 0RF metoprolol tartrate 50 mg tablet 50 mg PO BID Qty: 60 2RF Referrals: Miscellaneous,MD Julien [Primary Care Provider] - Harrison Anderson MD [Physician] - Stand Alone Forms: Patient Portal/API
[2024-01-23] MEDS: METOPROLOL IR 25 MG TABLET 50 MG PO (18:04)
[2024-01-23] MEDS: lisinopriL 20 MG TABLET PO (18:05)
[2024-01-23] MEDS: HYDRALAZINE 20 MG/ML VIAL 10 MG IV (19:26)
--- NOTE | 2024-01-23 20:04 | PC.NURSE ---
PERSONAL SECRETARY NOTE: ambulation trial complete. PT, Stated dizziness and fuzziness in the left eye. RN aware.
--- NOTE | 2024-01-23 20:06 | PC.NURSE ---
Pt steady on feet. Reported lightheadedness and blurred vision to [employer]. Provider Marvin made aware.
[2024-01-23 21:08] LABS: Troponin I 0.022 ng/mL (0.01-0.034)
[2024-01-23] MEDS: MECLIZINE HCL 12.5 MG TABLET 25 MG PO (22:07)
--- NOTE | 2024-01-23 23:34 | PC.NURSE ---
Pt reports chest pain/pressure is better, but the dizziness remains. Provider Shellier made aware.
[2024-01-23] MEDS: diazePAM 10 MG/2 ML SYRINGE 2 MG IV (23:59)
[2024-01-24] VITALS: BP 160/72; PULSE 69; RESP 15; O2SAT 96
[2024-01-24 00:10] VITALS: BP 180/70; PULSE 72; RESP 22; O2SAT 97
[2024-01-24 00:20] VITALS: BP 169/73; PULSE 64; RESP 16; O2SAT 95
[2024-01-24 00:30] VITALS: BP 148/65; PULSE 66; RESP 16; O2SAT 95
--- NOTE | 2024-01-24 00:33 | PC.NURSE ---
Pt reports to this RN, The dizziness is all gone. I fell night and day different. Provider Sarah made aware.
== END 2024-01-24 00:53 | disposition home or self-care (01) ==
PROVIDERS: Emergency Medicine; Emergency Provider Emergency Medicine
DX: I10 Essential (primary) hypertension (principal); R42 Dizziness and giddiness; R07.9 Chest pain, unspecified
CPT/HCPCS: 36415; 71045; 80053; 82550; 83690; 83735; 84484; 85025; 85610; 85730; 93005; 96374; 96375; 99284; J0360; J3360

== ENCOUNTER 2024-03-23 13:55 | Emergency (ER) | payer SELFPAY ==
[2024-03-23] VITALS (16 sets, daily range): BP systolic 165–217; BP diastolic 77–117; PULSE 76–107; RESP 17–31; TEMP 37.2; O2SAT 93–97; BMI 39.5
--- NOTE | 2024-03-23 14:21 | ED.ABDPAIN ---
HPI - Abdominal Pain <Vic Palmer PA-C - Last Filed: 03/23/24 18:35> General Chief Complaint: Abdominal Pain Stated Complaint: Kidney Pain Time Seen by Provider: 03/23/24 14:20 Source: patient Mode of arrival: Wheelchair History of Present Illness HPI narrative: This is a 44-year-old male presents to the emergency department due to left lower quadrant pain onset 4 days ago. Was no trauma or any other incidents that the patient can remember that caused the pain. States that the pain is intermittent but significantly increased after the plane ride from [place] to [place] yesterday. States that it is intermittent but when he does feel the pain in his 8 or 04/30. He also reports associated episodes of nausea. Denies any vomiting or diarrhea. Denies any fevers. History of renal abscess in the past which required long-term IV antibiotics. Also has a history of kidney stones. Denies any hematuria or other urinary symptoms. Related Data Previous Rx's Medication Instructions Recorded atenolol 50 mg tablet 50 mg PO DAILY #30 tabs 12/10/20 ondansetron 4 mg disintegrating 4 mg PO TID-QID PRN nausea and 12/10/20 tablet vomiting #10 tabs metoprolol tartrate 50 mg tablet 50 mg PO BID #60 tabs 09/24/22 lisinopril 20 mg tablet 20 mg PO BID #60 tabs 01/23/24 metoprolol tartrate 50 mg tablet 50 mg PO BID #60 tabs 01/23/24 ciprofloxacin HCl 500 mg tablet 500 mg PO BID #14 tabs 03/23/24 ondansetron 4 mg disintegrating 4 mg PO Q8H PRN nausea and 03/23/24 tablet vomiting #20 tabs oxycodone 5 mg capsule 5 mg PO Q6H PRN pain #20 caps 03/23/24 Allergies Allergy/AdvReac Type Severity Reaction Status Date / Time Penicillins Allergy Intermediate Verified 01/23/24 14:06 Review of Systems <Vic Palmer PA-C - Last Filed: 03/23/24 18:35> Review of Systems Narrative: GENERAL: Denies chills, fatigue, malaise, fever, sweats. HEENT: Denies sinus pain, ear pain, sore throat, difficulty swallowing, dizziness. RESPIRATORY: Denies dyspnea, cough, wheezing, hemoptysis, sputum. CARDIOVASCULAR: Denies chest pain, palpitations, orthopnea, edema, GASTROINTESTINAL: Reports left lower quadrant abdominal pain and nausea nausea, Deniesvomiting, abdominal pain, diarrhea, constipation, melena. : Denies dysuria, frequency, incontinence, hematuria, urinary retention. MUSCULOSKELETAL: denies weakness, joint pain, or bony pain SKIN: Denies rash, skin lesions, or other NEUROLOGIC: Denies weakness, headache, numbness, change in speech, confusion, seizures, incoordination. PSYCHIATRIC: No concerning psychosocial issues. 12 point review of systems is negative except for those stated above Patient History <Vic Palmer PA-C - Last Filed: 03/23/24 18:35> Medical History (Updated 03/23/24 @ 18:11 by Vic Palmer PA-C) Hypertension Surgical History No pertinent past surgical history Social History Smoking Status: Current every day smoker Smoking Status: Current every day smoker tobacco type: cigarettes alcohol intake frequency: holidays/special occasions only Substance Use Type: marijuana Exam <Vic Palmer PA-C - Last Filed: 03/23/24 18:35> Narrative Exam Narrative: GENERAL: Well-developed patient, in mild distress. HEAD: Atraumatic. Normocephalic. EYES: Pupils equal round and reactive. Extraocular motions intact. No scleral icterus. No injection or drainage. ENT: Nose without bleeding, purulent drainage. Throat without erythema, tonsillar hypertrophy or exudate. Airway patent. NECK: Trachea midline. Non tender EXTREMITIES: No edema or joint tenderness. NEURO: AOx3. SKIN: No rash or erythema of visible areas Abdomen: Left lower quadrant tenderness to palpation Initial Vital Signs Initial Vital Signs: Vital Signs Temperature 98.9 F 03/23/24 14:03 Pulse Rate 100 H 03/23/24 14:03 Respiratory Rate 18 03/23/24 14:03 Blood Pressure 184/92 H 03/23/24 14:03 Pulse Oximetry 97 03/23/24 14:03 Oxygen Delivery Method Room Air 03/23/24 14:03 <Valerie Delcid DO - Last Filed: 03/25/24 07:20> Initial Vital Signs Initial Vital Signs: Vital Signs Temperature 98.9 F 03/23/24 14:03 Pulse Rate 100 H 03/23/24 14:03 Respiratory Rate 18 03/23/24 14:03 Blood Pressure 184/92 H 03/23/24 14:03 Pulse Oximetry 97 03/23/24 14:03 Oxygen Delivery Method Room Air 03/23/24 14:03 Course <Vic Palmer PA-C - Last Filed: 03/23/24 18:35> Orders Ordered: Discontinued Medications Ceftriaxone Sodium 1,000 mg/ (Sodium Chloride) 100 mls @ 200 mls/hr IV NOW ONE Stop: 03/23/24 16:34 Last Infusion: 03/23/24 17:20 Dose: Infused Documented By: Admin: 03/23/24 16:49 Dose: 200 mls/hr Documented By: GRICEL Sodium Chloride (Normal Saline 0.9%) 1,000 mls @ 1,000 mls/hr IV BOLUS ONE Stop: 03/23/24 17:32 Last Infusion: 03/23/24 17:59 Dose: Infused Documented By: Admin: 03/23/24 16:50 Dose: 1,000 mls/hr Documented By: GRICEL Ketorolac Tromethamine (Ketorolac 30 Mg/Ml Vial) 15 mg IV NOW ONE Stop: 03/23/24 16:34 Last Admin: 03/23/24 16:49 Dose: 15 mg Documented By: GRICEL Metoprolol Tartrate (Metoprolol Ir 25 Mg Tablet) 50 mg PO NOW ONE Stop: 03/23/24 14:38 Last Admin: 03/23/24 14:47 Dose: 50 mg Documented By: GRICEL Morphine Sulfate (Morphine 4 Mg/Ml Inj) 4 mg IV NOW ONE Stop: 03/23/24 15:06 Last Admin: 03/23/24 15:11 Dose: 4 mg Documented By: GRICEL Ondansetron HCl (Ondansetron 4 Mg/2 Ml Inj) 4 mg IV NOW PRN PRN Reason: Nausea And Vomiting Last Admin: 03/23/24 14:48 Dose: 4 mg Documented By: GRICEL Ondansetron HCl (Ondansetron 4 Mg Odt) 4 mg PO NOW PRN PRN Reason: Nausea And Vomiting Vital Signs Vital signs: Vital Signs - 8 hr 03/23/24 14:03 03/23/24 14:20 03/23/24 14:23 Temperature 98.9 F Pulse Rate 100 H 100 H 101 H Respiratory Rate 18 17 20 Blood Pressure 184/92 H Pulse Oximetry 97 Oxygen Delivery Method Room Air 03/23/24 14:23 03/23/24 14:30 03/23/24 14:30 Temperature Pulse Rate 100 H Respiratory Rate 21 Blood Pressure 210/99 H 203/95 H Pulse Oximetry Oxygen Delivery Method 03/23/24 15:00 03/23/24 15:01 03/23/24 15:01 Temperature Pulse Rate 107 H 104 H Respiratory Rate 31 H 22 Blood Pressure 212/94 H Pulse Oximetry 97 96 Oxygen Delivery Method 03/23/24 15:36 03/23/24 16:00 03/23/24 16:30 Temperature Pulse Rate 85 82 76 Respiratory Rate 27 H 23 19 Blood Pressure Pulse Oximetry 97 95 93 Oxygen Delivery Method 03/23/24 16:35 03/23/24 16:35 03/23/24 17:00 Temperature Pulse Rate 77 84 Respiratory Rate 19 28 H Blood Pressure 210/100 H Pulse Oximetry 95 95 Oxygen Delivery Method 03/23/24 17:01 03/23/24 17:01 03/23/24 17:30 Temperature Pulse Rate 84 80 Respiratory Rate 24 20 Blood Pressure 217/117 H Pulse Oximetry 96 96 Oxygen Delivery Method 03/23/24 17:31 03/23/24 17:31 03/23/24 18:00 Temperature Pulse Rate 81 80 Respiratory Rate 23 20 Blood Pressure 187/89 H Pulse Oximetry 96 96 Oxygen Delivery Method 03/23/24 18:01 03/23/24 18:01 Temperature Pulse Rate 79 Respiratory Rate 19 Blood Pressure 165/77 H Pulse Oximetry 96 Oxygen Delivery Method <Valerie Delcid, DO - Last Filed: 03/25/24 07:20> Orders Ordered: Discontinued Medications Ceftriaxone Sodium 1,000 mg/ (Sodium Chloride) 100 mls @ 200 mls/hr IV NOW ONE Stop: 03/23/24 16:34 Last Infusion: 03/23/24 17:20 Dose: Infused Documented By: Admin: 03/23/24 16:49 Dose: 200 mls/hr Documented By: GRICEL Sodium Chloride (Normal Saline 0.9%) 1,000 mls @ 1,000 mls/hr IV BOLUS ONE Stop: 03/23/24 17:32 Last Infusion: 03/23/24 17:59 Dose: Infused Documented By: Admin: 03/23/24 16:50 Dose: 1,000 mls/hr Documented By: GRICEL Ketorolac Tromethamine (Ketorolac 30 Mg/Ml Vial) 15 mg IV NOW ONE Stop: 03/23/24 16:34 Last Admin: 03/23/24 16:49 Dose: 15 mg Documented By: GRICEL Metoprolol Tartrate (Metoprolol Ir 25 Mg Tablet) 50 mg PO NOW ONE Stop: 03/23/24 14:38 Last Admin: 03/23/24 14:47 Dose: 50 mg Documented By: GRICEL Morphine Sulfate (Morphine 4 Mg/Ml Inj) 4 mg IV NOW ONE Stop: 03/23/24 15:06 Last Admin: 03/23/24 15:11 Dose: 4 mg Documented By: GRICEL Ondansetron HCl (Ondansetron 4 Mg/2 Ml Inj) 4 mg IV NOW PRN PRN Reason: Nausea And Vomiting Last Admin: 03/23/24 14:48 Dose: 4 mg Documented By: GRICEL Ondansetron HCl (Ondansetron 4 Mg Odt) 4 mg PO NOW PRN PRN Reason: Nausea And Vomiting Vital Signs Vital signs: Vital Signs - 8 hr 03/23/24 14:03 03/23/24 14:20 03/23/24 14:23 Temperature 98.9 F Pulse Rate 100 H 100 H 101 H Respiratory Rate 18 17 20 Blood Pressure 184/92 H Pulse Oximetry 97 Oxygen Delivery Method Room Air 03/23/24 14:23 03/23/24 14:30 03/23/24 14:30 Temperature Pulse Rate 100 H Respiratory Rate 21 Blood Pressure 210/99 H 203/95 H Pulse Oximetry Oxygen Delivery Method 03/23/24 15:00 03/23/24 15:01 03/23/24 15:01 Temperature Pulse Rate 107 H 104 H Respiratory Rate 31 H 22 Blood Pressure 212/94 H Pulse Oximetry 97 96 Oxygen Delivery Method 03/23/24 15:36 03/23/24 16:00 03/23/24 16:30 Temperature Pulse Rate 85 82 76 Respiratory Rate 27 H 23 19 Blood Pressure Pulse Oximetry 97 95 93 Oxygen Delivery Method 03/23/24 16:35 03/23/24 16:35 03/23/24 17:00 Temperature Pulse Rate 77 84 Respiratory Rate 19 28 H Blood Pressure 210/100 H Pulse Oximetry 95 95 Oxygen Delivery Method 03/23/24 17:01 03/23/24 17:01 03/23/24 17:30 Temperature Pulse Rate 84 80 Respiratory Rate 24 20 Blood Pressure 217/117 H Pulse Oximetry 96 96 Oxygen Delivery Method 03/23/24 17:31 03/23/24 17:31 03/23/24 18:00 Temperature Pulse Rate 81 80 Respiratory Rate 23 20 Blood Pressure 187/89 H Pulse Oximetry 96 96 Oxygen Delivery Method 03/23/24 18:01 03/23/24 18:01 Temperature Pulse Rate 79 Respiratory Rate 19 Blood Pressure 165/77 H Pulse Oximetry 96 Oxygen Delivery Method MDM - Abdominal Pain <Vic Palmer PA-C - Last Filed: 03/23/24 18:35> Lab Data 03/23/24 14:30 03/23/24 14:30 Labs: Lab Results 03/23/24 03/23/24 03/23/24 Range/Units 14:30 14:47 16:40 WBC 14.6 H (4.5-11.0) X10^3/uL RBC 5.24 (4.5-5.9) X10^6/uL Hgb 15.0 (13.5-17.5) g/dL Hct 45.8 (41-53) % MCV 87.5 (80-100) fL MCH 28.7 (26-34) PG MCHC 32.8 (30-36) % RDW 14.2 (11.6-14.8) % Plt Count 278 (150-400) X10^3/uL Neut % (Auto) 75.1 H (50-75) % Lymph % (Auto) 14.6 L (25-40) % [place] % (Auto) 9.1 (3-14) % Eos % (Auto) 0.7 L (2-4) % Baso % (Auto) 0.5 (0-2) % Neut # (Auto) 69768 H (5518-6394) /uL Lymph # (Auto) 2100 (9701-3175) /uL [place] # (Auto) 1300 H (0-900) /uL Eos # (Auto) 100 (0-450) /uL Baso # (Auto) 100 (0-100) /uL Sodium 132 L (137-145) mmol/L Potassium 4.1 (3.4-5.1) mmol/L Chloride 101 (98-107) mmol/L Carbon Dioxide 21 L (22-32) mmol/L BUN 15 (9-20) mg/dL Creatinine 1.02 (0.66-1.25) mg/dL Estimated GFR > 60 (>60) mL/min BUN/Creatinine Ratio 14.7 (6-22) Glucose 188 H (70-100) mg/dL Lactate 1.6 (0.7-2.1) mmol/L Calcium 8.7 (8.4-10.2) mg/dL Total Bilirubin 0.9 (0.2-1.3) mg/dL AST 26 (17-59) IU/L ALT 25 (<50) IU/L Alkaline Phosphatase 94 (38-126) U/L Total Protein 7.2 (6.3-8.2) g/dL Albumin 4.1 (3.5-5.0) g/dL Globulin 3.1 (1.7-4.1) g/dL Albumin/Globulin Ratio 1.3 (1.0-2.8) Lipase 36 (23-300) U/L Procalcitonin 0.136 (<0.5) ng/mL Urine RBC 0-1/hpf (0-5/HPF) Urine WBC 1-5/hpf (0-5/HPF) Ur Squamous Epith Cells 0-1 /hpf (0-5/HPF) Urine Bacteria Few (2-10) H (None) Ur Culture Indicated? Specimen cultured Vol Urine Centrifuged 10ml (spun) Point of care testing: Urine Dip Bedside Urine Glucose Negative Bedside Urine Bilirubin - Negative Bedside Urine Ketone - Negative Urine Specific [place] 1.015 Bedside Urine Occult Blood ++ Bedside Urine pH 6.0 Bedside Urine Protein - Negative Bedside Urine Urobilinogen - Negative Bedside Urine Nitrite - Negative Bedside Urine Leukocytes + [address] scan - abdomen/pelvis: Radiologist's Impression: [address] [address] [address] Scan Report Signed Patient: Tsuhar Herron MR#: [id number] : 1980 Acct:[id number] Age/Sex: 44 / M Date of Service: 03/23/24 Loc: ED Accession Number: [id number] Procedure: CT abdomen pelvis w con Ordering Provider: Vic Palmer PA-C PROCEDURE: CT ABDOMEN PELVIS W CON INDICATIONS: LLQ pain TECHNIQUE: After the administration of intravenous contrast, axial sections acquired from the lung bases to the pubic symphysis. Coronal and sagittal reformats were performed. For radiation dose reduction, the following was used: automated exposure control, adjustment of mA and/or kV according to patient size. COMPARISON: [facility], CT, CT ABDOMEN PELVIS WO/W CON, 03/14/2020, 10:19. FINDINGS: Image quality: Diagnostic. Lower Chest: No significant findings. ABDOMEN: Liver: No solid mass. The liver is enlarged and demonstrates diffuse fatty liver infiltration. Gallbladder: A potential gallstone is seen, without additional CT findings of cholecystitis. Biliary ducts: No biliary dilation. Pancreas: No ductal dilation. Spleen: Size is within normal limits. Adrenal Glands: No adrenal nodules. Kidneys and Ureters: There is an oblong obstructing stone within the left proximal ureter, as seen on series 3, image 54 and on series 2, image 45, measuring 14 mm craniocaudal and measuring 600 Hounsfield units. There is associated moderate to prominent left-sided hydronephrosis. There is a nonobstructing left-sided kidney stone measuring 9 mm and 500 Hounsfield units. There is left-sided perinephric fat stranding. The right kidney is within normal limits. Stomach and Bowel: In this patient with this given history, scrutiny is given to the sigmoid colon. Negative for diverticulitis. Normal colonic caliber, without significant wall thickening. No dilated loops of small bowel are seen. A normal appendix is noted. Peritoneum: No abnormal intraperitoneal fluid. No free air. Ventral Wall: No significant ventral hernia. Abdominal Nodes: No retroperitoneal or mesenteric adenopathy by size criteria. Vessels: Aorta and inferior vena cava are normal in size. PELVIS: Pelvic Organs: Unremarkable. Bladder: No bladder wall thickening, accounting for underdistention. Pelvic Nodes: No enlarged lymph nodes. Miscellaneous: There is a minimal fat containing left inguinal hernia. Bones: No aggressive osseous abnormality. IMPRESSION: There is a 14 mm obstructing stone within the left proximal ureter, with associated left-sided obstructive findings. Nonobstructing left-sided kidney stone also seen. Negative for diverticulitis. Additional findings: Enlarged, fatty infiltrated liver Potential gallstone Normal appendix Minimal fat containing left inguinal hernia Dictated by: Nicola Ramirez M.D. on 03/23/2024 at 15:03 Approved by: Nicola Ramirez M.D. on 03/23/2024 at 15:07 [facility] Narrative Medical decision making narrative: ED course: This is a 44-year-old male presents emergency department due to a week history of left lower quadrant abdominal pain. CT abdomen and pelvis was ordered which showed a 14 mm obstructing stone in the left side. Also mild leukocytosis of 14.6. Creatinine and GFR within normal limits. Lactate profile within normal limits was well. Rocephin given here in the emergency department. The case was discussed with Urology who agree with the plan for outpatient management. Patient will follow up with the neurology or Dr. Gallagher, urologist here in [facility]. We will also be prescribed ciprofloxacin for possible UTI as UA was positive for leuks. Patient was given pain medications as well as nausea medications as well. Heart rate was initially noted to be elevated although patient has not been taking his beta priscila medications. Home medications ordered and given. CC: Left lower quadrant abdominal pain Complicating co-morbidities: History of hypertension Data collected from: Previous notes Medical records reviewed: Patient was last seen in the emergency department about 2 months ago due to elevated blood pressure. History of hypertension on metoprolol and lisinopril. Chest pain workup was negative. Patient was eventually discharged with a prescription for metoprolol as well as lisinopril. Differential considered, but not limited to: Infected stone, diverticulitis, kidney injury Exam documented above, pertinent findings include: Left lower quadrant abdominal pain Lab Test results independently reviewed as above. Pertinent findings: Leukocytosis, lactate and profile within normal limits, creatinine and GFR within normal limits Imaging studies independently reviewed: CT showed a 14 mm obstructing stone in the left Scores Used: None MIPS Elements: None Consultations: None Treatments: IV fluids, Rocephin, Toradol, morphine Re-evaluations: Patient's pain improved after treatment Discussion: Discussed plan with the patient was comfortable with the plan Diagnosis: Kidney stone Disposition: see below, along with detailed discharge instructions that have been reviewed with patient as well as indications for ED re-evaluation and additional outpatient follow up <Valerie Delcid, DO - Last Filed: 03/25/24 07:20> Lab Data Labs: Lab Results 03/23/24 03/23/24 03/23/24 Range/Units 14:30 14:47 16:40 WBC 14.6 H (4.5-11.0) X10^3/uL RBC 5.24 (4.5-5.9) X10^6/uL Hgb 15.0 (13.5-17.5) g/dL Hct 45.8 (41-53) % MCV 87.5 (80-100) fL MCH 28.7 (26-34) PG MCHC 32.8 (30-36) % RDW 14.2 (11.6-14.8) % Plt Count 278 (150-400) X10^3/uL Neut % (Auto) 75.1 H (50-75) % Lymph % (Auto) 14.6 L (25-40) % [place] % (Auto) 9.1 (3-14) % Eos % (Auto) 0.7 L (2-4) % Baso % (Auto) 0.5 (0-2) % Neut # (Auto) 48459 H (6718-0088) /uL Lymph # (Auto) 2100 (1235-7290) /uL [place] # (Auto) 1300 H (0-900) /uL Eos # (Auto) 100 (0-450) /uL Baso # (Auto) 100 (0-100) /uL Sodium 132 L (137-145) mmol/L Potassium 4.1 (3.4-5.1) mmol/L Chloride 101 (98-107) mmol/L Carbon Dioxide 21 L (22-32) mmol/L BUN 15 (9-20) mg/dL Creatinine 1.02 (0.66-1.25) mg/dL Estimated GFR > 60 (>60) mL/min BUN/Creatinine Ratio 14.7 (6-22) Glucose 188 H (70-100) mg/dL Lactate 1.6 (0.7-2.1) mmol/L Calcium 8.7 (8.4-10.2) mg/dL Total Bilirubin 0.9 (0.2-1.3) mg/dL AST 26 (17-59) IU/L ALT 25 (<50) IU/L Alkaline Phosphatase 94 (38-126) U/L Total Protein 7.2 (6.3-8.2) g/dL Albumin 4.1 (3.5-5.0) g/dL Globulin 3.1 (1.7-4.1) g/dL Albumin/Globulin Ratio 1.3 (1.0-2.8) Lipase 36 (23-300) U/L Procalcitonin 0.136 (<0.5) ng/mL Urine RBC 0-1/hpf (0-5/HPF) Urine WBC 1-5/hpf (0-5/HPF) Ur Squamous Epith Cells 0-1 /hpf (0-5/HPF) Urine Bacteria Few (2-10) H (None) Ur Culture Indicated? Specimen cultured Vol Urine Centrifuged 10ml (spun) Point of care testing: Urine Dip Bedside Urine Glucose Negative Bedside Urine Bilirubin - Negative Bedside Urine Ketone - Negative Urine Specific [place] 1.015 Bedside Urine Occult Blood ++ Bedside Urine pH 6.0 Bedside Urine Protein - Negative Bedside Urine Urobilinogen - Negative Bedside Urine Nitrite - Negative Bedside Urine Leukocytes + 70 Esterase Discharge Plan Departure Patient Disposition: Home Clinical Impression: Kidney stone Instructions: DI for Kidney Stones Activity Restrictions/Additional Instructions: Thank you for coming to the [facility] Emergency Department today. As we discussed you has a very large kidney stone on the left side. You may follow up with neurology Dr. Gallagher, our local urologist, for treatment. Please take the antibiotics as prescribed. Please call him on Monday to establish an appointment. Please return to the emergency department if you develop any fevers, new or worsening pain, or any other concerning signs or symptoms. I hope you feel better soon. Please follow up with your primary care provider within a week if your symptoms continue. If you do not have a primary care provider please contact the [facility] Resource line at [phone]. They will ask some questions about your medical history and help you get set up with a provider in the community. Prescriptions: New ciprofloxacin HCl 500 mg tablet 500 mg PO BID Qty: 14 0RF oxycodone 5 mg capsule 5 mg PO Q6H PRN (Reason: pain) Qty: 20 0RF ondansetron 4 mg tablet,disintegrating 4 mg PO Q8H PRN (Reason: nausea and vomiting) Qty: 20 0RF No Action ondansetron 4 mg tablet,disintegrating 4 mg PO TID-QID PRN (Reason: nausea and vomiting) Qty: 10 0RF atenolol 50 mg tablet 50 mg PO DAILY Qty: 30 0RF metoprolol tartrate 50 mg tablet 50 mg PO BID Qty: 60 2RF metoprolol tartrate 50 mg tablet 50 mg PO BID Qty: 60 0RF lisinopril 20 mg tablet 20 mg PO BID Qty: 60 0RF Referrals: [facility] [Provider Group] (w/ Dr. Iglesias of urology for 14mm stone ) Miscellaneous,Doctor, [Primary Care Provider] - Bennett Gallagher MD [Physician] - (f/u 14 mm stone, thank you! ) Stand Alone Forms: Patient Portal/API ED Sign-out <Valerie Delcid DO - Last Filed: 03/25/24 07:20> Cosign ED Attending Jazmínature Attestation: I was immediately available in the department for consultation. Case was discussed vitals labs and imaging were all reviewed. Patient nontoxic does not appear to be septic, we will cover with antibiotics for potential infection in the urine with plan for outpatient follow-up with Urology for lithotripsy. Discussed return precautions.
--- NOTE | 2024-03-23 14:36 | DI.CT.S_ITS ---
PROCEDURE: CT ABDOMEN PELVIS W CON INDICATIONS: LLQ pain TECHNIQUE: After the administration of intravenous contrast, axial sections acquired from the lung bases to the pubic symphysis. Coronal and sagittal reformats were performed. For radiation dose reduction, the following was used: automated exposure control, adjustment of mA and/or kV according to patient size. COMPARISON: [facility], CT, CT ABDOMEN PELVIS WO/W CON, 03/14/2020, 10:19. FINDINGS: Image quality: Diagnostic. Lower Chest: No significant findings. ABDOMEN: Liver: No solid mass. The liver is enlarged and demonstrates diffuse fatty liver infiltration. Gallbladder: A potential gallstone is seen, without additional CT findings of cholecystitis. Biliary ducts: No biliary dilation. Pancreas: No ductal dilation. Spleen: Size is within normal limits. Adrenal Glands: No adrenal nodules. Kidneys and Ureters: There is an oblong obstructing stone within the left proximal ureter, as seen on series 3, image 54 and on series 2, image 45, measuring 14 mm craniocaudal and measuring 600 Hounsfield units. There is associated moderate to prominent left-sided hydronephrosis. There is a nonobstructing left-sided kidney stone measuring 9 mm and 500 Hounsfield units. There is left-sided perinephric fat stranding. The right kidney is within normal limits. Stomach and Bowel: In this patient with this given history, scrutiny is given to the sigmoid colon. Negative for diverticulitis. Normal colonic caliber, without significant wall thickening. No dilated loops of small bowel are seen. A normal appendix is noted. Peritoneum: No abnormal intraperitoneal fluid. No free air. Ventral Wall: No significant ventral hernia. Abdominal Nodes: No retroperitoneal or mesenteric adenopathy by size criteria. Vessels: Aorta and inferior vena cava are normal in size. PELVIS: Pelvic Organs: Unremarkable. Bladder: No bladder wall thickening, accounting for underdistention. Pelvic Nodes: No enlarged lymph nodes. Miscellaneous: There is a minimal fat containing left inguinal hernia. Bones: No aggressive osseous abnormality. IMPRESSION: There is a 14 mm obstructing stone within the left proximal ureter, with associated left-sided obstructive findings. Nonobstructing left-sided kidney stone also seen. Negative for diverticulitis. Additional findings: Enlarged, fatty infiltrated liver Potential gallstone Normal appendix Minimal fat containing left inguinal hernia Dictated by: Nicola Ramirez M.D. on 03/23/2024 at 15:03 Approved by: Nicola Ramirez M.D. on 03/23/2024 at 15:07
[2024-03-23 14:40] LABS: Add Manual Diff / Slide Review NO; Basophils Absolute Auto 100 /uL (0-100); Basophils Percent Auto 0.5 % (0-2); Eosinophils Absolute Auto 100 /uL (0-450); Eosinophils Percent Auto 0.7 % (2-4); Hematocrit 45.8 % (41-53); Lymphocytes Absolute Auto 2100 /uL (1100-4500); Lymphocytes Percent Auto 14.6 % (25-40); Mean Corpuscular HGB Conc 32.8 % (30-36); Mean Corpuscular Hemoglobin 28.7 PG (26-34); Mean Corpuscular Volume 87.5 fL (80-100); Monocytes Absolute Auto 1300 /uL (0-900); Monocytes Percent Auto 9.1 % (3-14); Neutrophils Absolute Auto 10900 /uL (1500-7000); Neutrophils Percent Auto 75.1 % (50-75); Platelet Count 278 X10^3/uL (150-400); Red Blood Cell Count 5.24 X10^6/uL (4.5-5.9); Red Cell Distribution Width 14.2 % (11.6-14.8); White Blood Cell Count 14.6 X10^3/uL (4.5-11.0)
[2024-03-23] MEDS: METOPROLOL IR 25 MG TABLET 50 MG PO (14:47)
[2024-03-23] MEDS: ONDANSETRON 4 MG/2 ML INJ IV (14:48)
[2024-03-23 15:00] LABS: Urine Volume 10mL (spun)
[2024-03-23 15:02] LABS: RBC Urine 0-1/HPF (0-5/HPF); WBC Urine 1-5/HPF (0-5/HPF)
[2024-03-23 15:02] LABS: Alanine Aminotransferase 25 IU/L (<50); Albumin 4.1 g/dL (3.5-5.0); Albumin Globulin Ratio 1.3 (1.0-2.8); Alkaline Phosphatase 94 U/L (38-126); BUN Creatinine Ratio 14.7 (6-22); Bilirubin Total 0.9 mg/dL (0.2-1.3); Blood Urea Nitrogen 15 mg/dL (9-20); Calcium 8.7 mg/dL (8.4-10.2); Carbon Dioxide 21 mmol/L (22-32); Chloride 101 mmol/L (98-107); Estimated Glomerular Filt Rate > 60 mL/min (>60); Globulin 3.1 g/dL (1.7-4.1); Glucose 188 mg/dL (70-100); Lipase 36 U/L (23-300); Sodium 132 mmol/L (137-145); Total Protein 7.2 g/dL (6.3-8.2)
[2024-03-23 15:03] LABS: Bacteria Urine Few (2-10); Culture Indicated Urine Specimen Cultured; Squamous Epithelial Cell Urine 0-1 /HPF (0-5/HPF)
[2024-03-23 15:09] LABS: Aspartate Aminotransferase 26 IU/L (17-59); HEMOLYSIS 74 (0-50); Potassium 4.1 mmol/L (3.4-5.1)
[2024-03-23] MEDS: MORPHINE 4 MG/ML INJ IV (15:11)
[2024-03-23 16:41] LABS: Lactate (Lactic Acid) 1.6 mmol/L (0.7-2.1)
[2024-03-23] MEDS: KETOROLAC 30 MG/ML VIAL 15 MG IV (16:49)
[2024-03-23] MEDS: cefTRIAXone 1,000 MG in SODIUM CHLORIDE 0.9% 100 ML 200 MG IV (16:49)
[2024-03-23] MEDS: SODIUM CHLORIDE 0.9% 1,000 ML 1000 ML IV (16:50)
[2024-03-23 17:34] LABS: Procalcitonin 0.136 ng/mL (<0.5)
== END 2024-03-23 18:38 | disposition home or self-care (01) ==
PROVIDERS: Emergency Medicine; Emergency Provider Physician Assistant Medical
DX: N20.0 Calculus of kidney (principal); Z87.442 Personal history of urinary calculi
CPT/HCPCS: 36415; 74177; 80053; 81003; 81015; 83605; 83690; 84145; 85025; 87040; 87086; 96365; 96375; 99284; J0696; J1885; J2270; J2405

== ENCOUNTER 2024-03-30 19:28 | Emergency (ER) | payer SELFPAY ==
[2024-03-30] VITALS (13 sets, daily range): BP systolic 132–232; BP diastolic 103–131; PULSE 80–109; RESP 16–19; TEMP 36.3; O2SAT 95–98; BMI 39.5
[2024-03-30] MEDS: HYDROMORPHONE 0.5 MG INJ IV (19:56)
[2024-03-30] MEDS: METOPROLOL ER 25 MG TABLET PO (19:57)
[2024-03-30] MEDS: ONDANSETRON 4 MG/2 ML INJ IV (19:58)
[2024-03-30 20:00] LABS: Add Manual Diff / Slide Review NO; Basophils Absolute Auto 100 /uL (0-100); Basophils Percent Auto 0.8 % (0-2); Eosinophils Absolute Auto 200 /uL (0-450); Eosinophils Percent Auto 1.5 % (2-4); Hematocrit 46.3 % (41-53); Hemoglobin 15.4 g/dL (13.5-17.5); Lymphocytes Absolute Auto 2900 /uL (1100-4500); Lymphocytes Percent Auto 26.4 % (25-40); Mean Corpuscular HGB Conc 33.4 % (30-36); Mean Corpuscular Hemoglobin 28.6 PG (26-34); Mean Corpuscular Volume 85.6 fL (80-100); Monocytes Absolute Auto 400 /uL (0-900); Monocytes Percent Auto 3.7 % (3-14); Neutrophils Absolute Auto 7500 /uL (1500-7000); Neutrophils Percent Auto 67.6 % (50-75); Platelet Count 448 X10^3/uL (150-400); Red Blood Cell Count 5.41 X10^6/uL (4.5-5.9); Red Cell Distribution Width 13.7 % (11.6-14.8)
--- NOTE | 2024-03-30 20:09 | ED_ITS ---
HPI - Recheck/Abnormal Lab/Rx General Chief Complaint: Recheck/Abnormal Lab/Rx Stated Complaint: kidney stone Time Seen by Provider: 03/30/24 19:41 Source: patient Mode of arrival: Ambulatory History of Present Illness HPI narrative: 44-year-old male with left-sided flank pain ongoing, seen here 03/23/[address] diagnosis 14 mm sized left ureteral stone, unfortunately there is only single urologist in our community who is recently out with illness, he is taking oral antibiotics ciprofloxacin prophylaxis, no fevers or chills, was awaiting outpatient referral for [facility] urology treatment, no referral information available so far, increasing left-sided flank pain, having run out of his pain medications. He also ran out of his metoprolol, has elevated blood pressures. He denies chest pain or shortness of breath. He has no nausea or vomiting or diarrhea. Related Data Previous Rx's Medication Instructions Recorded atenolol 50 mg tablet 50 mg PO DAILY #30 tabs 12/10/20 ondansetron 4 mg disintegrating 4 mg PO TID-QID PRN nausea and 12/10/20 tablet vomiting #10 tabs metoprolol tartrate 50 mg tablet 50 mg PO BID #60 tabs 09/24/22 lisinopril 20 mg tablet 20 mg PO BID #60 tabs 01/23/24 metoprolol tartrate 50 mg tablet 50 mg PO BID #60 tabs 01/23/24 ciprofloxacin HCl 500 mg tablet 500 mg PO BID #14 tabs 03/23/24 ondansetron 4 mg disintegrating 4 mg PO Q8H PRN nausea and 03/23/24 tablet vomiting #20 tabs oxycodone 5 mg capsule 5 mg PO Q6H PRN pain #20 caps 03/23/24 naproxen 500 mg tablet 500 mg PO BID 14 days #28 tabs 03/30/24 oxycodone-acetaminophen 10 mg-325 1 tab PO Q6H PRN pain #20 tabs 03/30/24 mg tablet tamsulosin 0.4 mg capsule 0.4 mg PO DAILY 14 days #14 caps 03/30/24 Allergies Allergy/AdvReac Type Severity Reaction Status Date / Time Penicillins Allergy Intermediate Childhood Verified 03/30/24 19:37 reaction Review of Systems Review of Systems Narrative: see HPI Patient History Medical History (Updated 03/30/24 @ 20:49 by Gio Wong MD) Hypertension Surgical History No pertinent past surgical history Social History Smoking Status: Current every day smoker Smoking Status: Current every day smoker tobacco type: cigarettes alcohol intake frequency: holidays/special occasions only Substance Use Type: marijuana Exam Narrative Exam Narrative: GENERAL: Well-developed patient, in moderate distress due to left flank pain. HEAD: Atraumatic. Normocephalic. EYES: Pupils equal round and reactive. Extraocular motions intact. No scleral icterus. No injection or drainage. ENT: Nose without bleeding, purulent drainage. Throat without erythema, tonsillar hypertrophy or exudate. Airway patent. NECK: Trachea midline. Non tender CARDIOVASCULAR: Regular rate and rhythm without murmurs, gallops, or rubs. RESPIRATORY: Clear to auscultation. Breath sounds equal bilaterally. No wheezes, rales, or rhonchi. GASTROINTESTINAL: Abdomen soft, non-tender, nondistended. EXTREMITIES: No edema or joint tenderness. BACK: Nontender without deformity or crepitance. No flank tenderness. NEURO: AOx3. Nonfocal gross motor exam SKIN: No rash or erythema of visible areas Initial Vital Signs Initial Vital Signs: Vital Signs Pulse Rate 109 H 03/30/24 19:35 Blood Pressure 223/112 H 03/30/24 19:35 Pulse Oximetry 98 03/30/24 19:35 Course Orders Ordered: ED Orders 03/30/24 19:50 Complete Blood Count AUTO DIFF Stat Comprehensive Metabolic Panel Stat Lactate (Lactic Acid) Stat Lipase Stat 03/30/24 22:41 Urinalysis and Microscopic Stat Urine Culture Stat Discontinued Medications Hydromorphone HCl (Hydromorphone 0.5 Mg Inj) 0.5 mg IV NOW ONE Stop: 03/30/24 19:43 Last Admin: 03/30/24 19:56 Dose: 0.5 mg Documented By: KEITH Ketorolac Tromethamine (Ketorolac 30 Mg/Ml Vial) 15 mg IV NOW ONE Stop: 03/30/24 20:39 Last Admin: 03/30/24 21:11 Dose: 15 mg Documented By: KEITH Metoprolol Succinate (Metoprolol Er 25 Mg Tablet) 25 mg PO NOW ONE Stop: 03/30/24 19:43 Last Admin: 03/30/24 19:57 Dose: 25 mg Documented By: KEITH Ondansetron HCl (Ondansetron 4 Mg/2 Ml Inj) 4 mg IV NOW ONE Stop: 03/30/24 19:43 Last Admin: 03/30/24 19:58 Dose: 4 mg Documented By: KEITH Ondansetron HCl (Ondansetron 4 Mg/2 Ml Inj) 4 mg IV NOW PRN PRN Reason: Nausea And Vomiting Ondansetron HCl (Ondansetron 4 Mg Odt) 4 mg PO NOW PRN PRN Reason: Nausea And Vomiting Oxycodone HCl (Oxycodone Ir 5 Mg Tablet) 10 mg PO NOW ONE Stop: 03/30/24 22:03 Last Admin: 03/30/24 22:12 Dose: 10 mg Documented By: KEITH Oxycodone/Acetaminophen (Oxycodone/Apap 5/325 Prepack) 1 bottle MISC DIRECTED ONE Stop: 03/30/24 22:01 Last Admin: 03/30/24 22:11 Dose: 1 bottle Documented By: KEITH Tamsulosin HCl (Tamsulosin 0.4 Mg Capsule) 0.4 mg PO NOW ONE Stop: 03/30/24 22:01 Last Admin: 03/30/24 22:11 Dose: 0.4 mg Documented By: KEITH Vital Signs Vital signs: Vital Signs - 8 hr 03/30/24 19:35 03/30/24 19:37 03/30/24 19:57 Temperature 97.3 F L Pulse Rate 109 H 109 H 105 H Respiratory Rate 19 Blood Pressure 223/112 H 223/112 H 223/112 H Pulse Oximetry 98 97 Oxygen Delivery Method Room Air 03/30/24 20:00 03/30/24 20:02 03/30/24 20:27 Temperature Pulse Rate 104 H 108 H 102 H Respiratory Rate Blood Pressure 218/107 H 219/107 H 132/109 H Pulse Oximetry 97 98 Oxygen Delivery Method 03/30/24 20:30 03/30/24 20:38 03/30/24 21:00 Temperature Pulse Rate 105 H 104 H 96 H Respiratory Rate 16 Blood Pressure 232/109 H 217/104 H 227/107 H Pulse Oximetry 95 95 97 Oxygen Delivery Method Room Air 03/30/24 21:31 03/30/24 22:00 03/30/24 22:30 Temperature Pulse Rate 86 80 82 Respiratory Rate 18 18 Blood Pressure 210/103 H 206/114 H 218/131 H Pulse Oximetry 97 96 97 Oxygen Delivery Method Room Air Room Air 03/30/24 22:50 Temperature Pulse Rate 83 Respiratory Rate 16 Blood Pressure 198/107 H Pulse Oximetry 98 Oxygen Delivery Method Room Air MDM - Recheck/Abnormal Lab/Rx Lab Data Attestation: I reviewed the patient's lab results. 03/30/24 19:50 03/30/24 19:50 Labs: Lab Results 03/30/24 03/30/24 Range/Units 19:50 22:41 WBC 11.0 (4.5-11.0) X10^3/uL RBC 5.41 (4.5-5.9) X10^6/uL Hgb 15.4 (13.5-17.5) g/dL Hct 46.3 (41-53) % MCV 85.6 (80-100) fL MCH 28.6 (26-34) PG MCHC 33.4 (30-36) % RDW 13.7 (11.6-14.8) % Plt Count 448 H (150-400) X10^3/uL Neut % (Auto) 67.6 (50-75) % Lymph % (Auto) 26.4 (25-40) % [place] % (Auto) 3.7 (3-14) % Eos % (Auto) 1.5 L (2-4) % Baso % (Auto) 0.8 (0-2) % Neut # (Auto) 7500 H (4438-4849) /uL Lymph # (Auto) 2900 (5006-1966) /uL Larue # (Auto) 400 (0-900) /uL Eos # (Auto) 200 (0-450) /uL Baso # (Auto) 100 (0-100) /uL Sodium 139 (137-145) mmol/L Potassium 3.6 (3.4-5.1) mmol/L Chloride 104 (98-107) mmol/L Carbon Dioxide 24 (22-32) mmol/L BUN 15 (9-20) mg/dL Creatinine 1.09 (0.66-1.25) mg/dL Estimated GFR > 60 (>60) mL/min BUN/Creatinine Ratio 13.8 (6-22) Glucose 190 H (70-100) mg/dL Lactate 2.1 (0.7-2.1) mmol/L Calcium 9.1 (8.4-10.2) mg/dL Total Bilirubin 0.5 (0.2-1.3) mg/dL AST 31 (17-59) IU/L ALT 54 H (<50) IU/L Alkaline Phosphatase 103 (38-126) U/L Total Protein 7.5 (6.3-8.2) g/dL Albumin 4.2 (3.5-5.0) g/dL Globulin 3.3 (1.7-4.1) g/dL Albumin/Globulin Ratio 1.3 (1.0-2.8) Lipase 48 (23-300) U/L Urine Color Yellow Urine Appearance Clear Urine pH 6.0 (4.5-8.0) Ur Specific [place] 1.025 (1.000-1.035) Urine Protein Negative (Negative) Urine Glucose (UA) Negative (Negative) g/dL Urine Ketones Negative (NEGATIVE) Urine Occult Blood Trace-intact (Negative) Urine Nitrate Negative (Negative) Urine Bilirubin Negative (NEGATIVE) Urine Urobilinogen 0.2 (0.2) E.U./dL Ur Leukocyte Esterase 1+ H (NEGATIVE) Urine RBC 0-1/hpf (0-5/HPF) Urine WBC 5-10/hpf H (0-5/HPF) Ur Squamous Epith Cells 0-1 /hpf (0-5/HPF) Urine Bacteria Few (2-10) H (None) Urine Trichomonas 1-5/hpf H (None Seen) Ur Culture Indicated? Specimen cultured Vol Urine Centrifuged 10ml (spun) MDM Narrative Medical decision making narrative: 44-year-old male ongoing left flank pain with recent diagnosis 03/23/2024 CT scanning showing 14 mm proximal left ureteral stone, awaiting outpatient Urology follow up, lack of local urologists coverage, still afebrile, sirs screen negative, however has really difficult to control pain. IV Dilaudid/Zofran, IV Toradol. Repeat labs pending. We will review prior recent scan, we will hold on repeat scanning for now. Consider urology consult/transfer for possible ureteral stenting or more definitive stone removal procedure. Keep NPO for now. Records review. CT abdomen and pelvis study from recent ED visit 03/23/2024. CT abdomen and pelvis with IV contrast. Impressions: ?There is a 14-mm obstructing stone within the left proximal ureter, with associated left-sided obstructive findings. Nonobstructing left sided kidney stone also seen. Negative for diverticulitis.? See radiology report. 2139, case discussed with Urology Dr. Collado at [facility], unrelenting pain, very large proximal stone, may need ureteral stenting or other definitive stone removal procedure, already receiving IV parenteral opiates and IV Toradol, still with pain, consider transfer for definitive treatment. We will call [facility] regarding possible transfer, or other Urology capable facilities. 2199, case discussed with Urology at [facility], Dr. Brizuela, who feels that patient is hemodynamically stable, has been taking 5 mg strength oxycodone that can be increased to 10 mg strength, has not seem to be taking any NSAIDs that can be added, also seems to not be taking Flomax medication that can be added. He advises a trial of increased analgesic and expulsive therapy as above, with close follow up in their group for likely ureteral stenting. Advised to call their office at [phone] Brizuela also took patient name and date of information to contact patient as well, and relayed to their front office assistant personnel. Patient symptoms improved, seems amenable to this outpatient plan and close follow up with [facility]. He called for a ride home. Prescription sent to his pharmacy. Return precautions discussed. Stable, improved. Critical Care Time Critical Care Time Critical Care Time: Yes Total Critical Care Time: 31 Attestation: The high probability of a clinically significant, sudden or life threatening deterioration of the [genitourinary, abdominopelvic, gastrointestinal] system(s) required my full and direct attention, intervention and personal management. The aggregate critical care time was [31] minutes. This time is in addition to time spent performing reported procedures but includes the following: [x] Data Review and interpretation [x] Patient assessment and monitoring of vital signs [x] Documentation [x] Medication orders and management Discharge Plan Departure Patient Disposition: Home Clinical Impression: Left flank pain, Calculus of left ureter Activity Restrictions/Additional Instructions: Persisting left-sided flank and abdominal pain, known 14 mm proximal left ureter stone from imaging study here 03/23/24, taking oxycodone 5 mg strength pain medications, with persisting pain, awaiting outpatient Urology consultation for possible stone removal or stenting procedure but no established appointment at this time. Worsening pain prompted revisit tonight, no fever. Lab testing unremarkable, normal renal function. Not obviously infected. Case was discussed with Urology Dr. Brizuela at [facility], who agreed with need for close follow up, had suggestions for better pain control while awaiting close follow up for possible surgical intervention. He suggested increased dose of your oxycodone from 5 mg to 10 mg strength, new prescription sent to your pharmacy. Addition of anti-inflammatory pain medication, naproxen prescription sent to your pharmacy. Also consider tamsulosin to help expel the stone if we will be movable, prescription sent to your pharmacy. No obvious infection for now, Dr. Brizuela suggested no further antibiotics at this time. Dr. Brizuela took your name and date of information, to contact you Monday morning. His contact information also provided on discharge instructions, to call his office to coordinate close follow up visit there for anticipated surgical intervention of this large left ureteral stone. Return earlier if any change worsening symptoms or any concerns prior Prescriptions: New oxycodone-acetaminophen 10-325 mg tablet 1 tab PO Q6H PRN (Reason: pain) Qty: 20 0RF tamsulosin 0.4 mg capsule 0.4 mg PO DAILY 14 Days Qty: 14 0RF naproxen 500 mg tablet 500 mg PO BID 14 Days Qty: 28 0RF No Action ondansetron 4 mg tablet,disintegrating 4 mg PO TID-QID PRN (Reason: nausea and vomiting) Qty: 10 0RF atenolol 50 mg tablet 50 mg PO DAILY Qty: 30 0RF metoprolol tartrate 50 mg tablet 50 mg PO BID Qty: 60 2RF metoprolol tartrate 50 mg tablet 50 mg PO BID Qty: 60 0RF lisinopril 20 mg tablet 20 mg PO BID Qty: 60 0RF ciprofloxacin HCl 500 mg tablet 500 mg PO BID Qty: 14 0RF oxycodone 5 mg capsule 5 mg PO Q6H PRN (Reason: pain) Qty: 20 0RF ondansetron 4 mg tablet,disintegrating 4 mg PO Q8H PRN (Reason: nausea and vomiting) Qty: 20 0RF Referrals: Nikolay Brizuela MD [Non-Staff] - Miscellaneous,MD Julien [Primary Care Provider] - Stand Alone Forms: Patient Portal/API
[2024-03-30 20:10] LABS: Alanine Aminotransferase 54 IU/L (<50); Albumin 4.2 g/dL (3.5-5.0); Albumin Globulin Ratio 1.3 (1.0-2.8); Alkaline Phosphatase 103 U/L (38-126); Aspartate Aminotransferase 31 IU/L (17-59); BUN Creatinine Ratio 13.8 (6-22); Bilirubin Total 0.5 mg/dL (0.2-1.3); Blood Urea Nitrogen 15 mg/dL (9-20); Calcium 9.1 mg/dL (8.4-10.2); Carbon Dioxide 24 mmol/L (22-32); Chloride 104 mmol/L (98-107); Estimated Glomerular Filt Rate > 60 mL/min (>60); Globulin 3.3 g/dL (1.7-4.1); Glucose 190 mg/dL (70-100); HEMOLYSIS 33 (0-50); Lipase 48 U/L (23-300); Potassium 3.6 mmol/L (3.4-5.1); Sodium 139 mmol/L (137-145); Total Protein 7.5 g/dL (6.3-8.2)
[2024-03-30 20:40] LABS: Lactate (Lactic Acid) 2.1 mmol/L (0.7-2.1)
[2024-03-30] MEDS: KETOROLAC 30 MG/ML VIAL 15 MG IV (21:11)
[2024-03-30 21:52] LABS: Reflexed Lactate in 2 Hours Y
[2024-03-30] MEDS: TAMSULOSIN 0.4 MG CAPSULE PO (22:11)
[2024-03-30] MEDS: OXYCODONE/APAP 5/325 PREPACK 1 BOTTLE MISC (22:11)
[2024-03-30] MEDS: OXYCODONE IR 5 MG TABLET 10 MG PO (22:12)
[2024-03-30 22:48] LABS: Appearance Urine UA CLEAR; Bilirubin Urine UA NEGATIVE (NEGATIVE); Color Urine UA YELLOW; Glucose Urine UA NEGATIVE (Negative); Ketones Urine UA NEGATIVE (NEGATIVE); Leukocyte Esterase Urine UA 1+ (NEGATIVE); Nitrite Urine UA NEGATIVE (Negative); Occult Blood Urine UA TRACE-INTACT (Negative); Protein Urine UA NEGATIVE (Negative); Specific Gravity Urine UA 1.025 (1.000-1.035); Urobilinogen Urine UA 0.2 E.U./dL (0.2)
[2024-03-30 23:00] LABS: Bacteria Urine Few (2-10); RBC Urine 0-1/HPF (0-5/HPF); Squamous Epithelial Cell Urine 0-1 /HPF (0-5/HPF); Trichomonas Urine 1-5/HPF (None Seen); Urine Volume 10mL (spun); WBC Urine 5-10/HPF (0-5/HPF)
[2024-03-30 23:01] LABS: Culture Indicated Urine Specimen Cultured
== END 2024-03-30 22:56 | disposition home or self-care (01) ==
PROVIDERS: Emergency Provider Emergency Medicine
DX: N20.1 Calculus of ureter (principal)
CPT/HCPCS: 36415; 80053; 81001; 83605; 83690; 85025; 87086; 96374; 96375; 99284; J1170; J1885; J2405

== ENCOUNTER 2024-04-05 14:22 | Observation (INO) | payer SELFPAY ==
[2024-04-05] VITALS (19 sets, daily range): BP systolic 92–206; BP diastolic 44–117; PULSE 67–91; RESP 11–20; TEMP 36.4–36.8; O2SAT 95–98; BMI 39.5
--- NOTE | 2024-04-05 | DI.RAD.S_ITS ---
PROCEDURE: XR ABDOMEN 1V INDICATIONS: cystoscopy w/ left ueteral stent TECHNIQUE: Left-sided intra-operative images acquired by the Urology service. COMPARISON: None. FINDINGS: Fluoroscopic guidance utilized for a left-sided nephroureteral stent placement. IMPRESSION: Fluoroscopic guidance utilized for a left-sided nephroureteral stent placement. Dictated by: Brian Man M.D. on 04/05/2024 at 20:20 Approved by: Brian Man M.D. on 04/05/2024 at 20:21
[2024-04-05 15:38] LABS: Add Manual Diff / Slide Review NO; Basophils Absolute Auto 0 /uL (0-100); Basophils Percent Auto 0.5 % (0-2); Eosinophils Absolute Auto 200 /uL (0-450); Eosinophils Percent Auto 1.8 % (2-4); Hematocrit 46.1 % (41-53); Hemoglobin 15.4 g/dL (13.5-17.5); Lymphocytes Absolute Auto 3000 /uL (1100-4500); Lymphocytes Percent Auto 35.2 % (25-40); Mean Corpuscular HGB Conc 33.5 % (30-36); Mean Corpuscular Hemoglobin 29.1 PG (26-34); Monocytes Absolute Auto 400 /uL (0-900); Monocytes Percent Auto 4.4 % (3-14); Neutrophils Absolute Auto 5000 /uL (1500-7000); Neutrophils Percent Auto 58.1 % (50-75); Platelet Count 380 X10^3/uL (150-400); White Blood Cell Count 8.6 X10^3/uL (4.5-11.0)
[2024-04-05] MEDS: KETOROLAC 30 MG/ML VIAL 15 MG IV (15:43)
--- NOTE | 2024-04-05 15:46 | PC.NURSE ---
Patient has a known 14mm kidney stone, he is here in the department for pain control and because he reports that the urologist in [place] has not returned his calls and he reports them telling him they have no idea who he is. Urologist office called him today while he was in the department and he has an appointment on Monday.
[2024-04-05 15:47] LABS: Alanine Aminotransferase 44 IU/L (<50); Albumin Globulin Ratio 1.3 (1.0-2.8); Alkaline Phosphatase 95 U/L (38-126); Aspartate Aminotransferase 30 IU/L (17-59); BUN Creatinine Ratio 16.2 (6-22); Bilirubin Total 0.5 mg/dL (0.2-1.3); Blood Urea Nitrogen 16 mg/dL (9-20); Calcium 8.8 mg/dL (8.4-10.2); Carbon Dioxide 26 mmol/L (22-32); Chloride 104 mmol/L (98-107); Estimated Glomerular Filt Rate > 60 mL/min (>60); Glucose 165 mg/dL (70-100); HEMOLYSIS < 15 (0-50); Sodium 139 mmol/L (137-145)
--- NOTE | 2024-04-05 16:14 | ED_ITS ---
HPI - Abdominal Pain General Chief Complaint: Urogenital-Male Stated Complaint: per pt kidney stone, severe pain Time Seen by Provider: 04/05/24 15:24 Source: patient Mode of arrival: Wheelchair History of Present Illness HPI narrative: 44-year-old male with flank pain ongoing, was seen by me last weekend, known to have 1.9 cm sized ureteral stone, case at that time had been discussed with urology on-call at [facility], who advised outpatient regimen of increased analgesic in addition of tamsulosin to help expel the stone, off antibiotics. Unfortunately patient has not been contacted by the office of Urology for Monday follow up as planned, has persisting flank pain. Here for further evaluation. Last meal small amount of putting and partial sandwich about noon today. Related Data Previous Rx's Medication Instructions Recorded atenolol 50 mg tablet 50 mg PO DAILY #30 tabs 12/10/20 ondansetron 4 mg disintegrating 4 mg PO TID-QID PRN nausea and 12/10/20 tablet vomiting #10 tabs metoprolol tartrate 50 mg tablet 50 mg PO BID #60 tabs 09/24/22 lisinopril 20 mg tablet 20 mg PO BID #60 tabs 01/23/24 metoprolol tartrate 50 mg tablet 50 mg PO BID #60 tabs 01/23/24 naproxen 500 mg tablet 500 mg PO BID 14 days #28 tabs 03/30/24 oxycodone-acetaminophen 10 mg-325 1 tab PO Q6H PRN pain #20 tabs 03/30/24 mg tablet phenazopyridine 200 mg tablet 200 mg PO TID PRN pain #9 tabs 04/05/24 tamsulosin 0.4 mg capsule 0.4 mg PO DAILY #30 caps 04/05/24 Allergies Allergy/AdvReac Type Severity Reaction Status Date / Time Penicillins Allergy Intermediate Childhood Verified 03/30/24 19:37 reaction Review of Systems Review of Systems Narrative: see HPI Patient History Medical History Hypertension Surgical History No pertinent past surgical history Social History household members: friend(s) Smoking Status: Current every day smoker alcohol intake: current Smoking Status: Current every day smoker tobacco type: cigarettes alcohol intake frequency: holidays/special occasions only Substance Use Type: marijuana Exam Initial Vital Signs Initial Vital Signs: Vital Signs Pulse Rate 90 04/05/24 14:35 Pulse Oximetry 98 04/05/24 14:35 Const General: cooperative [facility] Head: normocephalic and atraumatic Mouth: oral mucosae normal Eyes Eyelids: eyelids normal Conjunctivae: conjunctivae normal Sclera: sclerae normal EOM: EOM intact bilaterally Neck Neck: normal visual inspection and trachea midline Chest Chest: normal inspection of the chest Resp Effort & Inspection: normal respiratory effort, able to speak in complete sentences, no respiratory distress and no use of accessory muscles Auscultation: clear to auscultation bilaterally, no rales, no rhonchi and no wheezes Cardio Rate: regular rate Rhythm: regular rhythm GI Inspection: non-distended Palpation: soft, no hepatosplenomegaly, No guarding, No pulsatile mass and No tender Auscultation: normal bowel sounds Back/Spine/Pelvis Back: No CVA tenderness Cervical Spine: cervical ROM normal Skin General: no rashes or lesions noted and No jaundice Neuro General: patient alert and no focal motor deficits Speech: speech normal Extrem General: full ROM and no pedal edema Psych Mental Status: mental status grossly normal Attitude: cooperative Course Orders Ordered: ED Orders 04/05/24 15:20 CBC Auto Diff [Complete Blood Count AUTO DIFF] Stat CMP [Comprehensive Metabolic Panel] Stat 04/05/24 17:18 Urinalysis and Microscopic Stat Urine Culture Stat Discontinued Medications Acetaminophen (Acetaminophen 325 Mg Tablet) 650 mg PO NOW ONE Stop: 04/05/24 20:00 Fentanyl (Fentanyl 100 Mcg/2 Ml Inj) 0 mcg IV Q5MIN PRN PRN Reason: Pain, Severe (7-10) Hydralazine HCl (Hydralazine 20 Mg/Ml Vial) 10 mg IV NOW ONE Stop: 04/05/24 16:36 Last Admin: 04/05/24 16:49 Dose: 10 mg Documented By: SHERRILL Hydromorphone HCl (Hydromorphone 0.5 Mg Inj) 0.5 mg IV NOW ONE Stop: 04/05/24 16:36 Last Admin: 04/05/24 16:50 Dose: 0.5 mg Documented By: GW Hydromorphone HCl (Hydromorphone 1 Mg Inj) 0.5 mg IV Q2H PRN PRN Reason: Pain, Severe (7-10) Hydromorphone HCl (Hydromorphone 1 Mg Inj) 0 mg IV Q5MIN PRN PRN Reason: Pain, Mild (1-3) Lactated Ringer's (Lactated Ringers) 1,000 mls @ 100 mls/hr IV NOW ONE Stop: 04/06/24 04:33 Last Admin: 04/05/24 18:34 Dose: 100 mls/hr Documented By: JUSTICE Clindamycin Phosphate (Cleocin) 900 mg in 50 mls @ 50 mls/hr IV NOW ONE Stop: 04/05/24 20:21 Last Infusion: 04/05/24 19:19 Dose: Infused Documented By: Admin: 04/05/24 19:09 Dose: 50 mls/hr Documented By: KINZA Lactated Ringer's (Lactated Ringers) 1,000 mls @ 42 mls/hr IV CONT SEA Last Infusion: 04/05/24 20:09 Dose: Infused Documented By: Infusion: 04/05/24 20:09 Dose: Infused Documented By: Admin: 04/05/24 20:09 Dose: 42 mls/hr Documented By: Admin: 04/05/24 18:30 Dose: 42 mls/hr Documented By: JAZMIN Iopamidol (Iopamidol 30 Ml Vial) 10 ml INTRAURETH NOW ONE Stop: 04/05/24 19:25 Last Admin: 04/05/24 19:25 Dose: 10 ml Documented By: YANELIS Ketorolac Tromethamine (Ketorolac 30 Mg/Ml Vial) 15 mg IV NOW ONE Stop: 04/05/24 15:39 Last Admin: 04/05/24 15:43 Dose: 15 mg Documented By: SHERRILL Ondansetron HCl (Ondansetron 4 Mg/2 Ml Inj) 4 mg IV Q4H PRN PRN Reason: Nausea And Vomiting Ondansetron HCl (Ondansetron 4 Mg/2 Ml Inj) 4 mg IV NOW PRN PRN Reason: Nausea And Vomiting Oxycodone HCl (Oxycodone Ir 5 Mg Tablet) 5 mg PO PACUNOW PRN PRN Reason: Mild or moderate pain Oxycodone/Acetaminophen (Oxycodone/Acetaminophen 5/325 Tablet) 2 tab PO Q4H PRN PRN Reason: Pain, Moderate (4-6) Vital Signs Vital signs: Vital Signs - 8 hr 04/05/24 14:35 04/05/24 14:37 04/05/24 14:37 Temperature Pulse Rate 90 91 H Respiratory Rate Blood Pressure 206/103 H Pulse Oximetry 98 97 Oxygen Delivery Method 04/05/24 14:38 04/05/24 15:00 04/05/24 15:20 Temperature 98.0 F Pulse Rate 83 85 Respiratory Rate 18 Blood Pressure 206/103 H 178/111 H Pulse Oximetry 98 97 Oxygen Delivery Method Room Air 04/05/24 15:20 04/05/24 15:30 04/05/24 15:30 Temperature Pulse Rate 84 81 Respiratory Rate Blood Pressure 179/99 H Pulse Oximetry 97 96 Oxygen Delivery Method 04/05/24 15:59 04/05/24 16:00 04/05/24 16:00 Temperature Pulse Rate 67 67 Respiratory Rate Blood Pressure 188/117 H Pulse Oximetry 96 96 Oxygen Delivery Method 04/05/24 16:30 04/05/24 16:30 04/05/24 16:49 Temperature Pulse Rate 68 70 Respiratory Rate Blood Pressure 169/104 H 168/104 H Pulse Oximetry 96 Oxygen Delivery Method 04/05/24 17:00 04/05/24 17:00 04/05/24 17:22 Temperature Pulse Rate 80 79 Respiratory Rate Blood Pressure 162/107 H 162/107 H Pulse Oximetry 97 Oxygen Delivery Method 04/05/24 17:30 04/05/24 17:30 Temperature Pulse Rate 79 Respiratory Rate Blood Pressure 163/92 H Pulse Oximetry 96 Oxygen Delivery Method MDM - Abdominal Pain Lab Data Attestation: I reviewed the patient's lab results. 04/05/24 15:20 04/05/24 15:20 Labs: Lab Results 04/05/24 04/05/24 Range/Units 15:20 17:18 WBC 8.6 (4.5-11.0) X10^3/uL RBC 5.30 (4.5-5.9) X10^6/uL Hgb 15.4 (13.5-17.5) g/dL Hct 46.1 (41-53) % MCV 87.0 (80-100) fL MCH 29.1 (26-34) PG MCHC 33.5 (30-36) % RDW 14.0 (11.6-14.8) % Plt Count 380 (150-400) X10^3/uL Neut % (Auto) 58.1 (50-75) % Lymph % (Auto) 35.2 (25-40) % [place] % (Auto) 4.4 (3-14) % Eos % (Auto) 1.8 L (2-4) % Baso % (Auto) 0.5 (0-2) % Neut # (Auto) 5000 (2320-6453) /uL Lymph # (Auto) 3000 (0932-5071) /uL [place] # (Auto) 400 (0-900) /uL Eos # (Auto) 200 (0-450) /uL Baso # (Auto) 0 (0-100) /uL Sodium 139 (137-145) mmol/L Potassium 4.0 (3.4-5.1) mmol/L Chloride 104 (98-107) mmol/L Carbon Dioxide 26 (22-32) mmol/L BUN 16 (9-20) mg/dL Creatinine 0.99 (0.66-1.25) mg/dL Estimated GFR > 60 (>60) mL/min BUN/Creatinine Ratio 16.2 (6-22) Glucose 165 H (70-100) mg/dL Calcium 8.8 (8.4-10.2) mg/dL Total Bilirubin 0.5 (0.2-1.3) mg/dL AST 30 (17-59) IU/L ALT 44 (<50) IU/L Alkaline Phosphatase 95 (38-126) U/L Total Protein 7.0 (6.3-8.2) g/dL Albumin 4.0 (3.5-5.0) g/dL Globulin 3.0 (1.7-4.1) g/dL Albumin/Globulin Ratio 1.3 (1.0-2.8) Urine Color Yellow Urine Appearance Clear Urine pH 5.5 (4.5-8.0) Ur Specific [place] 1.010 (1.000-1.035) Urine Protein Negative (Negative) Urine Glucose (UA) Negative (Negative) g/dL Urine Ketones Negative (NEGATIVE) Urine Occult Blood Negative (Negative) Urine Nitrate Negative (Negative) Urine Bilirubin Negative (NEGATIVE) Urine Urobilinogen 0.2 (0.2) E.U./dL Ur Leukocyte Esterase Trace H (NEGATIVE) Urine RBC None seen (0-5/HPF) Urine WBC 1-5/hpf (0-5/HPF) Ur Squamous Epith Cells 0-1 /hpf (0-5/HPF) Urine Bacteria Few (2-10) H (None) Ur Culture Indicated? Specimen cultured Vol Urine Centrifuged 10ml (spun) MDM Narrative Medical decision making narrative: 44-year-old male with history of known large left-sided 1.9 cm stone, seen here over the weekend in follow up of previous evaluation CT showing presence of large stone, arrangements were reportedly to be made to be seen Monday at [facility], however patient says that he was not contacted, here for persisting pain symptoms. No fevers. No nausea or vomiting. Afebrile on triage, sirs screen negative. IV Dilaudid, repeat labs sent. We will contact urologist, as Dr. Dorantes is recently in OR placing ureteral stent today here. 1630, Case discussed with urology on-call Dr. Dorantes, patient last ate at noon now 4-1/2 hours ago, hold in ED, keep NPO, he will see after he concludes clinic soon, possible ureteral stent placement to OR with urology Dr Dorantes Critical Care Time Critical Care Time Critical Care Time: Yes Total Critical Care Time: 35 Attestation: The high probability of a clinically significant, sudden or life threatening deterioration of the [abdominopelvic, GI, , renal] system(s) required my full and direct attention, intervention and personal management. The aggregate critical care time was [35] minutes. This time is in addition to time spent performing reported procedures but includes the following: [x] Data Review and interpretation [x] Patient assessment and monitoring of vital signs [x] Documentation [x] Medication orders and management Discharge Plan Departure Patient Disposition: Admitted to Surgery Clinical Impression: Left flank pain, Left ureteral stone, Left sided abdominal pain Admit Date/Time: 04/05/24 18:13 Admit Provider: Jose Dorantes
[2024-04-05] MEDS: HYDRALAZINE 20 MG/ML VIAL 10 MG IV (16:49)
[2024-04-05] MEDS: HYDROMORPHONE 0.5 MG INJ IV (16:50)
[2024-04-05 17:29] LABS: Appearance Urine UA CLEAR; Bilirubin Urine UA NEGATIVE (NEGATIVE); Color Urine UA YELLOW; Glucose Urine UA NEGATIVE (Negative); Ketones Urine UA NEGATIVE (NEGATIVE); Leukocyte Esterase Urine UA TRACE (NEGATIVE); Nitrite Urine UA NEGATIVE (Negative); Occult Blood Urine UA NEGATIVE (Negative); Protein Urine UA NEGATIVE (Negative); Urobilinogen Urine UA 0.2 E.U./dL (0.2); pH Urine UA 5.5 (4.5-8.0)
[2024-04-05 17:36] LABS: Bacteria Urine Few (2-10); Culture Indicated Urine Specimen Cultured; RBC Urine None Seen (0-5/HPF); Squamous Epithelial Cell Urine 0-1 /HPF (0-5/HPF); Urine Volume 10mL (spun); WBC Urine 1-5/HPF (0-5/HPF)
--- NOTE | 2024-04-05 18:19 | PM.HP.1 ---
History of Present Illness History of Present Illness Chief complaint: per pt kidney stone, severe pain Narrative: 44 y/o M presents to ED for evaluation of severe and recurrent left flank pain. Briefly, he presented to ED on 23 Mar 2024 for evaluation of severe left flank pain, nausea and vomiting. His evaluation at that time was notable for AFVSS, WBC of 14.6, sCr of 1.02 and an unremarkable UA. He had a CT Abd/Pel that noted a 14mm left proximal ureterolith with resultant upstream moderate hydroureteronephrosis as well as a 9mm left lower pole calculus. He was discharged home on medical expulsion therapy and was supposed to get follow-up with [facility]. His pain continued to increase throughout the week and he had not yet received a call from the [facility] department, therefore, he presented to ED again for evaluation of worsening left flank pain and nausea. He was noted to have a WBC of 8.6, sCr of 0.99 and an unremarkable UA. [facility] Medical History Hypertension Surgical History No pertinent past surgical history Social History Smoking Status: Current every day smoker Meds Home Medications and Allergies Home Medications Medication Instructions Recorded Confirmed Type atenolol 50 mg tablet 50 mg PO DAILY #30 tabs 12/10/20 04/05/24 Rx ondansetron 4 mg disintegrating 4 mg PO TID-QID PRN nausea and 12/10/20 04/05/24 Rx tablet vomiting #10 tabs metoprolol tartrate 50 mg tablet 50 mg PO BID #60 tabs 09/24/22 04/05/24 Rx lisinopril 20 mg tablet 20 mg PO BID #60 tabs 01/23/24 04/05/24 Rx metoprolol tartrate 50 mg tablet 50 mg PO BID #60 tabs 01/23/24 Rx ciprofloxacin HCl 500 mg tablet 500 mg PO BID #14 tabs 03/23/24 Rx ondansetron 4 mg disintegrating 4 mg PO Q8H PRN nausea and 03/23/24 Rx tablet vomiting #20 tabs oxycodone 5 mg capsule 5 mg PO Q6H PRN pain #20 caps 03/23/24 Rx naproxen 500 mg tablet 500 mg PO BID 14 days #28 tabs 03/30/24 Rx oxycodone-acetaminophen 10 mg-325 1 tab PO Q6H PRN pain #20 tabs 03/30/24 04/05/24 Rx mg tablet tamsulosin 0.4 mg capsule 0.4 mg PO DAILY 14 days #14 caps 03/30/24 04/05/24 Rx Allergies Allergy/AdvReac Type Severity Reaction Status Date / Time Penicillins Allergy Intermediate Childhood Verified 03/30/24 19:37 reaction Review of Systems Review of Systems Narrative: CONSTITUTIONAL: Denies weight loss, fevers, chills. HEENT: Denies change in vision, hearing. RESP: Denies SOB, cough. CV: Denies palpations, CP. GI: Denies abodminal pain, vomiting, diarrhea. : Denies dysuria, hematuria, inability to void. MSK: Denies myalgia, joint pain. SKIN: Denies rash, pruritus. NEURO: Denies headache, syncope. PSYCH: Denies recent change in mood, anxiety, depression. Exam Vital Signs (past 8 hours): - 04/05/24 14:35 04/05/24 14:37 04/05/24 14:37 Temperature Pulse Rate 90 91 H Respiratory Rate Blood Pressure 206/103 H Pulse Oximetry 98 97 Oxygen Delivery Method 04/05/24 14:38 04/05/24 15:00 04/05/24 15:20 Temperature 98.0 F Pulse Rate 83 85 Respiratory Rate 18 Blood Pressure 206/103 H 178/111 H Pulse Oximetry 98 97 Oxygen Delivery Method Room Air 04/05/24 15:20 04/05/24 15:30 04/05/24 15:30 Temperature Pulse Rate 84 81 Respiratory Rate Blood Pressure 179/99 H Pulse Oximetry 97 96 Oxygen Delivery Method 04/05/24 15:59 04/05/24 16:00 04/05/24 16:00 Temperature Pulse Rate 67 67 Respiratory Rate Blood Pressure 188/117 H Pulse Oximetry 96 96 Oxygen Delivery Method 04/05/24 16:30 04/05/24 16:30 04/05/24 16:49 Temperature Pulse Rate 68 70 Respiratory Rate Blood Pressure 169/104 H 168/104 H Pulse Oximetry 96 Oxygen Delivery Method 04/05/24 17:00 04/05/24 17:00 04/05/24 17:22 Temperature Pulse Rate 80 79 Respiratory Rate Blood Pressure 162/107 H 162/107 H Pulse Oximetry 97 Oxygen Delivery Method 04/05/24 17:30 04/05/24 17:30 Temperature Pulse Rate 79 Respiratory Rate Blood Pressure 163/92 H Pulse Oximetry 96 Oxygen Delivery Method Oxygen Delivery Method Room Air Narrative Exam Narrative: GEN: Alert and oriented X3. No acute distress. Well-nourished. EYES: PERRLA, EOMI. HENT: Moist mucus membranes, no scleral icterus, normal neck ROM. RESP: Unlabored breathing, equal rise and fall of chest bilaterally, no cyanosis appreciated. CV: No peripheral edema, unremarkable heart rate. ABD: Soft, non-tender, non-distended, no palpable masses. : L CVAT, no R CVAT. EXT: No edema, clubbing or cyanosis. SKIN: No rashes or lesions. NEURO: No focal neurologic deficits, CN II-XII grossly intact. PSYCH: Cooperative, appropriate mood and affect. Objective Labs 04/05/24 15:20 04/05/24 15:20 Labs: Laboratory Results - last 24 hr 04/05/24 04/05/24 15:20 17:18 WBC 8.6 RBC 5.30 Hgb 15.4 Hct 46.1 MCV 87.0 MCH 29.1 MCHC 33.5 RDW 14.0 Plt Count 380 Neut % (Auto) 58.1 Lymph % (Auto) 35.2 [place] % (Auto) 4.4 Eos % (Auto) 1.8 L Baso % (Auto) 0.5 Neut # (Auto) 5000 Lymph # (Auto) 3000 [place] # (Auto) 400 Eos # (Auto) 200 Baso # (Auto) 0 Sodium 139 Potassium 4.0 Chloride 104 Carbon Dioxide 26 BUN 16 Creatinine 0.99 Estimated GFR > 60 BUN/Creatinine Ratio 16.2 Glucose 165 H Calcium 8.8 Total Bilirubin 0.5 AST 30 ALT 44 Alkaline Phosphatase 95 Total Protein 7.0 Albumin 4.0 Globulin 3.0 Albumin/Globulin Ratio 1.3 Urine Color Yellow Urine Appearance Clear Urine pH 5.5 Ur Specific [place] 1.010 Urine Protein Negative Urine Glucose (UA) Negative Urine Ketones Negative Urine Occult Blood Negative Urine Nitrate Negative Urine Bilirubin Negative Urine Urobilinogen 0.2 Ur Leukocyte Esterase Trace H Urine RBC None seen Urine WBC 1-5/hpf Ur Squamous Epith Cells 0-1 /hpf Urine Bacteria Few (2-10) H Ur Culture Indicated? Specimen cultured Vol Urine Centrifuged 10ml (spun) Assessment & Plan Assessment and plan (1) Left ureteral stone: Status: Acute Plan: 44 y/o M noted to have a 14mm left proximal ureterolith on 23 March 2024 who was discharged home on medical expulsion therapy and instructed to follow-up with [facility] was unable to secure outpatient Urology follow-up and presented to ED this evening for evaluation of recurrent left flank pain with nausea. Discussed treatment options to include continued medical expulsion therapy vs cystoscopy with left ureteral stent placement. Discussed risks of the procedure to include pain, bleeding, infection, injury to urethra/bladder/ureter, inability to access the ureter requiring discussion with Interventional Radiology regarding a possible ureteral stent placement in an antegrade fashion vs a possible nephroureteral stent and/or percutaneous nephrostomy tube, urinary tract infection, need for emergent open repair of bladder and/or ureter, need for multiple ureteroscopic interventions necessary to render the patient stone free. He indicated understanding and all of their questions were answered to their satisfaction. Time-Based Coding :: [TOTAL MINUTES] spent with patient and on the chart (including review of chart, obtaining history, exam, reviewing outside data, placing orders, documenting exam and treatment plan, and counseling patient) on [DATE].
[2024-04-05] MEDS: LACTATED RINGERS 1,000 ML 42 ML IV ×2 (18:30→20:09)
[2024-04-05] MEDS: LACTATED RINGERS 1,000 ML 100 ML IV (18:34)
[2024-04-05] MEDS: CLINDAMYCIN 900 MG/50 ML PIGGYBACK 50 MG IV (19:09)
[2024-04-05] MEDS: iopamidoL 30 ML VIAL 10 ML INTRAURETH (19:25)
--- NOTE | 2024-04-05 19:34 | SUR.OPER ---
Lithotomy on padded OR bed, head on pillow, arms secured on padded arm boards at <90 degrees abduction. Legs secured in padded yellow fins stirrups. Wedge placed behind pt torso.
--- NOTE | 2024-04-05 19:34 | PM.OP.1 ---
Procedure & Clinicians Procedure: Cystoscopy Left ureteral stent placement Intraoperative interpretation of fluoroscopic images, < 1 hour, all images saved to PACS Same procedure as scheduled: Yes Indications: 44 y/o M w/ a large left proximal ureterolith who continues to have issues with pain control. Surgeon: Jose Dorantes Click Yes if Unassisted: Yes Anesthesia Type: General Operative Notes Findings: Large left proximal ureterolith, large left lower pole nephrolith Specimen(s): none sent Estimated Blood Loss (mL): 1 Blood products transfused: none Procedure in detail: Patient was identified in the preoperative holding area and consent confirmed. He was then brought to the operating room where general anesthesia was induced.? He was then placed in the low lithotomy position. He was then prepped and draped in the usual sterile fashion. A surgical timeout was conducted and all were in agreement. Access to the bladder was obtained via a 21Fr cystoscope.? Complete cystoscopy was performed and no concerning masses or lesions were appreciated. Bilateral ureteral orifices were easily visualized and noted to be orthotopic in nature. The left ureteral orifice was easily visualized and a 0.035 sensor tip ureteral guidewire was advanced through the 5Fr ureteral catheter and into the left renal collecting system.? The ureteral guidewire was removed and a retrograde pyelogram was performed which noted mild left hydronephrosis.? The ureteral guidewire was readvanced through the ureteral catheter and into the left renal pelvis.? The ureteral catheter was then removed.? A 6Fr multi-length JJ ureteral stent without strings was then advanced over the ureteral guidewire and into the left renal collecting system.? Upon removal of the ureteral guidewire, a good curl was appreciated within the left renal pelvis upon fluoroscopy and visually within the bladder.? The bladder was then drained and the cystoscope was removed.? Anesthesia was reversed, he was extubated in the OR and transferred to the PACU in stable condition for recovery. Complications: none Post-operative Condition: stable Disposition: PACU Plan for aftercare: Discharge home from PACU. Will have him return to OR in 2-12 weeks for definitive stone management via a cystoscopy, left ureteroscopy, laser lithotripsy and left ureteral stent placement.
== END 2024-04-05 20:43 | disposition home or self-care (01) ==
LOC: ED 17:18 → AC 18:14
PROVIDERS: Admitting Provider Urology; Emergency Provider Emergency Medicine; Referring Provider Emergency Medicine; Visit Provider Urology
PROC: (CPT 52332; principal; 2024-04-05 19:00)
DX: N20.1 Calculus of ureter (principal)
CPT/HCPCS: 52332; 36415; 74018; 76000; 80053; 81001; 85025; 87086; 96374; 96375; 99284; G0378; J0330; J0360; J1100; J1170; J1885; J2250; J2405; J2704; J3010; Q9967

== ENCOUNTER 2024-04-23 18:31 | Emergency (ER) | payer SELFPAY ==
[2024-04-23 18:33] VITALS: BP 222/110; PULSE 96; RESP 15; TEMP 36.7; O2SAT 96; BMI 40.6
--- NOTE | 2024-04-23 18:41 | ED.MALEGU ---
HPI - Male Genitourinary General Chief complaint: Urogenital-Male Stated complaint: kidney pain Time Seen by Provider: 04/23/24 18:34 History of Present Illness HPI Narrative: 44-year-old male presents for left kidney pain. On 04/05/2024 patient underwent placement of left ureteral stent placement for 1.2 cm stone with poor pain control. Patient states that he initially was doing well after the procedure, but has begun to have irritation and pain in his left flank, and today he noticed some blood in his urine. He has been trying to schedule his follow up appointment with Urology, but Scheduling has been delayed due to insurance issues. Related Data Previous Rx's Medication Instructions Recorded atenolol 50 mg tablet 50 mg PO DAILY #30 tabs 12/10/20 ondansetron 4 mg disintegrating 4 mg PO TID-QID PRN nausea and 12/10/20 tablet vomiting #10 tabs metoprolol tartrate 50 mg tablet 50 mg PO BID #60 tabs 09/24/22 lisinopril 20 mg tablet 20 mg PO BID #60 tabs 01/23/24 metoprolol tartrate 50 mg tablet 50 mg PO BID #60 tabs 01/23/24 oxycodone-acetaminophen 10 mg-325 1 tab PO Q6H PRN pain #20 tabs 03/30/24 mg tablet phenazopyridine 200 mg tablet 200 mg PO TID PRN pain #9 tabs 04/05/24 tamsulosin 0.4 mg capsule 0.4 mg PO DAILY #30 caps 04/05/24 oxycodone-acetaminophen 10 mg-325 1 tab PO Q8H PRN pain #14 tabs 04/23/24 mg tablet tamsulosin 0.4 mg capsule 0.4 mg PO DAILY #30 caps 04/23/24 Allergies Allergy/AdvReac Type Severity Reaction Status Date / Time Penicillins Allergy Intermediate Childhood Verified 04/23/24 18:42 reaction Patient History Medical History Hypertension Surgical History No pertinent past surgical history Social History household members: friend(s) Smoking Status: Current every day smoker alcohol intake: current Smoking Status: Current every day smoker tobacco type: cigarettes alcohol intake frequency: holidays/special occasions only Substance Use Type: marijuana Exam Initial Vital Signs Initial Vital Signs: Vital Signs Temperature 98.0 F 04/23/24 18:33 Pulse Rate 96 H 04/23/24 18:33 Respiratory Rate 15 04/23/24 18:33 Blood Pressure 222/110 H 04/23/24 18:33 Pulse Oximetry 96 04/23/24 18:33 Oxygen Delivery Method Room Air 04/23/24 18:33 Const: Awake, alert, no acute distress, morbidly obese GI: Soft, nontender, nondistended MSK: No midline tenderness, left-sided CVA tenderness Skin: Warm, Dry, intact, no rashes Neuro: AO x3, CN II-XII grossly intact, moves all extremities Course Orders Ordered: ED Orders 04/23/24 19:04 XR KUB Stat 04/23/24 19:10 CBC Auto Diff [Complete Blood Count AUTO DIFF] Stat CMP [Comprehensive Metabolic Panel] Stat 04/23/24 19:45 UA Complete [Urinalysis and Microscopic] Stat Urine Culture Stat Discontinued Medications Acetaminophen (Ofirmev) 1,000 mg in 100 mls @ 400 mls/hr IV NOW ONE Stop: 04/23/24 18:54 Last Infusion: 04/23/24 19:40 Dose: Infused Documented By: Admin: 04/23/24 19:25 Dose: 400 mls/hr Documented By: GRICEL Sodium Chloride (Normal Saline 0.9%) 1,000 mls @ 1,000 mls/hr IV BOLUS ONE Stop: 04/23/24 19:39 Last Infusion: 04/23/24 20:10 Dose: Infused Documented By: Admin: 04/23/24 19:25 Dose: 1,000 mls/hr Documented By: GRICEL Ketorolac Tromethamine (Ketorolac 30 Mg/Ml Vial) 15 mg IV NOW ONE Stop: 04/23/24 18:41 Last Admin: 04/23/24 19:25 Dose: 15 mg Documented By: GRICEL Metronidazole (Metronidazole 500 Mg Tablet) 2,000 mg PO NOW ONE Stop: 04/23/24 20:09 Last Admin: 04/23/24 20:12 Dose: 2,000 mg Documented By: DKB Oxycodone/Acetaminophen (Oxycodone/Apap 5/325 Prepack) 1 bottle MISC DIRECTED ONE Stop: 04/23/24 20:26 Last Admin: 04/23/24 20:31 Dose: 1 bottle Documented By: ANITA Vital Signs Vital signs: Vital Signs - 8 hr 04/23/24 18:33 04/23/24 19:28 04/23/24 19:29 Temperature 98.0 F Pulse Rate 96 H 86 87 Respiratory Rate 15 Blood Pressure 222/110 H Pulse Oximetry 96 97 96 Oxygen Delivery Method Room Air 04/23/24 19:29 04/23/24 19:30 04/23/24 19:30 Temperature Pulse Rate 82 Respiratory Rate Blood Pressure 196/113 H 191/118 H Pulse Oximetry 97 Oxygen Delivery Method 04/23/24 20:00 04/23/24 20:00 04/23/24 20:21 Temperature Pulse Rate 83 Respiratory Rate 18 Blood Pressure 187/117 H 173/109 H Pulse Oximetry 95 Oxygen Delivery Method 04/23/24 20:21 Temperature Pulse Rate 91 H Respiratory Rate Blood Pressure Pulse Oximetry 97 Oxygen Delivery Method MDM - Male Genitourinary Lab Data 04/23/24 19:10 04/23/24 19:10 Labs: Lab Results 04/23/24 04/23/24 Range/Units 19:10 19:45 WBC 10.0 (4.5-11.0) X10^3/uL RBC 4.98 (4.5-5.9) X10^6/uL Hgb 14.3 (13.5-17.5) g/dL Hct 42.9 (41-53) % MCV 86.1 (80-100) fL MCH 28.7 (26-34) PG MCHC 33.3 (30-36) % RDW 14.1 (11.6-14.8) % Plt Count 324 (150-400) X10^3/uL Neut % (Auto) 51.3 (50-75) % Lymph % (Auto) 39.7 (25-40) % [place] % (Auto) 5.8 (3-14) % Eos % (Auto) 2.2 (2-4) % Baso % (Auto) 1.0 (0-2) % Neut # (Auto) 5100 (1142-1368) /uL Lymph # (Auto) 4000 (1650-0321) /uL [place] # (Auto) 600 (0-900) /uL Eos # (Auto) 200 (0-450) /uL Baso # (Auto) 100 (0-100) /uL Sodium 138 (137-145) mmol/L Potassium 3.6 (3.4-5.1) mmol/L Chloride 105 (98-107) mmol/L Carbon Dioxide 25 (22-32) mmol/L BUN 15 (9-20) mg/dL Creatinine 0.96 (0.66-1.25) mg/dL Estimated GFR > 60 (>60) mL/min BUN/Creatinine Ratio 15.6 (6-22) Glucose 102 H (70-100) mg/dL Calcium 8.9 (8.4-10.2) mg/dL Total Bilirubin 0.6 (0.2-1.3) mg/dL AST 28 (17-59) IU/L ALT 36 (<50) IU/L Alkaline Phosphatase 98 (38-126) U/L Total Protein 7.0 (6.3-8.2) g/dL Albumin 4.2 (3.5-5.0) g/dL Globulin 2.8 (1.7-4.1) g/dL Albumin/Globulin Ratio 1.5 (1.0-2.8) Urine Color Yellow Urine Appearance Sl cloudy Urine pH 5.5 (4.5-8.0) Ur Specific [place] 1.025 (1.000-1.035) Urine Protein 1+ H (Negative) Urine Glucose (UA) Negative (Negative) g/dL Urine Ketones Negative (NEGATIVE) Urine Occult Blood 3+ H (Negative) Urine Nitrate Negative (Negative) Urine Bilirubin Negative (NEGATIVE) Urine Urobilinogen 0.2 (0.2) E.U./dL Ur Leukocyte Esterase 1+ H (NEGATIVE) Urine RBC 30-100/hpf H (0-5/HPF) Urine WBC 1-5/hpf (0-5/HPF) Ur Squamous Epith Cells 0-1 /hpf (0-5/HPF) Urine Bacteria Few (2-10) H (None) Urine Trichomonas 1-5/hpf H (None Seen) Ur Culture Indicated? Specimen cultured Vol Urine Centrifuged 10ml (spun) Imaging Data Abdominal x-ray: Radiologist's Impression: PROCEDURE: XR KUB INDICATIONS: L SIDED KIDNEY PAIN, STENT EVAL TECHNIQUE: One view of the abdomen acquired. COMPARISON: [facility], CR, XR ABDOMEN 1V, 04/05/2024, 19:32. [facility], CT, CT ABDOMEN PELVIS W CON, 03/23/2024, 15:24. FINDINGS: Surgical changes and devices: Left double-J ureteral stent. Bowel: Bowel gas pattern is normal. Soft tissues: No suspicious abdominal calcifications. Visualized solid organ contours appear normal in size. Contrast in the bladder. Suspect 2 stones in the left right kidney measuring 1.2 cm and 0.8 cm. The larger stone appears to have refluxed from the proximal ureter. Bones: No suspicious bony lesions. IMPRESSION: Left double-J ureteral stent. Left kidney stones x2. The largest stone appears to have reflux from the proximal ureter. Dictated by: Matthew Amezcua M.D. on 04/23/2024 at 20:03 Approved by: Matthew Amezcua M.D. on 04/23/2024 at 20:06 MDM Narrative Medical decision making narrative: Nontoxic patient with persistent flank pain, known stent in place with history of kidney stones. Patient also reports concerned that his insurance has not gone through and he does not have a follow up appointment with Urology. Case discussed with on-call urologist Dr. Gallagher, who stated that the pain is characteristic of stent placement. With the moderately used stents it was extremely unlikely that patient has migration of the stent. A KUB can be ordered for assessment but CT imaging is not needed at this time. As long as laboratory work is normal patient can be discharged with pain medications, continued on Flomax, and continue to try to follow up in clinic. Stent should be fine in place for at least another week. Laboratory work shows no acute findings, kidney function stable, no leukocytosis. Urinalysis positive for Trichomonas. Patient informed of the Trichomonas in his urine as well as Urology recommendations. Patient given 2000 mg of metronidazole here for the Trichomonas infection and he was counseled that he would need to notify his previous partners so that they can be tested and treated as well. Discharge Plan Departure Patient Disposition: Home Clinical Impression: Left flank pain Instructions: DI for Kidney Stones Activity Restrictions/Additional Instructions: Your blood work today shows that you have stable kidney function and no new signs of infection. The x-ray shows that the stent is in the appropriate position. You did have an incidental finding of Trichomonas in your urine, which is a sexually transmitted bacteria. You has been treated for it today, but you should notify previous partners that they should be tested for this bacteria, and you should wait to have unprotected intercourse for the next 24 hours. Pain medications and Flomax has been sent to your pharmacy. Please continue to try to follow up in the office with Prescriptions: New oxycodone-acetaminophen 10-325 mg tablet 1 tab PO Q8H PRN (Reason: pain) Qty: 14 0RF tamsulosin 0.4 mg capsule 0.4 mg PO DAILY Qty: 30 0RF No Action tamsulosin 0.4 mg capsule 0.4 mg PO DAILY Qty: 30 0RF phenazopyridine 200 mg tablet 200 mg PO TID PRN (Reason: pain) Qty: 9 0RF ondansetron 4 mg tablet,disintegrating 4 mg PO TID-QID PRN (Reason: nausea and vomiting) Qty: 10 0RF atenolol 50 mg tablet 50 mg PO DAILY Qty: 30 0RF oxycodone-acetaminophen 10-325 mg tablet 1 tab PO Q6H PRN (Reason: pain) Qty: 20 0RF metoprolol tartrate 50 mg tablet 50 mg PO BID Qty: 60 2RF metoprolol tartrate 50 mg tablet 50 mg PO BID Qty: 60 0RF lisinopril 20 mg tablet 20 mg PO BID Qty: 60 0RF Referrals: Miscellaneous,Doctor, MD [Primary Care Provider] - Stand Alone Forms: Patient Portal/API
--- NOTE | 2024-04-23 19:04 | DI.RAD.S_ITS ---
PROCEDURE: XR KUB INDICATIONS: L SIDED KIDNEY PAIN, STENT EVAL TECHNIQUE: One view of the abdomen acquired. COMPARISON: [facility], CR, XR ABDOMEN 1V, 04/05/2024, 19:32. [facility], CT, CT ABDOMEN PELVIS W CON, 03/23/2024, 15:24. FINDINGS: Surgical changes and devices: Left double-J ureteral stent. Bowel: Bowel gas pattern is normal. Soft tissues: No suspicious abdominal calcifications. Visualized solid organ contours appear normal in size. Contrast in the bladder. Suspect 2 stones in the left right kidney measuring 1.2 cm and 0.8 cm. The larger stone appears to have refluxed from the proximal ureter. Bones: No suspicious bony lesions. IMPRESSION: Left double-J ureteral stent. Left kidney stones x2. The largest stone appears to have reflux from the proximal ureter. Dictated by: Matthew Amezcua M.D. on 04/23/2024 at 20:03 Approved by: Matthew Amezcua M.D. on 04/23/2024 at 20:06
[2024-04-23 19:19] LABS: Add Manual Diff / Slide Review NO; Basophils Absolute Auto 100 /uL (0-100); Eosinophils Absolute Auto 200 /uL (0-450); Eosinophils Percent Auto 2.2 % (2-4); Hematocrit 42.9 % (41-53); Hemoglobin 14.3 g/dL (13.5-17.5); Lymphocytes Absolute Auto 4000 /uL (1100-4500); Lymphocytes Percent Auto 39.7 % (25-40); Mean Corpuscular HGB Conc 33.3 % (30-36); Mean Corpuscular Hemoglobin 28.7 PG (26-34); Mean Corpuscular Volume 86.1 fL (80-100); Monocytes Absolute Auto 600 /uL (0-900); Monocytes Percent Auto 5.8 % (3-14); Neutrophils Absolute Auto 5100 /uL (1500-7000); Neutrophils Percent Auto 51.3 % (50-75); Platelet Count 324 X10^3/uL (150-400); Red Blood Cell Count 4.98 X10^6/uL (4.5-5.9); Red Cell Distribution Width 14.1 % (11.6-14.8)
[2024-04-23] MEDS: ACETAMINOPHEN IV 1,000 MG/100 ML VIAL 400 MG IV (19:25)
[2024-04-23] MEDS: KETOROLAC 30 MG/ML VIAL 15 MG IV (19:25)
[2024-04-23] MEDS: SODIUM CHLORIDE 0.9% 1,000 ML 1000 ML IV (19:25)
[2024-04-23 19:28] VITALS: PULSE 86; O2SAT 97
[2024-04-23 19:29] VITALS: BP 196/113; PULSE 87; O2SAT 96
[2024-04-23 19:30] VITALS: BP 191/118; PULSE 82; O2SAT 97
[2024-04-23 19:36] LABS: Alanine Aminotransferase 36 IU/L (<50); Albumin 4.2 g/dL (3.5-5.0); Albumin Globulin Ratio 1.5 (1.0-2.8); Alkaline Phosphatase 98 U/L (38-126); Aspartate Aminotransferase 28 IU/L (17-59); BUN Creatinine Ratio 15.6 (6-22); Bilirubin Total 0.6 mg/dL (0.2-1.3); Blood Urea Nitrogen 15 mg/dL (9-20); Calcium 8.9 mg/dL (8.4-10.2); Carbon Dioxide 25 mmol/L (22-32); Chloride 105 mmol/L (98-107); Estimated Glomerular Filt Rate > 60 mL/min (>60); Globulin 2.8 g/dL (1.7-4.1); Glucose 102 mg/dL (70-100); HEMOLYSIS < 15 (0-50); Potassium 3.6 mmol/L (3.4-5.1); Sodium 138 mmol/L (137-145)
[2024-04-23 19:52] LABS: Bilirubin Urine UA NEGATIVE (NEGATIVE); Color Urine UA YELLOW; Glucose Urine UA NEGATIVE (Negative); Ketones Urine UA NEGATIVE (NEGATIVE); Leukocyte Esterase Urine UA 1+ (NEGATIVE); Nitrite Urine UA NEGATIVE (Negative); Occult Blood Urine UA 3+ (Negative); Protein Urine UA 1+ (Negative); Specific Gravity Urine UA 1.025 (1.000-1.035); Urobilinogen Urine UA 0.2 E.U./dL (0.2); pH Urine UA 5.5 (4.5-8.0)
[2024-04-23 19:53] LABS: Appearance Urine UA SL CLOUDY
[2024-04-23 20:00] VITALS: BP 187/117; PULSE 83; RESP 18; O2SAT 95
[2024-04-23 20:04] LABS: RBC Urine 30-100/HPF (0-5/HPF); Urine Volume 10mL (spun); WBC Urine 1-5/HPF (0-5/HPF)
[2024-04-23 20:05] LABS: Bacteria Urine Few (2-10); Culture Indicated Urine Specimen Cultured; Squamous Epithelial Cell Urine 0-1 /HPF (0-5/HPF); Trichomonas Urine 1-5/HPF (None Seen)
[2024-04-23] MEDS: metroNIDAZOLE 500 MG TABLET 2000 MG PO (20:12)
[2024-04-23 20:21] VITALS: BP 173/109; PULSE 91; O2SAT 97
[2024-04-23] MEDS: OXYCODONE/APAP 5/325 PREPACK 1 BOTTLE MISC (20:31)
== END 2024-04-23 20:31 | disposition home or self-care (01) ==
PROVIDERS: Emergency Provider Emergency Medicine
DX: N20.0 Calculus of kidney (principal); A59.00 Urogenital trichomoniasis, unspecified; R31.9 Hematuria, unspecified; Z79.899 Other long term (current) drug therapy; Z96.0 Presence of urogenital implants
CPT/HCPCS: 36415; 74018; 80053; 81001; 85025; 87086; 96361; 96374; 96375; 99284; J0134; J1885

== ENCOUNTER 2024-05-11 02:47 | Emergency (ER) | payer SELFPAY ==
[2024-05-11] VITALS (12 sets, daily range): BP systolic 183–215; BP diastolic 95–117; PULSE 79–99; RESP 14–20; TEMP 36.3; O2SAT 96–99; BMI 39.5
--- NOTE | 2024-05-11 03:05 | ED.ABDPAIN ---
HPI - Abdominal Pain General Chief Complaint: Abdominal Pain Stated Complaint: kidney stones Time Seen by Provider: 05/11/24 02:59 History of Present Illness HPI narrative: 44-year-old male with history of large left 1.9cm ureteral stone diagnosed about a month ago here, had persistence of pain and ureteral stenting by Dr. [facility] on 04/05/24, awaiting stone removal procedure, not yet approved by his insurance. Still having left-sided flank pain that is increasing since yesterday. He does not feel feverish. He did not feel short of breath. He has not been coughing. He has not having nausea or vomiting. Related Data Previous Rx's Medication Instructions Recorded atenolol 50 mg tablet 50 mg PO DAILY #30 tabs 12/10/20 ondansetron 4 mg disintegrating 4 mg PO TID-QID PRN nausea and 12/10/20 tablet vomiting #10 tabs metoprolol tartrate 50 mg tablet 50 mg PO BID #60 tabs 09/24/22 lisinopril 20 mg tablet 20 mg PO BID #60 tabs 01/23/24 metoprolol tartrate 50 mg tablet 50 mg PO BID #60 tabs 01/23/24 oxycodone-acetaminophen 10 mg-325 1 tab PO Q6H PRN pain #20 tabs 03/30/24 mg tablet phenazopyridine 200 mg tablet 200 mg PO TID PRN pain #9 tabs 04/05/24 tamsulosin 0.4 mg capsule 0.4 mg PO DAILY #30 caps 04/05/24 oxycodone-acetaminophen 10 mg-325 1 tab PO Q8H PRN pain #14 tabs 04/23/24 mg tablet tamsulosin 0.4 mg capsule 0.4 mg PO DAILY #30 caps 04/23/24 amlodipine 5 mg tablet 5 mg PO DAILY #30 tabs 05/11/24 cefdinir 300 mg capsule 300 mg PO BID 10 days #20 caps 05/11/24 hydrocodone 5 mg-acetaminophen 325 1 tab PO Q6H PRN pain #14 tabs 05/11/24 mg tablet tamsulosin 0.4 mg capsule 0.4 mg PO DAILY #30 caps 05/11/24 Allergies Allergy/AdvReac Type Severity Reaction Status Date / Time Penicillins Allergy Intermediate Childhood Verified 04/23/24 18:42 reaction Review of Systems Review of Systems Narrative: see HPI Patient History Medical History (Updated 05/11/24 @ 06:19 by Gio Wong MD) Hypertension Surgical History No pertinent past surgical history Social History household members: friend(s) Smoking Status: Current every day smoker alcohol intake: current Smoking Status: Current every day smoker tobacco type: cigarettes alcohol intake frequency: holidays/special occasions only Substance Use Type: marijuana Exam Narrative Exam Narrative: GENERAL: Well-developed patient, in mod distress due to left flank pain. HEAD: Atraumatic. Normocephalic. EYES: Pupils equal round and reactive. Extraocular motions intact. No scleral icterus. No injection or drainage. ENT: Nose without bleeding, purulent drainage. Throat without erythema, tonsillar hypertrophy or exudate. Airway patent. NECK: Trachea midline. Non tender CARDIOVASCULAR: Regular rate and rhythm without murmurs, gallops, or rubs. RESPIRATORY: Clear to auscultation. Breath sounds equal bilaterally. No wheezes, rales, or rhonchi. GASTROINTESTINAL: Abdomen soft, non-tender, nondistended. EXTREMITIES: No edema or joint tenderness. BACK: Nontender without deformity or crepitance. No flank tenderness. NEURO: AOx3. Grossly nonfocal motor exam SKIN: No rash or erythema of visible areas Initial Vital Signs Initial Vital Signs: Vital Signs Temperature 97.4 F L 05/11/24 03:05 Pulse Rate 99 H 05/11/24 03:05 Respiratory Rate 20 05/11/24 03:05 Blood Pressure 212/105 H 05/11/24 03:05 Pulse Oximetry 98 05/11/24 03:05 Oxygen Delivery Method Room Air 05/11/24 03:05 Course Orders Ordered: ED Orders 05/11/24 03:25 Complete Blood Count AUTO DIFF Stat Comprehensive Metabolic Panel Stat Lipase Stat 05/11/24 03:45 Urine Culture Stat Urine Microscopic Stat 05/11/24 03:54 CT abdomen pelvis wo con Stat Discontinued Medications Hydrocodone Bitart/Acetaminophen (Hydrocodone/Acet 5/325 Prepack) 1 bottle MISC DIRECTED ONE Stop: 05/11/24 06:07 Last Admin: 05/11/24 06:38 Dose: 1 bottle Amlodipine Besylate (Amlodipine 5 Mg Tablet) 2.5 mg PO NOW ONE Stop: 05/11/24 04:52 Last Admin: 05/11/24 05:08 Dose: 2.5 mg Documented By: OLVIN Amlodipine Besylate (Amlodipine 5 Mg Tablet) 5 mg PO NOW ONE Stop: 05/11/24 06:10 Last Admin: 05/11/24 06:19 Dose: 5 mg Hydromorphone HCl (Hydromorphone 0.5 Mg Inj) 0.5 mg IV NOW ONE Stop: 05/11/24 03:43 Last Admin: 05/11/24 03:58 Dose: 0.5 mg Documented By: OLVIN POTASSIUM CHLORIDE IN WATER (Potassium Cl 10 Meq/100 Ml [place]) 10 meq in 100 mls @ 100 mls/hr IV Q1H [facility] Stop: 05/11/24 06:14 Last Admin: 05/11/24 05:29 Dose: 100 mls/hr Documented By: Infusion: 05/11/24 05:29 Dose: Infused Documented By: Admin: 05/11/24 04:29 Dose: 100 mls/hr Documented By: OLVIN Ceftriaxone Sodium 1,000 mg/ (Sodium Chloride) 100 mls @ 200 mls/hr IV NOW ONE Stop: 05/11/24 04:16 Last Infusion: 05/11/24 04:56 Dose: Infused Documented By: Admin: 05/11/24 04:26 Dose: 200 mls/hr Documented By: OLVIN Sodium Chloride (Normal Saline 0.9%) 1,000 mls @ 125 mls/hr IV CONT [facility] Last Admin: 05/11/24 05:08 Dose: 125 mls/hr Documented By: OLVIN Ondansetron HCl (Ondansetron 4 Mg Odt Prepack) 1 bottle MISC DIRECTED ONE Stop: 05/11/24 06:07 Last Admin: 05/11/24 06:38 Dose: 1 bottle Potassium Chloride (Potassium Chloride 20 Meq/15 Ml Udc) 20 meq PO NOW ONE Stop: 05/11/24 06:20 Last Admin: 05/11/24 06:23 Dose: 20 meq Vital Signs Vital signs: Vital Signs - 8 hr 05/11/24 03:05 05/11/24 03:22 05/11/24 03:22 Temperature 97.4 F L Pulse Rate 99 H 92 H Respiratory Rate 20 20 Blood Pressure 212/105 H 209/116 H Pulse Oximetry 98 97 Oxygen Delivery Method Room Air 05/11/24 03:30 05/11/24 03:30 05/11/24 03:45 Temperature Pulse Rate 92 H 92 H Respiratory Rate 19 14 Blood Pressure 215/117 H Pulse Oximetry 96 99 Oxygen Delivery Method 05/11/24 03:45 05/11/24 04:00 05/11/24 04:00 Temperature Pulse Rate 87 Respiratory Rate 17 Blood Pressure 204/109 H 183/105 H Pulse Oximetry 98 Oxygen Delivery Method 05/11/24 04:12 05/11/24 04:12 05/11/24 04:30 Temperature Pulse Rate 87 Respiratory Rate 16 Blood Pressure 198/110 H 189/106 H Pulse Oximetry 98 Oxygen Delivery Method 05/11/24 04:30 05/11/24 05:00 05/11/24 05:00 Temperature Pulse Rate 80 89 Respiratory Rate 17 16 Blood Pressure 209/108 H Pulse Oximetry 96 97 Oxygen Delivery Method 05/11/24 05:30 05/11/24 05:31 05/11/24 05:31 Temperature Pulse Rate 79 80 Respiratory Rate 14 14 Blood Pressure 184/108 H Pulse Oximetry 96 96 Oxygen Delivery Method 05/11/24 06:00 05/11/24 06:00 05/11/24 06:30 Temperature Pulse Rate 79 Respiratory Rate 14 Blood Pressure 201/103 H 187/95 H Pulse Oximetry 97 Oxygen Delivery Method 05/11/24 06:30 Temperature Pulse Rate 81 Respiratory Rate 14 Blood Pressure Pulse Oximetry 97 Oxygen Delivery Method MDM - Abdominal Pain Lab Data Attestation: I reviewed the patient's lab results. 05/11/24 03:25 05/11/24 03:25 Labs: Lab Results 05/11/24 05/11/24 Range/Units 03:25 03:45 WBC 10.0 (4.5-11.0) X10^3/uL RBC 5.21 (4.5-5.9) X10^6/uL Hgb 15.1 (13.5-17.5) g/dL Hct 45.0 (41-53) % MCV 86.3 (80-100) fL MCH 29.0 (26-34) PG MCHC 33.5 (30-36) % RDW 15.0 H (11.6-14.8) % Plt Count 314 (150-400) X10^3/uL Neut % (Auto) 61.1 (50-75) % Lymph % (Auto) 28.9 (25-40) % [place] % (Auto) 8.3 (3-14) % Eos % (Auto) 0.9 L (2-4) % Baso % (Auto) 0.8 (0-2) % Neut # (Auto) 6100 (2108-6667) /uL Lymph # (Auto) 2900 (3822-0475) /uL [place] # (Auto) 800 (0-900) /uL Eos # (Auto) 100 (0-450) /uL Baso # (Auto) 100 (0-100) /uL Sodium 139 (137-145) mmol/L Potassium 3.3 L (3.4-5.1) mmol/L Chloride 102 (98-107) mmol/L Carbon Dioxide 27 (22-32) mmol/L BUN 10 (9-20) mg/dL Creatinine 0.95 (0.66-1.25) mg/dL Estimated GFR > 60 (>60) mL/min BUN/Creatinine Ratio 10.5 (6-22) Glucose 122 H (70-100) mg/dL Calcium 8.9 (8.4-10.2) mg/dL Total Bilirubin 0.6 (0.2-1.3) mg/dL AST 25 (17-59) IU/L ALT 32 (<50) IU/L Alkaline Phosphatase 99 (38-126) U/L Total Protein 7.2 (6.3-8.2) g/dL Albumin 4.1 (3.5-5.0) g/dL Globulin 3.1 (1.7-4.1) g/dL Albumin/Globulin Ratio 1.3 (1.0-2.8) Lipase 45 (23-300) U/L Urine RBC 5-10/hpf H (0-5/HPF) Urine WBC 30-100/hpf H (0-5/HPF) Ur Squamous Epith Cells 0-1 /hpf (0-5/HPF) Urine Bacteria Many (>30) H (None) Ur Culture Indicated? Cult not indicated Vol Urine Centrifuged 10ml (spun) Point of care testing: Urine Dip Bedside Urine Glucose Negative Bedside Urine Bilirubin - Negative Bedside Urine Ketone - Negative Urine Specific [place] 1.020 Bedside Urine Occult Blood +++ Bedside Urine pH 6.0 Bedside Urine Protein + 30 Bedside Urine Urobilinogen - Negative Bedside Urine Nitrite - Negative Bedside Urine Leukocytes +++ 500 Esterase MDM Narrative Medical decision making narrative: 44-year-old with left flank pain, prior stenting last month for 1.9 mm stone. Still awaiting definitive removal procedure, pending insurance. Increasing left flank pain today. No fevers or chills. Labs pending. IV Dilaudid/Zofran. CT abdomen and pelvis noncontrast. Impressions: ?Mild left hydroureteronephrosis and perinephric/periureteral inflammatory changes with left ureteral stent present. Bladder wall thickening which can be seen in the setting of cystitis or infection. No evidence of colitis diverticulitis bowel obstruction or acute appendicitis. Incidental findings detailed.. See tele radiology report Urinalysis suspicious for infection, urine culture requested. IV ceftriaxone. Prescription for cefdinir sent to his pharmacy. Low potassium, IV and oral repletion. Recheck further in follow up Blood pressure elevation, he has not been able to refill his medications. Had been on tamsulosin in the past, we will refill for expulsive therapy effects, and also blood pressure reduction. Oral amlodipine, some modest reduction in blood pressure. He can continue taking his atenolol and lisinopril. Follow up for further blood pressure issues with his regular provider advised. 0615, case discussed with urology on-call [facility] Dr. Link, no emergent reason for transfer or admission at this time, would treat his blood pressure as an outpatient, would treat his infection with cefdinir as planned. Follow up with local urologist Dr. Dorantes as planned. Return precautions. Discharge Plan Departure Patient Disposition: Home Clinical Impression: Left flank pain, Ureteral stent present, Urinary tract infection, Left ureteral stone, Hypertension, Hypokalemia Activity Restrictions/Additional Instructions: History of known large left-sided stone, ureteral stenting on 04/[address] العلي local urologist, awaiting definitive fragment stone removal procedure pending insurance approval. Increasing left-sided flank pain. No fever. Blood pressure not low, in fact was high, having not been on an blood pressure medicines. Oral amlodipine given, some improvement in blood pressure along with pain medication and pain control measures. Urinalysis today suspicious for infection, IV ceftriaxone antibiotic, prescription for cefdinir antibiotic sent to your pharmacy. CT imaging showed presence of ureteral stent, left-sided stone fragments in place. No mention of abscess formation. Stent seems to be in adequate position. Case discussed with on-call Urology at [facility] in [place] Dr. Link, who thought there was no indication at this time for transfer or admission. He agreed with treatment of your blood pressure. He agreed with treatment of the infection with antibiotics. Your potassium was a little low, IV and oral potassium given. Consider recheck of the potassium level in follow up. Take your antibiotics as prescribed. Follow up with local urologist Dr. Dorantes, call his office in 2 days on Monday. Take prescription amlodipine for blood pressure control, also refill of tamsulosin that can help with expulsion of stones in the ureter, but also can lower your blood pressure as well. Return to this/nearest emergency department for any change worsening symptoms or any concerns prior Prescriptions: New cefdinir 300 mg capsule 300 mg PO BID 10 Days Qty: 20 0RF amlodipine 5 mg tablet 5 mg PO DAILY Qty: 30 0RF hydrocodone-acetaminophen 5-325 mg tablet 1 tab PO Q6H PRN (Reason: pain) Qty: 14 0RF tamsulosin 0.4 mg capsule 0.4 mg PO DAILY Qty: 30 0RF No Action tamsulosin 0.4 mg capsule 0.4 mg PO DAILY Qty: 30 0RF phenazopyridine 200 mg tablet 200 mg PO TID PRN (Reason: pain) Qty: 9 0RF ondansetron 4 mg tablet,disintegrating 4 mg PO TID-QID PRN (Reason: nausea and vomiting) Qty: 10 0RF atenolol 50 mg tablet 50 mg PO DAILY Qty: 30 0RF oxycodone-acetaminophen 10-325 mg tablet 1 tab PO Q6H PRN (Reason: pain) Qty: 20 0RF oxycodone-acetaminophen 10-325 mg tablet 1 tab PO Q8H PRN (Reason: pain) Qty: 14 0RF tamsulosin 0.4 mg capsule 0.4 mg PO DAILY Qty: 30 0RF metoprolol tartrate 50 mg tablet 50 mg PO BID Qty: 60 2RF metoprolol tartrate 50 mg tablet 50 mg PO BID Qty: 60 0RF lisinopril 20 mg tablet 20 mg PO BID Qty: 60 0RF Referrals: Jose Dorantes DO [Physician] - Miscellaneous,Doctor, MD [Primary Care Provider] - Stand Alone Forms: Patient Portal/API
[2024-05-11 03:35] LABS: Add Manual Diff / Slide Review NO; Basophils Absolute Auto 100 /uL (0-100); Basophils Percent Auto 0.8 % (0-2); Eosinophils Absolute Auto 100 /uL (0-450); Eosinophils Percent Auto 0.9 % (2-4); Hemoglobin 15.1 g/dL (13.5-17.5); Lymphocytes Absolute Auto 2900 /uL (1100-4500); Lymphocytes Percent Auto 28.9 % (25-40); Mean Corpuscular HGB Conc 33.5 % (30-36); Mean Corpuscular Volume 86.3 fL (80-100); Monocytes Absolute Auto 800 /uL (0-900); Monocytes Percent Auto 8.3 % (3-14); Neutrophils Absolute Auto 6100 /uL (1500-7000); Neutrophils Percent Auto 61.1 % (50-75); Platelet Count 314 X10^3/uL (150-400); Red Blood Cell Count 5.21 X10^6/uL (4.5-5.9)
--- NOTE | 2024-05-11 03:54 | DI.CT.S_ITS ---
PROCEDURE: CT ABDOMEN PELVIS WO CON INDICATIONS: left flank pain TECHNIQUE: Axial sections were acquired from the lung bases to the pubic symphysis. Coronal and sagittal reformats were performed. For radiation dose reduction, the following was used: automated exposure control, adjustment of mA and/or kV according to patient size. COMPARISON: None. FINDINGS: Image quality: Diagnostic. Lower Chest: Heart size is mildly enlarged, no pericardial effusion. URINARY: Right Kidney: Tiny 2 mm nonobstructing stone in lower pole right kidney. No hydronephrosis. Right Ureter: No hydroureter. Left Kidney: There is a left-sided ureteral stent. Mild prominence of left renal collecting system is seen without obstructing stones. Mild left perinephric fat stranding is also noted.. Left Ureter: There is very mild hydroureter surrounding the ureteral stent. Mild periureteral fat stranding is seen. Bladder: Mild diffuse bladder wall thickening is seen. No calcified bladder stones. ABDOMEN: Liver: No contour-deforming solid mass. Gallbladder: No radiopaque gallstones or wall thickening. Biliary ducts: No biliary dilation. Pancreas: No ductal dilation. Spleen: Size is within normal limits. Adrenal Glands: No adrenal nodules. Stomach and Bowel: Normal colonic caliber, without significant wall thickening. Normal appendix. No abscess collection. Peritoneum: No abnormal intraperitoneal fluid. No free air. Ventral Wall: No hernia. Abdominal Nodes: No enlarged retroperitoneal or mesenteric lymph nodes. Vessels: Aorta and inferior vena cava are normal in size. PELVIS: Pelvic Organs: Unremarkable. Pelvic Nodes: Unremarkable. Miscellaneous: No inguinal hernias are seen. Bones: No aggressive appearing bony lesions. IMPRESSION: 1. Presence of left ureteral stent with very mild left-sided hydronephrosis and hydroureter as well as mild left perinephric and periureteral fat stranding. No discrete obstructing renal stone is seen. Infectious process such as pyelonephritis cannot be excluded. 2. Diffuse bladder wall thickening concerning for cystitis. No bladder stones. 3. Nonobstructing tiny right renal stone. No right-sided hydronephrosis or hydroureter. No significant inflammatory changes are noted adjacent to right kidney. 4. No bowel obstruction or abnormal bowel wall thickening. No abscess collection. Normal appendix. No free fluid or free air. No discrepancies from preliminary reading. Dictated by: Cedric Mejia M.D. on 05/11/2024 at 7:40 Approved by: Cedric Mejia M.D. on 05/11/2024 at 7:43
[2024-05-11] MEDS: HYDROMORPHONE 0.5 MG INJ IV (03:58)
[2024-05-11 03:59] LABS: Alanine Aminotransferase 32 IU/L (<50); Albumin 4.1 g/dL (3.5-5.0); Albumin Globulin Ratio 1.3 (1.0-2.8); Alkaline Phosphatase 99 U/L (38-126); Aspartate Aminotransferase 25 IU/L (17-59); BUN Creatinine Ratio 10.5 (6-22); Bilirubin Total 0.6 mg/dL (0.2-1.3); Blood Urea Nitrogen 10 mg/dL (9-20); Calcium 8.9 mg/dL (8.4-10.2); Carbon Dioxide 27 mmol/L (22-32); Chloride 102 mmol/L (98-107); Estimated Glomerular Filt Rate > 60 mL/min (>60); Globulin 3.1 g/dL (1.7-4.1); Glucose 122 mg/dL (70-100); HEMOLYSIS < 15 (0-50); Lipase 45 U/L (23-300); Potassium 3.3 mmol/L (3.4-5.1); Sodium 139 mmol/L (137-145); Total Protein 7.2 g/dL (6.3-8.2)
[2024-05-11 04:08] LABS: Bacteria Urine Many (>30); Culture Indicated Urine Cult Not Indicated; RBC Urine 5-10/HPF (0-5/HPF); Squamous Epithelial Cell Urine 0-1 /HPF (0-5/HPF); Urine Volume 10mL (spun); WBC Urine 30-100/HPF (0-5/HPF)
[2024-05-11] MEDS: cefTRIAXone 1,000 MG in SODIUM CHLORIDE 0.9% 100 ML 200 MG IV (04:26)
[2024-05-11] MEDS: POTASSIUM CHLORIDE IN WATER 10 MEQ/100 ML PIGGYBACK 100 MEQ IV ×2 (04:29→05:29)
[2024-05-11] MEDS: SODIUM CHLORIDE 0.9% 1,000 ML 125 ML IV (05:08)
[2024-05-11] MEDS: AMLODIPINE 5 MG TABLET 2.5 MG PO (05:08)
[2024-05-11] MEDS: AMLODIPINE 5 MG TABLET PO (06:19)
[2024-05-11] MEDS: POTASSIUM CHLORIDE 20 MEQ/15 ML UDC PO (06:23)
[2024-05-11] MEDS: HYDROCODONE/ACET 5/325 PREPACK 1 BOTTLE MISC (06:38)
[2024-05-11] MEDS: ONDANSETRON 4 MG ODT PREPACK 1 BOTTLE MISC (06:38)
== END 2024-05-11 06:51 | disposition home or self-care (01) ==
PROVIDERS: Emergency Provider Emergency Medicine
DX: N20.1 Calculus of ureter (principal); R10.9 Unspecified abdominal pain; N39.0 Urinary tract infection, site not specified; I10 Essential (primary) hypertension; E87.6 Hypokalemia; Z96.0 Presence of urogenital implants
CPT/HCPCS: 36415; 74176; 80053; 81003; 81015; 83690; 85025; 87086; 96365; 96366; 96368; 96375; 99284; J0696; J1170

== ENCOUNTER 2024-05-29 23:31 | Emergency (ER) | payer OTHER, MEDICAID, SELFPAY ==
[2024-05-29 23:35] VITALS: BP 214/106; PULSE 95; RESP 24; TEMP 36.7; O2SAT 99; BMI 39.5
[2024-05-29 23:39] VITALS: BP 214/106; PULSE 102; O2SAT 99
[2024-05-29 23:46] VITALS: BP 187/104; PULSE 92; O2SAT 96
--- NOTE | 2024-05-29 23:49 | ED_ITS ---
HPI - Back Pain/Injury General Chief Complaint: Urogenital-Male Stated Complaint: kidney stones and peeing blood Time Seen by Provider: 05/29/24 23:48 Source: patient and RN notes reviewed Mode of arrival: Family Vehicle Limitations: no limitations History of Present Illness HPI Narrative: 44-year-old male with a history hypertension, large left 1.9 cm ureteral stone diagnosed about a month before, had ureteral stenting on the left on 04/05/[address] imaging mid April which showed the stone was no longer present. He states he had been improved until the last few days when he started having some increased left flank pain again, states he has been having hematuria and dysuria. States no fevers or chills. Had a little bit decreased appetite states not really nauseated. No vomiting. Denies any chest pain or shortness of breath. States no major changes to bowel movements. Denies any testicular pain. Does note dysuria and some sense of urgency. States does not feel like he has a recurrence of stone but he is worried about infection. Ureteral stent still is in place he has had barriers with a obtaining insurance to have it removed. Patient states he should be on an antihypertensive but has not been able to fill it. States reported allergy to penicillin but does not know what the reaction was. Does use tobacco daily, occasional alcohol, uses marijuana denies recreational drugs otherwise. Patient had some Aleve and Tylenol at about 6:00 pm this evening. Patient did have a prior urine infection in April did complete his antibiotics. Related Data Previous Rx's Medication Instructions Recorded atenolol 50 mg tablet 50 mg PO DAILY #30 tabs 12/10/20 ondansetron 4 mg disintegrating 4 mg PO TID-QID PRN nausea and 12/10/20 tablet vomiting #10 tabs metoprolol tartrate 50 mg tablet 50 mg PO BID #60 tabs 09/24/22 lisinopril 20 mg tablet 20 mg PO BID #60 tabs 01/23/24 metoprolol tartrate 50 mg tablet 50 mg PO BID #60 tabs 01/23/24 oxycodone-acetaminophen 10 mg-325 1 tab PO Q6H PRN pain #20 tabs 03/30/24 mg tablet phenazopyridine 200 mg tablet 200 mg PO TID PRN pain #9 tabs 04/05/24 tamsulosin 0.4 mg capsule 0.4 mg PO DAILY #30 caps 04/05/24 oxycodone-acetaminophen 10 mg-325 1 tab PO Q8H PRN pain #14 tabs 04/23/24 mg tablet tamsulosin 0.4 mg capsule 0.4 mg PO DAILY #30 caps 04/23/24 amlodipine 5 mg tablet 5 mg PO DAILY #30 tabs 05/11/24 hydrocodone 5 mg-acetaminophen 325 1 tab PO Q6H PRN pain #14 tabs 05/11/24 mg tablet tamsulosin 0.4 mg capsule 0.4 mg PO DAILY #30 caps 05/11/24 cefdinir 300 mg capsule 300 mg PO BID #20 caps 05/30/24 Allergies Allergy/AdvReac Type Severity Reaction Status Date / Time Penicillins Allergy Intermediate Childhood Verified 04/23/24 18:42 reaction Review of Systems Review of Systems ROS Unobtainable: All systems reviewed & are unremarkable except as noted in HPI and below Patient History Medical History (Updated 05/30/24 @ 01:19 by Valerie Delcid DO) Hypertension Surgical History (Updated 05/30/24 @ 01:19 by Valerie Delcid DO) No pertinent past surgical history Social History household members: friend(s) Smoking Status: Current every day smoker alcohol intake: current Smoking Status: Current every day smoker tobacco type: cigarettes alcohol intake frequency: holidays/special occasions only Alcohol type: other Substance Use Type: marijuana Exam Narrative Exam Narrative: GENERAL: Alert and oriented x three, obese male in mild distress. HEENT: Head normocephalic, atraumatic, EOMI, pupils reactive, face symmetric, moist mucous membranes NECK: Supple, full range of motion CARDIOVASCULAR: Regular rate and rhythm without murmurs, rubs or gallops. RESPIRATORY: Breath sounds equal bilaterally, no wheezes rales or rhonchi. ABDOMEN: Soft, nontender. Normoactive bowel sounds all 4 quadrants. No guarding or rebound, rigidity, no mass : Very mild left CVA tenderness, no right CVA tenderness. EXTREMITIES: Normal range of motion, no clubbing or edema. Neurovascularly intact NEUROLOGICAL: Cranial nerves II through XII grossly intact. Moving all extremities SKIN: Warm, dry, no petechiae, no rashes or lesions. Initial Vital Signs Initial Vital Signs: Vital Signs Temperature 98.0 F 05/29/24 23:35 Pulse Rate 95 H 05/29/24 23:35 Respiratory Rate 24 05/29/24 23:35 Blood Pressure 214/106 H 05/29/24 23:35 Pulse Oximetry 99 05/29/24 23:35 Oxygen Delivery Method Room Air 05/29/24 23:35 Course Orders Ordered: ED Orders 05/29/24 23:47 UA Complete [Urinalysis and Microscopic] Stat Urine Culture Stat 05/30/24 00:00 XR KUB Stat CBC Auto Diff [Complete Blood Count AUTO DIFF] Stat CMP [Comprehensive Metabolic Panel] Stat Lipase Stat Discontinued Medications Ceftriaxone Sodium 2,000 mg/ (Sodium Chloride) 100 mls @ 200 mls/hr IV NOW ONE Stop: 05/30/24 01:10 Last Infusion: 05/30/24 01:47 Dose: Infused Ketorolac Tromethamine (Ketorolac 30 Mg/Ml Vial) 15 mg IV NOW ONE Stop: 05/30/24 00:01 Last Admin: 05/30/24 00:07 Dose: 15 mg Documented By: KEITH Vital Signs Vital signs: Vital Signs - 8 hr 05/29/24 23:35 05/29/24 23:39 05/29/24 23:39 Temperature 98.0 F Pulse Rate 95 H 102 H Respiratory Rate 24 Blood Pressure 214/106 H 214/106 H Pulse Oximetry 99 99 Oxygen Delivery Method Room Air 05/29/24 23:46 05/29/24 23:46 05/30/24 00:00 Temperature Pulse Rate 92 H Respiratory Rate Blood Pressure 187/104 H 178/91 H Pulse Oximetry 96 Oxygen Delivery Method Room Air 05/30/24 00:00 05/30/24 00:30 05/30/24 01:00 Temperature Pulse Rate 90 88 81 Respiratory Rate Blood Pressure Pulse Oximetry 95 97 94 Oxygen Delivery Method 05/30/24 01:03 05/30/24 01:03 05/30/24 01:30 Temperature Pulse Rate 81 Respiratory Rate Blood Pressure 187/95 H 194/90 H Pulse Oximetry 94 Oxygen Delivery Method 05/30/24 01:30 Temperature Pulse Rate 83 Respiratory Rate Blood Pressure Pulse Oximetry 94 Oxygen Delivery Method Room Air MDM - Back Pain/Injury Lab Data 05/29/24 23:45 05/29/24 23:45 Labs: Lab Results 05/29/24 05/29/24 Range/Units 23:45 23:47 WBC 10.7 (4.5-11.0) X10^3/uL RBC 5.58 (4.5-5.9) X10^6/uL Hgb 16.1 (13.5-17.5) g/dL Hct 47.7 (41-53) % MCV 85.4 (80-100) fL MCH 28.8 (26-34) PG MCHC 33.7 (30-36) % RDW 14.7 (11.6-14.8) % Plt Count 356 (150-400) X10^3/uL Neut % (Auto) 52.8 (50-75) % Lymph % (Auto) 38.5 (25-40) % [place] % (Auto) 5.6 (3-14) % Eos % (Auto) 2.5 (2-4) % Baso % (Auto) 0.6 (0-2) % Neut # (Auto) 5600 (2404-9974) /uL Lymph # (Auto) 4100 (2221-7434) /uL [place] # (Auto) 600 (0-900) /uL Eos # (Auto) 300 (0-450) /uL Baso # (Auto) 100 (0-100) /uL Sodium 140 (137-145) mmol/L Potassium 3.6 (3.4-5.1) mmol/L Chloride 105 (98-107) mmol/L Carbon Dioxide 27 (22-32) mmol/L BUN 10 (9-20) mg/dL Creatinine 0.94 (0.66-1.25) mg/dL Estimated GFR > 60 (>60) mL/min BUN/Creatinine Ratio 10.6 (6-22) Glucose 90 (70-100) mg/dL Calcium 9.0 (8.4-10.2) mg/dL Total Bilirubin 0.7 (0.2-1.3) mg/dL AST 32 (17-59) IU/L ALT 43 (<50) IU/L Alkaline Phosphatase 110 (38-126) U/L Total Protein 7.8 (6.3-8.2) g/dL Albumin 4.5 (3.5-5.0) g/dL Globulin 3.3 (1.7-4.1) g/dL Albumin/Globulin Ratio 1.4 (1.0-2.8) Lipase 31 (23-300) U/L Urine Color Brown Urine Appearance Turbid Urine pH 6.0 (4.5-8.0) Ur Specific [place] >=1.030 H (1.000-1.035) Urine Protein 2+ H (Negative) Urine Glucose (UA) Negative (Negative) g/dL Urine Ketones Negative (NEGATIVE) Urine Occult Blood 3+ H (Negative) Urine Nitrate Negative (Negative) Urine Bilirubin Negative (NEGATIVE) Urine Urobilinogen 0.2 (0.2) E.U./dL Ur Leukocyte Esterase Trace H (NEGATIVE) Urine RBC >100/hpf H (0-5/HPF) Urine WBC 5-10/hpf H (0-5/HPF) Ur Squamous Epith Cells 0-1 /hpf (0-5/HPF) Urine Bacteria Many (>30) H (None) Ur Culture Indicated? Specimen cultured Vol Urine Centrifuged 10ml (spun) MDM Narrative Medical decision making narrative: 44-year-old male with complaint of hematuria, dysuria does have a known ureteral stent in place. States it does not feel like he has had a recurrent stone but is concerned about UTI. Patient is hypertensive but states he is supposed to be taking antihypertensives but has not filled them secondary to insurance issues. Patient was prescribed a 30 day prescription in his last visit on May 11 but states he did not fill it because of money issues. He does note he recently obtained a job and will hopefully be able to have insurance soon. Labs white count of 10 hemoglobin of 16 platelets of 356. Chemistries show normal electrolytes, BUN creatinine, glucose of 90 she is negative lipase is normal. Urine urine shows 2+ protein, 3+ blood, trace leuks, greater than 100 RBCs 5-10 white cells many bacteria 1 squamous. Was sent for culture. KUB x-ray shows left ureteral stent in place again seen her left renal stones measuring up to 1.3 cm limited evaluation secondary to overlying bowel gas. No suspicious bony lesions. Patient received Toradol he feels much improved. Appears nontoxic without any signs of sepsis currently. We will give a dose of IV antibiotic here. Patient was on cefdinir in the past and tolerated this well he was given a dose of Rocephin. Prior urine culture from 05/11/2024 showed Streptococcus. Discharge Plan Departure Patient Disposition: Home Clinical Impression: Acute UTI, S/P ureteral stent placement, Hypertension Activity Restrictions/Additional Instructions: Your urine today does show signs consistent with infection, please take antibiotics until completed. Prescription was sent to [facility] in [place]. Please follow up with Urology, call Dr. Dorantes's office. Continue your home medications as prescribed. Please return for fevers, new or worsening abdominal, back or flank pain, difficulty with urination, any vomiting, black or bloody stools, lightheadedness or passing out or other new or concerning changes. Prescriptions: New cefdinir 300 mg capsule 300 mg PO BID Qty: 20 0RF No Action tamsulosin 0.4 mg capsule 0.4 mg PO DAILY Qty: 30 0RF phenazopyridine 200 mg tablet 200 mg PO TID PRN (Reason: pain) Qty: 9 0RF ondansetron 4 mg tablet,disintegrating 4 mg PO TID-QID PRN (Reason: nausea and vomiting) Qty: 10 0RF atenolol 50 mg tablet 50 mg PO DAILY Qty: 30 0RF oxycodone-acetaminophen 10-325 mg tablet 1 tab PO Q6H PRN (Reason: pain) Qty: 20 0RF oxycodone-acetaminophen 10-325 mg tablet 1 tab PO Q8H PRN (Reason: pain) Qty: 14 0RF tamsulosin 0.4 mg capsule 0.4 mg PO DAILY Qty: 30 0RF metoprolol tartrate 50 mg tablet 50 mg PO BID Qty: 60 2RF metoprolol tartrate 50 mg tablet 50 mg PO BID Qty: 60 0RF lisinopril 20 mg tablet 20 mg PO BID Qty: 60 0RF amlodipine 5 mg tablet 5 mg PO DAILY Qty: 30 0RF hydrocodone-acetaminophen 5-325 mg tablet 1 tab PO Q6H PRN (Reason: pain) Qty: 14 0RF tamsulosin 0.4 mg capsule 0.4 mg PO DAILY Qty: 30 0RF Referrals: Jose Dorantes DO [Physician] - Miscellaneous,Doctor, MD [Primary Care Provider] - Stand Alone Forms: Patient Portal/API
[2024-05-30] VITALS: BP 178/91; PULSE 90; O2SAT 95
--- NOTE | 2024-05-30 | DI.RAD.S_ITS ---
PROCEDURE: XR KUB INDICATIONS: l flank pain, frequency, has ureteral stent TECHNIQUE: One view of the abdomen acquired. COMPARISON: [facility], CR, XR KUB, 04/23/2024, 19:04. FINDINGS: Surgical changes and devices: Left ureteral stent in place. Bowel: Bowel gas pattern is normal. Soft tissues: Again seen left-sided renal stones measuring up to 1.3 cm, evaluation is limited secondary to overlying bowel gas. Visualized solid organ contours appear normal in size. Bones: No suspicious bony lesions. IMPRESSION: Left ureteral stent in place. Again seen are left renal stones measuring up to 1.3 cm, however evaluation is limited secondary to overlying bowel gas. Dictated by: Rufino Roper M.D. on 05/30/2024 at 0:32 Approved by: Rufino Roper M.D. on 05/30/2024 at 0:34
[2024-05-30] MEDS: KETOROLAC 30 MG/ML VIAL 15 MG IV (00:07)
[2024-05-30 00:11] LABS: Add Manual Diff / Slide Review NO; Basophils Absolute Auto 100 /uL (0-100); Basophils Percent Auto 0.6 % (0-2); Eosinophils Absolute Auto 300 /uL (0-450); Eosinophils Percent Auto 2.5 % (2-4); Hematocrit 47.7 % (41-53); Hemoglobin 16.1 g/dL (13.5-17.5); Lymphocytes Absolute Auto 4100 /uL (1100-4500); Lymphocytes Percent Auto 38.5 % (25-40); Mean Corpuscular HGB Conc 33.7 % (30-36); Mean Corpuscular Hemoglobin 28.8 PG (26-34); Mean Corpuscular Volume 85.4 fL (80-100); Monocytes Absolute Auto 600 /uL (0-900); Monocytes Percent Auto 5.6 % (3-14); Neutrophils Absolute Auto 5600 /uL (1500-7000); Neutrophils Percent Auto 52.8 % (50-75); Platelet Count 356 X10^3/uL (150-400); Red Blood Cell Count 5.58 X10^6/uL (4.5-5.9); Red Cell Distribution Width 14.7 % (11.6-14.8); White Blood Cell Count 10.7 X10^3/uL (4.5-11.0)
[2024-05-30 00:17] LABS: Alanine Aminotransferase 43 IU/L (<50); Albumin 4.5 g/dL (3.5-5.0); Albumin Globulin Ratio 1.4 (1.0-2.8); Alkaline Phosphatase 110 U/L (38-126); Aspartate Aminotransferase 32 IU/L (17-59); BUN Creatinine Ratio 10.6 (6-22); Bilirubin Total 0.7 mg/dL (0.2-1.3); Blood Urea Nitrogen 10 mg/dL (9-20); Carbon Dioxide 27 mmol/L (22-32); Chloride 105 mmol/L (98-107); Estimated Glomerular Filt Rate > 60 mL/min (>60); Globulin 3.3 g/dL (1.7-4.1); Glucose 90 mg/dL (70-100); HEMOLYSIS 16 (0-50); Lipase 31 U/L (23-300); Potassium 3.6 mmol/L (3.4-5.1); Sodium 140 mmol/L (137-145); Total Protein 7.8 g/dL (6.3-8.2)
[2024-05-30 00:30] VITALS: PULSE 88; O2SAT 97
[2024-05-30 00:34] LABS: Appearance Urine UA TURBID; Bilirubin Urine UA NEGATIVE (NEGATIVE); Color Urine UA BROWN; Glucose Urine UA NEGATIVE (Negative); Ketones Urine UA NEGATIVE (NEGATIVE); Leukocyte Esterase Urine UA TRACE (NEGATIVE); Nitrite Urine UA NEGATIVE (Negative); Occult Blood Urine UA 3+ (Negative); Protein Urine UA 2+ (Negative); Specific Gravity Urine UA >=1.030 (1.000-1.035); Urobilinogen Urine UA 0.2 E.U./dL (0.2)
[2024-05-30 00:38] LABS: Bacteria Urine Many (>30); Culture Indicated Urine Specimen Cultured; RBC Urine >100/HPF (0-5/HPF); Squamous Epithelial Cell Urine 0-1 /HPF (0-5/HPF); Urine Volume 10mL (spun); WBC Urine 5-10/HPF (0-5/HPF)
[2024-05-30 01:00] VITALS: PULSE 81; O2SAT 94
[2024-05-30 01:03] VITALS: BP 187/95; PULSE 81; O2SAT 94
[2024-05-30] MEDS: cefTRIAXone 2,000 MG in SODIUM CHLORIDE 0.9% 100 ML 200 MG IV (01:15)
[2024-05-30 01:30] VITALS: BP 194/90; PULSE 83; O2SAT 94
== END 2024-05-30 01:55 | disposition home or self-care (01) ==
PROVIDERS: Emergency Provider Emergency Medicine
DX: N39.0 Urinary tract infection, site not specified (principal); I10 Essential (primary) hypertension; R31.9 Hematuria, unspecified; Z96.0 Presence of urogenital implants; Z87.442 Personal history of urinary calculi
CPT/HCPCS: 36415; 74018; 80053; 81001; 83690; 85025; 87086; 96365; 96375; 99284; J0696; J1885

== ENCOUNTER → 2024-06-13 14:14 | Outpatient (CLI) | payer OTHER, MEDICAID, SELFPAY ==
[2024-06-13 14:47] LABS: Appearance Urine UA TURBID; Bilirubin Urine UA NEGATIVE (NEGATIVE); Color Urine UA RED; Glucose Urine UA NEGATIVE (Negative); Ketones Urine UA NEGATIVE (NEGATIVE); Leukocyte Esterase Urine UA 2+ (NEGATIVE); Nitrite Urine UA POSITIVE (Negative); Occult Blood Urine UA 3+ (Negative); Protein Urine UA 2+ (Negative); Specific Gravity Urine UA 1.015 (1.000-1.035)
[2024-06-13 14:55] LABS: Urine Volume 10mL (spun)
[2024-06-13 14:56] LABS: Bacteria Urine Occasional (0-1); Culture Indicated Urine Specimen Cultured; RBC Urine 10-30/HPF (0-5/HPF); Squamous Epithelial Cell Urine 0-1 /HPF (0-5/HPF); WBC Urine 5-10/HPF (0-5/HPF)
== END ==
PROVIDERS: Visit Provider Urology
DX: N20.1 Calculus of ureter (principal)
CPT/HCPCS: 81001; 87086

== ENCOUNTER 2024-06-14 06:18 | Day surgery (SDC) | payer OTHER, MEDICAID, SELFPAY ==
[2024-06-14] VITALS (10 sets, daily range): BP systolic 129–212; BP diastolic 76–118; PULSE 70–85; RESP 8–17; TEMP 36.3–37.4; O2SAT 91–98; BMI 41.5
--- NOTE | 2024-06-14 | DI.RAD.S_ITS ---
PROCEDURE: XR ABDOMEN 1V INDICATIONS: STENT PLACEMENT TECHNIQUE: Low resolution intraoperative fluoroscopic spot films were obtained COMPARISON: [facility], , XR ABDOMEN 1V, 04/05/2024, 19:32. FINDINGS: Intraoperative fluoroscopic spot films show retrograde urogram and placement of double-J ureteral stent in good position IMPRESSION: Fluoroscopic guidance Approved by: Nba Graff M.D. on 06/14/2024 at 14:10
[2024-06-14] MEDS: LACTATED RINGERS 1,000 ML 21 ML IV ×2 (07:33→08:53)
[2024-06-14] MEDS: ACETAMINOPHEN 325 MG TABLET 975 MG PO (07:36)
--- NOTE | 2024-06-14 07:43 | PM.PREOP ---
Pre-operative Note COVID-19 COVID-19 status: Not tested Interval Note History & Physical reviewed/Exam performed by Physician: Yes Changes to H&P: No
[2024-06-14] MEDS: CLINDAMYCIN 900 MG/50 ML PIGGYBACK 50 MG IV (08:00)
--- NOTE | 2024-06-14 08:13 | SUR.OPER ---
Lithotomy on padded OR bed, head on pillow, arms secured on padded arm boards at <90 degrees abduction. Legs secured in padded yellow fins stirrups.
[2024-06-14] MEDS: iopamidoL 30 ML VIAL INJ (08:21)
--- NOTE | 2024-06-14 09:49 | P.OP_ITS ---
Procedure & Clinicians Procedure: Cystoscopy Left retrograde ureteropyelogram Left ureteroscopy, laser lithotripsy Left ureteral stent exchange Intraoperative interpretation of fluoroscopic images, total time < 1 hour, all images saved to PACS Same procedure as scheduled: Yes Indications: 44 y/o M w/ a large left proximal ureterolith in addition to a large left lower pole calculus who underwent a cystoscopy and left ureteral stent placement in [place] for management of uncontrolled pain returns today for definitive stone management via a left ureteroscopy, laser lithotripsy and left ureteral stent exchange. Surgeon: Jose Dorantes Click Yes if Unassisted: Yes Anesthesia Type: General Operative Notes Findings: Two large stones in the left lower pole calyx Closure Type: not applicable Specimen(s): other (Kidney stone) Estimated Blood Loss (mL): 3 Blood products transfused: none Procedure in detail: Procedures: 1) Cystoscopy 2) Left retrograde ureteropyelogram 3) Left ureteroscopy, laser lithotripsy 4) Left ureteral stent exchange 5) Intraoperative interpretation of fluoroscopic images, < 1 hour, all images saved to PACS Indication: Patient was identified in the preoperative holding area and consent confirmed. He was then brought to the operating room where general anesthesia was induced.? He was placed in the low lithotomy position. He was then prepped and draped in the usual sterile fashion. A surgical timeout was conducted and all were in agreement. ?Access to the bladder was obtained via a 30 degree cystoscope.? Complete cystoscopy was then performed and no concerning bladder masses or lesions were appreciated.? Bilateral ureteral orifices were easily identified and noted to be orthotopic in nature.? The previously placed left ureteral stent was easily visualized and externalized using the stent grasper.? A 0.035 sensor tip ureteral guidewire was advanced through the stent and into the left renal pelvis.? A 12/14Fr ureteral access sheath was then advanced over the ureteral guidewire and into the proximal left ureter.? The ureteral guidewire and inner obturator were then removed.? The flexible ureteroscope was then advanced thro ugh the ureteral access sheath and into the left renal collecting system. Complete pyeloscopy was then performed and two large stones were noted in the left lower pole calyx. Laser lithotripsy was then performed utilizing the 245 micron laser fiber.? All stone fragments >1mm in size were removed via the stone basket and sent for chemical analysis.? A retrograde pyelogram was then performed which noted no filling defects concerning for residual stone.? The ureteral guidewire was then readvanced through the ureteroscope and into the left renal pelvis.? The ureter was then directly visualized upon removal of the ureteroscope and ureteral access sheath and noted to be stone free.? The cystoscope was then backloaded over the ureteral guidewire and advanced into the bladder.? A 6Fr multi-length JJ ureteral stent with strings was then advanced over the ureteral guidewire.? Upon removal of the guidewire, a good curl was noted within the left renal pelvis upon fluoroscopy and visually within the bladder.? The bladder was then drained and the cystoscope was removed.? Anesthesia was reversed, he was extubated in the OR and transferred to the PACU in stable condition for recovery. Complications: none Post-operative Condition: stable Disposition: PACU Plan for aftercare: Discharge home from PACU. Will return to clinic in 2-3 months. Will have a RBUS performed in roughly 8 weeks to evaluate for residual hydronephrosis following his left ureteroscopy with laser lithotripsy.
[2024-06-14] MEDS: OXYCODONE IR 5 MG TABLET PO ×2 (10:25→10:55)
[2024-06-14] MEDS: ONDANSETRON 4 MG/2 ML INJ IV (10:28)
[2024-06-14] MEDS: HYDRALAZINE 20 MG/ML VIAL 5 MG IV (11:35)
--- NOTE | 2024-06-14 11:49 | SUR.PHASEI ---
Litzy Hughes CARD HAND notified of increased bp. Given hydralazine 5mg IV and bp decreased to prior to procedure. CARD HAND states okay to dc. Denies any symptoms
[2024-06-21 10:40] LABS: Ca oxalate dihydrate 30 % (.); Ca oxalate monohydr 60 % (.); Hydroxyapatite 10 % (.); Size 3x2 mm (.)
== END 2024-06-14 11:50 | disposition home or self-care (01) ==
PROVIDERS: Referring Provider Urology; Visit Provider Urology
PROC: (CPT 52356; principal; 2024-06-14 07:45)
DX: N20.0 Calculus of kidney (principal)
CPT/HCPCS: 52356; 74018; 76000; 82365; 82962; C1771; J0171; J0330; J0360; J1100; J2405; J2704; J3010; Q9967

== ENCOUNTER 2024-07-25 19:35 | Emergency (ER) | payer OTHER, MEDICAID, SELFPAY ==
[2024-07-25] VITALS (12 sets, daily range): BP systolic 165–236; BP diastolic 90–134; PULSE 56–84; RESP 12–20; TEMP 36.4; O2SAT 95–99; BMI 39.5
--- NOTE | 2024-07-25 19:44 | DI.CT.S_ITS ---
PROCEDURE: CT HEAD/BRAIN WO CON INDICATIONS: Hypertension and headache TECHNIQUE: Noncontrast 4.5 mm thick angled axial sections acquired from the foramen magnum to the vertex, with coronal and sagittal reformats. For radiation dose reduction, the following was used: automated exposure control, adjustment of mA and/or kV according to patient size. COMPARISON: [facility], CT, CT HEAD/BRAIN WO CON, 09/24/2022, 17:07. FINDINGS: Image quality: Diagnostic. CSF spaces: Basal cisterns are patent. No extra-axial fluid collections. Ventricles are normal in size and shape. Brain: No midline shift. No intracranial masses or hemorrhage. Hanna-white matter interface is normal. Skull and face: Calvarium and visualized facial bones are intact, without suspicious lesions. Sinuses: Visualized sinuses and mastoids are clear. IMPRESSION: No acute intracranial pathology. Dictated by: Rufino Roper M.D. on 07/25/2024 at 20:13 Approved by: Rufino Roper M.D. on 07/25/2024 at 20:16
[2024-07-25] MEDS: lisinopriL 20 MG TABLET PO (19:53)
--- NOTE | 2024-07-25 19:54 | EKG_ITS ---
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
[2024-07-25 20:24] LABS: Add Manual Diff / Slide Review NO; Basophils Absolute Auto 100 /uL (0-100); Basophils Percent Auto 0.7 % (0-2); Eosinophils Absolute Auto 100 /uL (0-450); Eosinophils Percent Auto 1.1 % (2-4); Hematocrit 48.7 % (41-53); Hemoglobin 16.1 g/dL (13.5-17.5); Lymphocytes Absolute Auto 2700 /uL (1100-4500); Lymphocytes Percent Auto 24.6 % (25-40); Mean Corpuscular Hemoglobin 28.7 PG (26-34); Mean Corpuscular Volume 86.9 fL (80-100); Monocytes Absolute Auto 500 /uL (0-900); Monocytes Percent Auto 4.2 % (3-14); Neutrophils Absolute Auto 7600 /uL (1500-7000); Neutrophils Percent Auto 69.4 % (50-75); Platelet Count 353 X10^3/uL (150-400); Red Cell Distribution Width 14.2 % (11.6-14.8)
--- NOTE | 2024-07-25 20:40 | ED_ITS ---
HPI - Headache General Chief Complaint: Headache Stated Complaint: sinus pressure Time Seen by Provider: 07/25/24 19:43 Source: patient Mode of arrival: Ambulatory Limitations: no limitations History of Present Illness HPI Narrative: Patient was a 44-year-old male. Has a history of hypertension. Has been off of his antihypertensive medicines for at least a week. Is here for evaluation of approximately 5 days of a headache. It was not sudden onset. No fevers. No neck pain. No balance issues. He was tried [id number] medications such as Tylenol and ibuprofen and Excedrin which take care of his headache for a short period of time but then it returns. Some sinus congestion but no coughing. No chest pain. No shortness of breath. He was unsure as to how many blood pressure medications that he takes but he thinks it is 2. Does not know the names of these medications. Does not have a primary doctor. States he was gotten his medications in the emergency department. Related Data Previous Rx's Medication Instructions Recorded atenolol 50 mg tablet 50 mg PO DAILY #30 tabs 12/10/20 lisinopril 20 mg tablet 20 mg PO BID #60 tabs 01/23/24 metoprolol tartrate 50 mg tablet 50 mg PO BID #60 tabs 01/23/24 amlodipine 5 mg tablet 5 mg PO DAILY #30 tabs 05/11/24 oxycodone 5 mg tablet 5 mg PO Q8H PRN pain (scale score 06/14/24 7-10) #7 tabs lisinopril 20 mg tablet 20 mg PO BID #60 tabs 07/25/24 metoprolol tartrate 50 mg tablet 50 mg PO BID #60 tabs 07/25/24 Allergies Allergy/AdvReac Type Severity Reaction Status Date / Time Penicillins Allergy Intermediate Childhood Verified 07/25/24 19:42 reaction Review of Systems Review of Systems ROS Unobtainable: All systems reviewed & are unremarkable except as noted in HPI and below Patient History Medical History Hypertension Surgical History S/P ureteral stent placement (04/05/24) S/P cystoscopy (04/05/24) Social History Smoking Status: Current every day smoker alcohol intake: current Smoking Status: Current every day smoker tobacco type: cigarettes alcohol intake frequency: holidays/special occasions only Alcohol type: other Exam Initial Vital Signs Initial Vital Signs: Vital Signs Temperature 97.6 F 07/25/24 19:37 Pulse Rate 62 07/25/24 19:37 Respiratory Rate 16 07/25/24 19:37 Blood Pressure 236/134 H 07/25/24 19:37 Pulse Oximetry 98 07/25/24 19:37 Oxygen Delivery Method Room Air 07/25/24 19:37 Const General: cooperative and No ill appearing HENMT Head: normal to inspection and normocephalic Resp Effort & Inspection: normal respiratory effort Auscultation: clear to auscultation bilaterally Cardio Rate: regular rate Rhythm: regular rhythm GI Inspection: normal to inspection and non-distended Palpation: soft Skin General: no rashes or lesions noted Neuro General: patient alert, patient awake, patient oriented x3, gait normal and moves all extremities Speech: speech normal Sensory Exam: no sensory deficits noted Extrem General: capillary refill normal Scores GCS Junior coma scale eye opening: Spontaneous Junior coma scale verbal response: Orientated Junior coma scale motor response: Obey commands Junior coma scale total score: 15 Course Orders Ordered: ED Orders 07/25/24 19:44 CT head/brain wo con Stat EKG-12 Lead Stat 07/25/24 20:12 Complete Blood Count AUTO DIFF Stat Comprehensive Metabolic Panel Stat Lipase Stat Troponin & CK Cardiac Panel Stat Discontinued Medications Amlodipine Besylate (Amlodipine 5 Mg Tablet) 5 mg PO NOW ONE Stop: 07/25/24 20:42 Last Admin: 07/25/24 20:51 Dose: 5 mg Documented By: Diphenhydramine HCl (Diphenhydramine 50 Mg/Ml Vial) 25 mg IV NOW ONE Stop: 07/25/24 22:08 Last Admin: 07/25/24 22:13 Dose: 25 mg Documented By: Acetaminophen (Ofirmev) 1,000 mg in 100 mls @ 400 mls/hr IV NOW ONE Stop: 07/25/24 20:54 Last Infusion: 07/25/24 21:14 Dose: Infused Documented By: Admin: 07/25/24 20:51 Dose: 400 mls/hr Documented By: Ketorolac Tromethamine (Ketorolac 30 Mg/Ml Vial) 30 mg IV NOW ONE Stop: 07/25/24 20:41 Last Admin: 07/25/24 20:51 Dose: 30 mg Documented By: Lisinopril (Lisinopril 20 Mg Tablet) 20 mg PO NOW ONE Stop: 07/25/24 19:46 Last Admin: 07/25/24 19:53 Dose: 20 mg Documented By: GRICEL Metoclopramide HCl (Metoclopramide 10 Mg/2 Ml Inj) 10 mg IV NOW ONE Stop: 07/25/24 22:08 Last Admin: 07/25/24 22:13 Dose: 10 mg Documented By: Vital Signs Vital signs: Vital Signs - 8 hr 07/25/24 19:37 07/25/24 19:53 07/25/24 20:10 Temperature 97.6 F Pulse Rate 62 81 63 Respiratory Rate 16 Blood Pressure 236/134 H 219/116 H Pulse Oximetry 98 99 Oxygen Delivery Method Room Air 07/25/24 20:11 07/25/24 20:11 07/25/24 20:30 Temperature Pulse Rate 65 65 Respiratory Rate 13 14 Blood Pressure 165/90 H Pulse Oximetry 98 96 Oxygen Delivery Method 07/25/24 20:31 07/25/24 20:31 07/25/24 20:58 Temperature Pulse Rate 70 Respiratory Rate 14 Blood Pressure 198/96 H 186/102 H Pulse Oximetry 96 Oxygen Delivery Method 07/25/24 20:58 07/25/24 21:00 07/25/24 21:20 Temperature Pulse Rate 57 L 56 L 69 Respiratory Rate 13 12 20 Blood Pressure Pulse Oximetry 97 95 99 Oxygen Delivery Method Room Air 07/25/24 21:20 07/25/24 22:04 07/25/24 22:04 Temperature Pulse Rate 79 Respiratory Rate Blood Pressure 185/104 H 203/121 H Pulse Oximetry 99 Oxygen Delivery Method 07/25/24 23:51 07/25/24 23:53 Temperature Pulse Rate 77 84 Respiratory Rate 16 Blood Pressure 208/101 H Pulse Oximetry 95 99 Oxygen Delivery Method Room Air MDM - Headache Lab Data Attestation: I reviewed the patient's lab results. 07/25/24 20:12 07/25/24 20:12 Labs: Lab Results 07/25/24 Range/Units 20:12 WBC 11.0 (4.5-11.0) X10^3/uL RBC 5.60 (4.5-5.9) X10^6/uL Hgb 16.1 (13.5-17.5) g/dL Hct 48.7 (41-53) % MCV 86.9 (80-100) fL MCH 28.7 (26-34) PG MCHC 33.0 (30-36) % RDW 14.2 (11.6-14.8) % Plt Count 353 (150-400) X10^3/uL Neut % (Auto) 69.4 (50-75) % Lymph % (Auto) 24.6 L (25-40) % [place] % (Auto) 4.2 (3-14) % Eos % (Auto) 1.1 L (2-4) % Baso % (Auto) 0.7 (0-2) % Neut # (Auto) 7600 H (1120-2589) /uL Lymph # (Auto) 2700 (5017-7539) /uL [place] # (Auto) 500 (0-900) /uL Eos # (Auto) 100 (0-450) /uL Baso # (Auto) 100 (0-100) /uL Sodium 137 (137-145) mmol/L Potassium 3.9 (3.4-5.1) mmol/L Chloride 104 (98-107) mmol/L Carbon Dioxide 28 (22-32) mmol/L BUN 18 (9-20) mg/dL Creatinine 0.90 (0.66-1.25) mg/dL Estimated GFR > 60 (>60) mL/min BUN/Creatinine Ratio 20.0 (6-22) Glucose 145 H (70-100) mg/dL Calcium 9.1 (8.4-10.2) mg/dL Total Bilirubin 0.6 (0.2-1.3) mg/dL AST 31 (17-59) IU/L ALT 39 (<50) IU/L Alkaline Phosphatase 107 (38-126) U/L Total Creatine Kinase 166 (55-170) U/L Troponin I 0.027 (0.01-0.034) ng/mL Total Protein 7.8 (6.3-8.2) g/dL Albumin 4.3 (3.5-5.0) g/dL Globulin 3.5 (1.7-4.1) g/dL Albumin/Globulin Ratio 1.2 (1.0-2.8) Lipase 43 (23-300) U/L Imaging Data CT scan - head: Radiologist's Impression: PROCEDURE: CT HEAD/BRAIN WO CON INDICATIONS: Hypertension and headache TECHNIQUE: Noncontrast 4.5 mm thick angled axial sections acquired from the foramen magnum to the vertex, with coronal and sagittal reformats. For radiation dose reduction, the following was used: automated exposure control, adjustment of mA and/or kV according to patient size. COMPARISON: [facility], CT, CT HEAD/BRAIN WO CON, 09/24/2022, 17:07. FINDINGS: Image quality: Diagnostic. CSF spaces: Basal cisterns are patent. No extra-axial fluid collections. Ventricles are normal in size and shape. Brain: No midline shift. No intracranial masses or hemorrhage. Hanna-white matter interface is normal. Skull and face: Calvarium and visualized facial bones are intact, without suspicious lesions. Sinuses: Visualized sinuses and mastoids are clear. IMPRESSION: No acute intracranial pathology. ECG Data Attestation: I personally reviewed and interpreted this ECG as follows: Interpretation: Sinus rhythm Ventricular rate is 76 LVH Normal QRS Nonspecific ST T wave changes MDM Narrative Medical decision making narrative: Head CT is unremarkable. Was significantly hypertensive upon arrival. Review of his medical record shows that he was a prescription for lisinopril, metoprolol, atenolol, amlodipine. He was unsure exactly which medications that he takes. He did receive a dose of amlodipine and lisinopril. This did improve his blood pressure and after medications here in the ER he reports improvement of his headache as well. I have low suspicion for intracranial hemorrhage based on his presentation. Low suspicion for ACS, CVA, TIA, acute renal failure. I reviewed his medical record shows that initially he was prescribed lisinopril and metoprolol. At some point amlodipine was given to him out of the ER but when I asked him about these medications he thinks that it was the lisinopril and metoprolol that he was taken that he ran out of 1 week ago. I did prescribe a refill of these medications. Of symptoms will discharge home with return precautions. He expressed understanding and agreement with the plan. Discharge Plan Departure Patient Disposition: Home Clinical Impression: Headache, Hypertension Instructions: Essential Hypertension, DI for Headache Activity Restrictions/Additional Instructions: It is important that you take your blood pressure medications as directed. That is also have primary care doctor. You can contact [phone] during business hours to help you establish a new primary doctor. Return to the emergency department for new symptoms. Prescriptions: New lisinopril 20 mg tablet 20 mg PO BID Qty: 60 3RF metoprolol tartrate 50 mg tablet 50 mg PO BID Qty: 60 3RF No Action atenolol 50 mg tablet 50 mg PO DAILY Qty: 30 0RF oxycodone 5 mg tablet 5 mg PO Q8H PRN (Reason: pain (scale score 7-10)) Qty: 7 0RF metoprolol tartrate 50 mg tablet 50 mg PO BID Qty: 60 0RF lisinopril 20 mg tablet 20 mg PO BID Qty: 60 0RF amlodipine 5 mg tablet 5 mg PO DAILY Qty: 30 0RF Referrals: Miscellaneous,Doctor, MD [Primary Care Provider] - Stand Alone Forms: Patient Portal/API/Survey
[2024-07-25 20:41] LABS: Alanine Aminotransferase 39 IU/L (<50); Albumin 4.3 g/dL (3.5-5.0); Albumin Globulin Ratio 1.2 (1.0-2.8); Alkaline Phosphatase 107 U/L (38-126); Aspartate Aminotransferase 31 IU/L (17-59); Bilirubin Total 0.6 mg/dL (0.2-1.3); Blood Urea Nitrogen 18 mg/dL (9-20); Calcium 9.1 mg/dL (8.4-10.2); Carbon Dioxide 28 mmol/L (22-32); Chloride 104 mmol/L (98-107); Creatine Kinase 166 U/L (55-170); Estimated Glomerular Filt Rate > 60 mL/min (>60); Globulin 3.5 g/dL (1.7-4.1); Glucose 145 mg/dL (70-100); HEMOLYSIS < 15 (0-50); Lipase 43 U/L (23-300); Potassium 3.9 mmol/L (3.4-5.1); Sodium 137 mmol/L (137-145); Total Protein 7.8 g/dL (6.3-8.2)
[2024-07-25] MEDS: KETOROLAC 30 MG/ML VIAL IV (20:51)
[2024-07-25] MEDS: ACETAMINOPHEN IV 1,000 MG/100 ML VIAL 400 MG IV (20:51)
[2024-07-25] MEDS: AMLODIPINE 5 MG TABLET PO (20:51)
[2024-07-25 20:52] LABS: Troponin I 0.027 ng/mL (0.01-0.034)
[2024-07-25] MEDS: METOCLOPRAMIDE 10 MG/2 ML INJ IV (22:13)
[2024-07-25] MEDS: diphenhydrAMINE 50 MG/ML VIAL 25 MG IV (22:13)
== END 2024-07-25 23:59 | disposition home or self-care (01) ==
PROVIDERS: Emergency Provider Emergency Medicine
DX: R51.9 Headache, unspecified (principal); I10 Essential (primary) hypertension
CPT/HCPCS: 36415; 70450; 80053; 82550; 83690; 84484; 85025; 93005; 93010; 96365; 96375; 99284; J0134; J1200; J1885; J2765

== ENCOUNTER 2024-10-21 21:31 | Emergency (ER) | payer OTHER, SELFPAY ==
[2024-10-21 21:33] VITALS: BP 214/98; PULSE 90; RESP 19; TEMP 36.8; O2SAT 97; BMI 38.2
--- NOTE | 2024-10-21 22:08 | PC.NURSE ---
Pt not in waiting room when called to be placed in exam room.
== END 2024-10-21 22:14 | disposition left against medical advice (07) ==
PROVIDERS: Emergency Provider Emergency Medicine
DX: R50.9 Fever, unspecified (principal); R06.02 Shortness of breath
CPT/HCPCS: 99281

== ENCOUNTER 2024-10-23 08:58 | Emergency (ER) | payer OTHER, SELFPAY ==
[2024-10-23] VITALS (13 sets, daily range): BP systolic 148–216; BP diastolic 83–108; PULSE 64–99; RESP 12–26; TEMP 36.7; O2SAT 94–98; BMI 38.6
--- NOTE | 2024-10-23 09:05 | DI.RAD.S_ITS ---
PROCEDURE: XR CHEST 1V INDICATIONS: Shortness of breath TECHNIQUE: One view of the chest was acquired. COMPARISON: [facility], CR, XR CHEST 1V, 01/23/2024, 14:31. FINDINGS: Surgical changes and devices: None. Lungs and pleura: Lungs are clear. No pleural effusions or pneumothorax. Mediastinum: Mediastinal contours appear normal. Heart size is normal. Bones and chest wall: No suspicious bony lesions. Overlying soft tissues appear unremarkable. IMPRESSION: No acute cardiopulmonary abnormality is seen. Dictated by: Richy Ortega M.D. on 10/23/2024 at 9:30 Approved by: Richy Ortega M.D. on 10/23/2024 at 9:34
--- NOTE | 2024-10-23 09:07 | ED_ITS ---
HPI - SOB/Dyspnea General Chief Complaint: Shortness of Breath/Dyspnea Stated Complaint: difficulty breathing Time Seen by Provider: 10/23/24 09:06 History of Present Illness HPI Narrative: 44-year-old male with a past medical history of hypertension comes into the ED from home for evaluation of flu-like symptoms. He states that he has been having chest congestion nasal congestion shortness of breath ongoing persistent for the past few days, states he did have a fever. States that he came here previously but left because the wait was too long. Patient denies any actual headache chest pain nausea vomiting abdominal pain or any other GI/ symptoms. He also states he has not been taking his blood pressure medication which is metoprolol 50 mg because he ran out of it and needs a new prescription. Related Data Previous Rx's Medication Instructions Recorded atenolol 50 mg tablet 50 mg PO DAILY #30 tabs 12/10/20 lisinopril 20 mg tablet 20 mg PO BID #60 tabs 01/23/24 metoprolol tartrate 50 mg tablet 50 mg PO BID #60 tabs 01/23/24 amlodipine 5 mg tablet 5 mg PO DAILY #30 tabs 05/11/24 oxycodone 5 mg tablet 5 mg PO Q8H PRN pain (scale score 06/14/24 7-10) #7 tabs lisinopril 20 mg tablet 20 mg PO BID #60 tabs 07/25/24 metoprolol tartrate 50 mg tablet 50 mg PO BID #60 tabs 07/25/24 metoprolol tartrate 50 mg tablet 50 mg PO BID 1 month #60 tabs 10/23/24 Allergies Allergy/AdvReac Type Severity Reaction Status Date / Time Penicillins Allergy Intermediate Childhood Verified 10/23/24 09:05 reaction Review of Systems Review of Systems Narrative: General: Positive fever chills HEENT: Denies headache, eye drainage, eye irritation, head trauma, sore throat, voice change Cardiovascular: Denies any chest pain, palpitations,tachycardia Respiratory: Positive chest congestion, shortness of breath, cough, denies wheeze, stridor GI/: Denies any abdominal pain, nausea, vomiting, diarrhea, bright red blood per rectum, melanotic stools, urinary frequency, urinary retention, dysuria, hematuria MSK: Denies any joint pain, muscle pains, swelling Skin: Denies any rashes, lesions, discoloration Neuro: Denies any headache, lightheadedness, dizziness, fainting, weakness Psych: Denies SI/HI Patient History Medical History Hypertension Surgical History S/P ureteral stent placement (04/05/24) S/P cystoscopy (04/05/24) Social History household members: friend(s) Smoking Status: Current every day smoker alcohol intake: current Smoking Status: Current every day smoker tobacco type: cigarettes alcohol intake frequency: holidays/special occasions only Alcohol type: other Exam Narrative Exam Narrative: General: Cooperative, comfortable, well-developed, not in acute distress HEENT: Positive nasal congestion, Normocephalic, atraumatic, PERRLA, normal sclera, eyelids normal, Neck: Active full range of motion, atraumatic Chest: Normal to inspection, negative crepitus, no overlying erythema ecchymosis Respiratory: Normal respiratory effort, not in acute respiratory distress, clear to auscultation bilaterally negative cough, wheeze, tachypnea, rhonchi, rales Cardiology: Regular rate rhythm negative gallop, murmur, rubs GI/: Normal to inspection, soft, nonrigid, no tenderness to palpation, exam deferred MSK: Full range of active range of motion of all 4 extremities, atraumatic Skin: No rashes lesions noted Neuro: Alert awake oriented x3, moves all 4 extremities spontaneously, cranial nerves intact, able to answer all questions appropriately follows commands appropriately Psych: Cooperative, negative suicidal or homicidal ideations Initial Vital Signs Initial Vital Signs: Vital Signs Temperature 98.0 F 10/23/24 09:00 Pulse Rate 92 H 10/23/24 09:00 Respiratory Rate 17 10/23/24 09:00 Blood Pressure 202/106 H 10/23/24 09:00 Pulse Oximetry 97 10/23/24 09:00 Oxygen Delivery Method Room Air 10/23/24 09:00 Course Orders Ordered: ED Orders 10/23/24 09:05 XR chest 1V Stat EKG-12 Lead Stat Measure peak expiratory flow ONCE RT Consult Eval and Treat NOW 10/23/24 09:09 Complete Blood Count AUTO DIFF Stat Comprehensive Metabolic Panel Stat MAG [Magnesium] Stat NT-proBNP (BNP-Adult 18+) Stat Troponin I Stat 10/23/24 09:11 Covid-19 + FLU A/B + RSV - PCR Stat 10/23/24 11:08 Trop I [Troponin I] Stat Discontinued Medications Albuterol (Albuterol 2.5 Mg/3 Ml Neb (Adult)) 2.5 mg INH NOW ONE Stop: 10/23/24 09:13 Last Admin: 10/23/24 09:20 Dose: 2.5 mg Documented By: TAY Metoprolol Succinate (Metoprolol Er 50 Mg Tablet) 50 mg PO NOW ONE Stop: 10/23/24 09:11 Last Admin: 10/23/24 09:22 Dose: 50 mg Documented By: ERNST Vital Signs Vital signs: Vital Signs - 8 hr 10/23/24 09:00 10/23/24 09:02 10/23/24 09:04 Temperature 98.0 F Pulse Rate 92 H 99 H Respiratory Rate 17 Blood Pressure 202/106 H 202/106 H Pulse Oximetry 97 98 Oxygen Delivery Method Room Air 10/23/24 09:04 10/23/24 09:22 10/23/24 09:30 Temperature Pulse Rate 98 H 88 86 Respiratory Rate 13 Blood Pressure 202/106 H Pulse Oximetry 95 94 Oxygen Delivery Method 10/23/24 09:31 10/23/24 09:31 10/23/24 10:00 Temperature Pulse Rate 86 77 Respiratory Rate 12 19 Blood Pressure 216/108 H Pulse Oximetry 94 95 Oxygen Delivery Method 10/23/24 10:00 10/23/24 10:15 10/23/24 10:15 Temperature Pulse Rate 64 Respiratory Rate 16 Blood Pressure 177/89 H 161/88 H Pulse Oximetry 95 Oxygen Delivery Method 10/23/24 10:30 10/23/24 10:35 10/23/24 10:35 Temperature Pulse Rate 81 76 Respiratory Rate 23 17 Blood Pressure 177/95 H Pulse Oximetry 96 97 Oxygen Delivery Method 10/23/24 10:45 10/23/24 10:45 10/23/24 11:00 Temperature Pulse Rate 76 69 Respiratory Rate 26 H 18 Blood Pressure 189/94 H Pulse Oximetry 97 95 Oxygen Delivery Method 10/23/24 11:00 10/23/24 11:18 10/23/24 11:18 Temperature Pulse Rate 72 Respiratory Rate 19 Blood Pressure 178/83 H 148/92 H Pulse Oximetry 95 Oxygen Delivery Method MDM - SOB/Dyspnea Differential Diagnosis Differential diagnosis: Likely acute exacerbation of chronic obstructive airways disease, congestive heart failure, community acquired pneumonia, asthma with exacerbation and other (ACS, electrolyte abnormality, COVID, flu, RSV) Lab Data 10/23/24 09:09 10/23/24 09:09 Labs: Lab Results 10/23/24 10/23/24 Range/Units 09:09 09:11 WBC 6.9 (4.5-11.0) X10^3/uL RBC 6.29 H (4.5-5.9) X10^6/uL Hgb 17.9 H (13.5-17.5) g/dL Hct 53.2 H (41-53) % MCV 84.6 (80-100) fL MCH 28.4 (26-34) PG MCHC 33.6 (30-36) % RDW 14.8 (11.6-14.8) % Plt Count 208 (150-400) X10^3/uL Neut % (Auto) 50.5 (50-75) % Lymph % (Auto) 39.0 (25-40) % [place] % (Auto) 8.9 (3-14) % Eos % (Auto) 0.6 L (2-4) % Baso % (Auto) 1.0 (0-2) % Neut # (Auto) 3500 (5958-7568) /uL Lymph # (Auto) 2700 (7942-3006) /uL [place] # (Auto) 600 (0-900) /uL Eos # (Auto) 0 (0-450) /uL Baso # (Auto) 100 (0-100) /uL Sodium 136 L (137-145) mmol/L Potassium 3.7 (3.4-5.1) mmol/L Chloride 101 (98-107) mmol/L Carbon Dioxide 23 (22-32) mmol/L BUN 13 (9-20) mg/dL Creatinine 0.78 (0.66-1.25) mg/dL Estimated GFR > 60 (>60) mL/min BUN/Creatinine Ratio 16.7 (6-22) Glucose 169 H (70-100) mg/dL Calcium 8.7 (8.4-10.2) mg/dL Magnesium 1.8 (1.6-2.3) mg/dL Total Bilirubin 0.3 (0.2-1.3) mg/dL AST 41 (17-59) IU/L ALT 49 (<50) IU/L Alkaline Phosphatase 97 (38-126) U/L Troponin I 0.070 H (0.01-0.034) ng/mL NT-Pro-B Natriuret Pep 1200 H (<125) pg/mL Total Protein 7.4 (6.3-8.2) g/dL Albumin 4.2 (3.5-5.0) g/dL Globulin 3.2 (1.7-4.1) g/dL Albumin/Globulin Ratio 1.3 (1.0-2.8) SARS-CoV-2 (PCR) Negative (Negative) Influenza A (RT-PCR) Flu a negative (NEGATIVE) Influenza B (RT-PCR) Flu b positive H (NEGATIVE) RSV (PCR) Negative (Negative) Imaging Data Chest x-ray: Radiologist's Impression: [address] [address] XRay Report Signed Patient: Tushar Herron MR#: [id number] : 1980 Acct:[id number] Age/Sex: 44 / M Date of Service: 10/23/24 Loc: ED Accession Number: [id number] Procedure: XR chest 1V Ordering Provider: Graham Thomason D.O. PROCEDURE: XR CHEST 1V INDICATIONS: Shortness of breath TECHNIQUE: One view of the chest was acquired. COMPARISON: [facility], , XR CHEST 1V, 01/23/2024, 14:31. FINDINGS: Surgical changes and devices: None. Lungs and pleura: Lungs are clear. No pleural effusions or pneumothorax. Mediastinum: Mediastinal contours appear normal. Heart size is normal. Bones and chest wall: No suspicious bony lesions. Overlying soft tissues appear unremarkable. IMPRESSION: No acute cardiopulmonary abnormality is seen. ECG Data Interpretation: EKG interpreted ED physician sinus 98 beats per minute QTC [address] changes no STEMI MDM Narrative Medical decision making narrative: 44-year-old male with a history of hypertension presents for flu-like symptoms, ongoing persistent for the past few days. He states that he has been having nasal congestion chest congestion, he also states that he has run out of his blood pressure medication is requesting a prescription for this here. He does admit to intermittent fevers along with the symptoms. But denies any known sick contacts or recent travel. He denies any headache visual disturbances chest pain nausea vomiting abdominal pain or any other GI/ symptoms time. EKG was performed here nonischemic in nature. Lab work troponin and chest x-ray with the following results: Chest x-ray without any acute cardiopulmonary abnormalities, CBC without any leukocytosis no anemia, platelets normal. Patient did have mildly elevated BNP at 1200 however patient not requiring any supplemental oxygen, initial troponin was non determinant at 0.070 with a repeat 0.061, most likely type 2 spilled given patient with hypertension he has not having any actual chest pain, patient was noted to be flu B positive. Patient was given strict return precautions he verbalized understanding of this and agrees with follow up with primary care cardiology he will also be sent home with prescription for his antihypertensives. Discharge Plan Departure Patient Disposition: Home Clinical Impression: Influenza B, Hypertension Instructions: DI for Influenza -- Adult Activity Restrictions/Additional Instructions: Please follow up with your primary care doctor, as well as Cardiology Please read the discharge instructions sheet carefully and bring all papers to all doctor follow-up visits, as it may contain information that your doctor may want to see. Disease processes change and evolve, if your symptoms worsen or if you develop any new symptoms that are concerning to you please return for evaluation. Your evaluation today does not show any evidence of any life- threatening/serious illnesses requiring admission to the hospital or surgery. Please follow-up with your doctor for re-evaluation in approximately 1 day. Seek immediate medical attention for any worrisome symptoms. *If you do not have a primary care provider please contact the [facility] Resource line at [phone]. They will ask some questions about your medical history and help get you set up with a doctor in the community. Prescriptions: New metoprolol tartrate 50 mg tablet 50 mg PO BID 30 Days Qty: 60 0RF No Action atenolol 50 mg tablet 50 mg PO DAILY Qty: 30 0RF oxycodone 5 mg tablet 5 mg PO Q8H PRN (Reason: pain (scale score 7-10)) Qty: 7 0RF lisinopril 20 mg tablet 20 mg PO BID Qty: 60 3RF metoprolol tartrate 50 mg tablet 50 mg PO BID Qty: 60 3RF metoprolol tartrate 50 mg tablet 50 mg PO BID Qty: 60 0RF lisinopril 20 mg tablet 20 mg PO BID Qty: 60 0RF amlodipine 5 mg tablet 5 mg PO DAILY Qty: 30 0RF Referrals: Darion Mejia MD [Physician] - Stand Alone Forms: Patient Portal/API/Survey
--- NOTE | 2024-10-23 09:10 | EKG_ITS ---
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
[2024-10-23] MEDS: ALBUTEROL 2.5 MG/3 ML NEB (ADULT) INH (09:20)
[2024-10-23] MEDS: METOPROLOL ER 50 MG TABLET PO (09:22)
[2024-10-23 09:30] LABS: Add Manual Diff / Slide Review NO; Basophils Absolute Auto 100 /uL (0-100); Eosinophils Absolute Auto 0 /uL (0-450); Eosinophils Percent Auto 0.6 % (2-4); Hematocrit 53.2 % (41-53); Hemoglobin 17.9 g/dL (13.5-17.5); Lymphocytes Absolute Auto 2700 /uL (1100-4500); Mean Corpuscular HGB Conc 33.6 % (30-36); Mean Corpuscular Hemoglobin 28.4 PG (26-34); Mean Corpuscular Volume 84.6 fL (80-100); Monocytes Absolute Auto 600 /uL (0-900); Monocytes Percent Auto 8.9 % (3-14); Neutrophils Absolute Auto 3500 /uL (1500-7000); Neutrophils Percent Auto 50.5 % (50-75); Platelet Count 208 X10^3/uL (150-400); Red Blood Cell Count 6.29 X10^6/uL (4.5-5.9); Red Cell Distribution Width 14.8 % (11.6-14.8); White Blood Cell Count 6.9 X10^3/uL (4.5-11.0)
[2024-10-23 09:41] LABS: Magnesium 1.8 mg/dL (1.6-2.3)
[2024-10-23 09:42] LABS: Alanine Aminotransferase 49 IU/L (<50); Albumin 4.2 g/dL (3.5-5.0); Albumin Globulin Ratio 1.3 (1.0-2.8); Alkaline Phosphatase 97 U/L (38-126); Aspartate Aminotransferase 41 IU/L (17-59); BUN Creatinine Ratio 16.7 (6-22); Bilirubin Total 0.3 mg/dL (0.2-1.3); Blood Urea Nitrogen 13 mg/dL (9-20); Calcium 8.7 mg/dL (8.4-10.2); Carbon Dioxide 23 mmol/L (22-32); Chloride 101 mmol/L (98-107); Estimated Glomerular Filt Rate > 60 mL/min (>60); Globulin 3.2 g/dL (1.7-4.1); Glucose 169 mg/dL (70-100); HEMOLYSIS 20 (0-50); Potassium 3.7 mmol/L (3.4-5.1); Sodium 136 mmol/L (137-145); Total Protein 7.4 g/dL (6.3-8.2)
[2024-10-23 09:53] LABS: Influenza A - CEPHEID Flu A NEGATIVE (NEGATIVE); Influenza B - CEPHEID Flu B POSITIVE (NEGATIVE); Respiratory Syncytial Virus Negative (Negative)
[2024-10-23 09:54] LABS: COVID-19 CEPHEID 4-PLEX PCR Negative (Negative)
[2024-10-23 09:54] LABS: NT-proBNP (BNP-Adult 18+) 1200 pg/mL (<125)
[2024-10-23 11:44] LABS: Troponin I 0.061 ng/mL (0.01-0.034)
== END 2024-10-23 11:54 | disposition home or self-care (01) ==
PROVIDERS: Emergency Provider Student in an Organized Health Care Education/Training Program
DX: J10.1 Influenza due to other identified influenza virus with other respiratory manifestations (principal); I10 Essential (primary) hypertension; Z76.0 Encounter for issue of repeat prescription; F17.210 Nicotine dependence, cigarettes, uncomplicated
CPT/HCPCS: 87635; 87400; 87420; 0241U; 36415; 71045; 80053; 83735; 83880; 84484; 85025; 93005; 99284; J7613